=== PATIENT | male | born 1940 | race Caucasian/White ===

== ENCOUNTER 2020-03-08 10:51 | Outpatient (CLI) | payer MEDICARE, SELFPAY ==
--- NOTE | ~2020-03-08 | XR_ITS ---
XR chest 2V DATE: 03/08/2020 11:15 INDICATION: Preoperative evaluation. History of hypertension. TECHNIQUE: Frontal and lateral views COMPARISON: 06/25/2010 two-view chest FINDINGS: Normal heart size. Aortic arch calcification. No hilar or mediastinal enlargement. The lungs are moderately hyperinflated but clear of infiltrate or consolidation. No pleural effusion or pulmonary vascular congestion or pneumothorax. Dextroscoliosis and degenerative spurring of the thoracic spine. Bilateral glenohumeral joint replacement. IMPRESSION: Moderate hyperinflation; no active cardiopulmonary disease Aortic calcification Reviewed, dictated and finalized at location A.
--- NOTE | 2020-03-08 11:22 | ECG_ITS ---
Measurements Intervals [place] Rate: 95 P: CT: 0 QRS: 91 QRSD: 114 T: -3 QT: 388 QTc: 488 Interpretive Statements ATRIAL FIBRILLATION RIGHT AXIS DEVIATION INCOMPLETE RIGHT BUNDLE BRANCH BLOCK BORDERLINE ST-T WAVE ABNORMALITY- INFERIOR LEADS ABNORMAL ECG Electronically Signed On 03-08-2020 11:41:23 CDT by Flako Whiteside D.O.
== END 2020-03-08 10:52 | disposition home or self-care (01) ==
LOC: ANHIMG 10:53
PROVIDERS: PCP Family Medicine; Visit Provider Family Medicine
DX: Z01.818 Encounter for other preprocedural examination (principal); I50.30 Unspecified diastolic (congestive) heart failure; I48.91 Unspecified atrial fibrillation; I70.0 Atherosclerosis of aorta; R91.8 Other nonspecific abnormal finding of lung field
CPT/HCPCS: 71046; 93005

== ENCOUNTER 2020-07-31 15:00 | Inpatient (IN) | payer MEDICARE, SELFPAY ==
[2020-07-31] VITALS (11 sets, daily range): BP systolic 80–104; BP diastolic 47–66; PULSE 68–131; RESP 12–24; TEMP 36.3–39.1; O2SAT 94–96; BMI 34.2
--- NOTE | ~2020-07-31 | XR_ITS ---
EXAMINATION: XR foot LT min 3V DATE: 07/31/2020 16:28 INDICATION: Left foot swelling and erythema. TECHNIQUE: 4 views of left foot were obtained. COMPARISON: Left foot radiographs 12/17/2009 FINDINGS: There is severe hallux valgus. No acute fracture. There is chronic periosteal reaction of t he diaphyses of the second-fourth metatarsals, likely secondary to venous stasis. There is mild osteo arthritis of first metatarsophalangeal joint and many of the interphalangeal joints and midfoot joint s. There is severe osteoarthritis of second tarsometatarsal joint. There are enthesophytes at the pos terior and plantar aspects of calcaneal tuberosity. IMPRESSION: 1. Polyarticular osteoarthritis. 2. Severe hallux valgus. Reviewed, dictated and finalized at location A. ANCE COUNSELOR
--- NOTE | ~2020-07-31 | CT_ITS ---
EXAMINATION: CT abdomen pelvis w con DATE: 08/04/2020 11:58 INDICATION: Low abdominal pain. TECHNIQUE: Computed tomography (CT) of the abdomen and pelvis was performed with 100 mL Omnipaque 350 intravenous contrast. Automated exposure control and iterative reconstruction technique were employe d. The dose-length product was 1302.25 mGy-cm. COMPARISON: CT abdomen and pelvis 02/06/2015 FINDINGS: The visualized portions of the lung bases demonstrate smooth septal thickening, consistent with mild pulmonary edema. There are small pleural effusions. The heart size is normal. There are cor onary artery calcifications. No pericardial effusion. There is a 4 mm cyst in the liver. The gallblad frances, spleen, pancreas, and adrenal glands are normal. There are cysts in the kidneys measuring up to 1.4 cm on the right. The prostate is mildly enlarged. There are no dilated loops of bowel. The append ix is normal. There are no pathologically enlarged lymph nodes. There is no free intraperitoneal flui d. The bladder is markedly distended. Body wall edema is noted. There is a total right hip arthroplas ty. There is levocurvature and severe spondylosis of lumbar spine. There is a hemangioma in T9 verteb ral body. IMPRESSION: 1. Mild pulmonary edema. 2. Small pleural effusions. Reviewed, dictated and finalized at location A. ING PROPERTY MANAGER
--- NOTE | ~2020-07-31 | MR_ITS ---
EXAMINATION: MR foot LT wo/w con DATE: 08/02/2020 08:43 INDICATION: Left hallux osteomyelitis TECHNIQUE: Magnetic resonance imaging (MRI) of the left fore/mid foot was performed without intraveno us contrast. Sequences included sagittal T1-weighted FSE, sagittal fluid sensitive FSE STIR, coronal PD-weighted FS FSE, coronal T1-weighted FSE, axial PD-weighted FS FSE, and axial PD-weighted FSE. COMPARISON: Left foot radiographs dated 07/31/2020 FINDINGS: Hallux valgus. Normal marrow signal throughout with no reactive edema, fracture, ostomy myelitis or o ther pathologic marrow replacing process. Skin thickening with suggestion of overlying blister or ban daging about the plantar/medial aspect of the base of the great toe with intact appearing underlying dermal layer with edema in the subcutaneous fat but no abscess or sinus tract. Polyarticular osteoart hritis, severe at the second tarsal metatarsal joint, moderate at the fourth and fifth tarsal metatar delfino joints and mild at the first and third tarsal metatarsal, first, second and fifth metatarsophalan geal and multiple interphalangeal joints. Mild hypertrophic changes at the margins of a chronic juxta articular erosion with corticated margins and overhanging edges at the medial head of the first meta tarsal which could be related to bunion or gout. Additional enthesophyte at the lateral head of the f irst metatarsal at the insertion of the intact lateral collateral ligament complex which appears lax due to the valgus angulation. Remaining collateral ligament complex at the metatarsophalangeal and in terphalangeal are also intact. Flexor and extensor tendons are normal. No joint effusions. Additional subcutaneous edema over the dorsum of the forefoot. Fatty atrophy of the intrinsic musculature of th e foot. No abnormally enhancing masses identified. IMPRESSION: 1. No evident abscess, septic arthritis or osteomyelitis. 2. Polyarticular osteoarthritis as detailed above. 3. Chronic appearing erosion at the medial head of the first metatarsal which could be related to hailey lux valgus and bunion formation or gout. Reviewed, dictated and finalized at location A. SHANK COVERER IMPRESSION: 1. No evident abscess, septic arthritis or osteomyelitis. 2. Polyarticular osteoarthritis as detailed above. 3. Chronic appearing erosion at the medial head of the first metatarsal which c ould be related to hallux valgus and bunion formation or gout.
--- NOTE | ~2020-07-31 | US_ITS ---
EXAMINATION: US venous doppler LE EXAM DATE: 08/01/2020 14:10 INDICATION: LLE swelling LLE SWELLING TECHNIQUE: Multiple grayscale, color flow and Doppler images of the lower extremity deep venous syste ms bilaterally were obtained and reviewed. Comparison is made to prior examination from 10/24/2007. FINDINGS: Right side: The right common femoral, femoral and profunda veins demonstrate normal color flow, respi ratory variation, augmentation and compressibility. Compressibility, color flow confirmed within the right popliteal, posterior tibial, peroneal, and greater saphenous veins. Left side: The left common femoral, femoral and profunda veins demonstrate normal color flow, respira tory variation, augmentation and compressibility. Compressibility, color flow confirmed within the l eft popliteal, posterior tibial, peroneal, and greater saphenous veins. Mildly enlarged inguinal lymp h node likely reactive. IMPRESSION: 1. No lower extremity deep venous thrombosis bilaterally. Reviewed, dictated and finalized at location B. OR RISK ANALYST
[2020-07-31 16:08] LABS: Basophils Percent Auto 0.2 % (0.2-1.2); Eosinophils Percent Auto 0.2 % (0-4.4); Hematocrit 36.2 % (42.0-52.0); Hemoglobin 12.2 g/dL (14.0-18.0); Immature Granulocyte Absolute 0.06 K/mm3 (0.00-0.031); Immature Granulocyte Percent A 0.5 % (0-0.5); Lymphocytes Absolute Auto 0.45 K/mm3 (0.9-3.2); Lymphocytes Percent Auto 3.5 % (18.3-44.2); Mean Corpuscular HGB Conc 33.7 g/dl (32-36); Mean Corpuscular Hemoglobin 30.3 pg (26-34); Mean Platelet Volume 9.8 fl (7.4-10.4); Monocytes Absolute Auto 0.6 K/mm3 (0.1-0.6); Monocytes Percent Auto 4.7 % (2.6-8.5); Neutrophils Absolute Auto 11.7 K/mm3 (1.3-6.7); Neutrophils Percent Auto 90.9 % (45.5-73.1); Platelet Count Result 214 k/mm3 (150-375); Red Blood Count 4.02 M/mm3 (4.6-6.20); Red Cell Distribution Width 13.9 % (11.5-14.5); White Blood Count 12.8 K/mm3 (4.5-10.0)
[2020-07-31 16:18] LABS: INR 2.2; Prothrombin Time 24.8 Seconds (11.1-14.7)
[2020-07-31 16:19] LABS: Partial Thromboplastin Time 53.4 SECONDS (22.3-36.8)
[2020-07-31 16:21] LABS: Alanine Aminotransferase 16 U/L (4-50); Albumin Level 3.8 g/dL (3.5-5.1); Alkaline Phosphatase 95 U/L (38-126); Anion Gap 9 mmol/L (8-16); Aspartate Amino Transferase 23 U/L (17-59); Bilirubin,Total 1.1 mg/dL (0.2-1.3); Blood Urea Nitrogen 38 mg/dL (9-20); Calcium 8.8 mg/dL (8.4-10.2); Carbon Dioxide 31 mmol/L (22-30); Chloride 96 mmol/L (98-107); Estimated CRCL calculation 51 ml/min; Estimated Glomerular Filt Rate 53; Glucose 185 mg/dL (75-110); Potassium 3.2 mmol/L (3.4-5.0); Sodium 136 mmol/L (137-145)
[2020-07-31 16:22] LABS: Lactic Acid Reflex 3.1 mmol/L (0.7-2.1)
--- NOTE | 2020-07-31 16:49 | ECG_ITS ---
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
[2020-07-31] MEDS: SODIUM CHLORIDE 0.9% IV 3,200 ML/1,000 ML BAG 999 ML IV CONT (17:05)
--- NOTE | 2020-07-31 17:32 | ED.GENADULT ---
HPI - General Adult General Chief complaint: Extremity Injury, Lower <Tonie Galvin PA-C - Last Filed: 07/31/20 19:59> Stated complaint: possible cellulitis <Tonie Galvin PA-C - Last Filed: 07/31/20 19:59> Time Seen by Provider: 07/31/20 15:32 <Tonie Galvin PA-C - Last Filed: 07/31/20 19:59> Source: patient <Tonie Galvin PA-C - Last Filed: 07/31/20 19:59> Mode of arrival: ambulatory <NING Roe Last Filed: 07/31/20 19:59> Limitations: no limitations <NING Roe Last Filed: 07/31/20 19:59> History of Present Illness HPI narrative: Patient presents with chief complaint of redness, swelling and pain to the left lower leg that has been present for approximately 3 to 4 days. Patient states he has noticed discomfort while ambulating on the leg. He denies any drainage from the area. Patient states approximately 6 weeks ago he did have a callus removed from the left great toe but did not note any complications. Patient denies known fever, chills, nausea, vomiting, lethargy, chest pain, shortness of breath or any other symptoms. Patient reports he has A. fib for which he is anticoagulated with warfarin as well as diabetes. Patient denies any allergies to any medications. <Tonie Galvin PA-C - Last Filed: 07/31/20 19:59> Related Data Home medications: Home Medications Medication Instructions Recorded Confirmed finasteride 5 mg tablet 5 mg PO DAILY 08/21/19 07/31/20 furosemide 40 mg tablet 40 mg PO BID 08/21/19 07/31/20 Lactobacills gasseri-Bifidobac 1 cap PO DAILY 03/14/20 07/31/20 bifidum,longum 1.5 billion cell capsule tamsulosin 0.4 mg capsule 0.4 mg PO DAILY 03/14/20 07/31/20 warfarin 4 mg tablet 4 mg PO DAILY tablet 03/14/20 07/31/20 diltiazem HCl 240 mg 240 mg PO DAILY 07/17/20 07/31/20 capsule,extended release 24 hr <Tonie Galvin PA-C - Last Filed: 07/31/20 19:59> Allergies/adverse reactions: Allergies Allergy/AdvReac Type Severity Reaction Status Date / Time No Known Allergies Allergy Verified 08/01/20 09:17 <Tonie Galvin PA-C - Last Filed: 07/31/20 19:59> Review of Systems Review of Systems: Narrative: CONSTITUTIONAL: Denies fever, chills, or sweats. EYES: Denies visual changes, redness, or discharge. ENT: Denies rhinorrhea, congestion, sore throat, or otalgia. CARDIOVASCULAR: Denies chest pain, palpitations, or edema. RESPIRATORY: Denies cough or dyspnea. GASTROINTESTINAL: Denies abdominal pain, nausea, vomiting, or diarrhea. GENITOURINARY: Denies dysuria or hematuria. SKIN: Reports redness, swelling and pain left lower leg denies rash or itching. MUSCULOSKELETAL: Denies back pain, joint pain, or myalgia. NEUROLOGIC: Denies headache, numbness, dizziness, or weakness. PSYCHIATRIC: Denies anxiety or depression. <Tonie Galvin PA-C - Last Filed: 07/31/20 19:59> [facility] Past Medical History Medical History: Medical History A-fib BPH (benign prostatic hyperplasia) CKD (chronic kidney disease) stage 3, GFR 30-59 ml/min Diabetes Hypertension Osteoarthritis Peripheral neuropathy Right hip pain <Tonie Galvin PA-C - Last Filed: 07/31/20 19:59> Surgical History Surgical History: Surgical History History of arthroplasty of left shoulder <Tonie Galvin PA-C - Last Filed: 07/31/20 19:59> Family History Family History: Family History Father Family history of malignant neoplasm of stomach <Tonie Galvin PA-C - Last Filed: 07/31/20 19:59> Social History Social History: Social History Social History: uses cane, still drives Smoking status: Former smoker Alcohol intake: never Substance use: never Occupation/Education: retired Gender identit
[2020-07-31] MEDS: SODIUM CHLORIDE 0.9% IV 3,200 ML/1,000 ML BAG 1000 ML IV CONT ×2 (19:00→20:00)
--- NOTE | 2020-07-31 19:00 | PC.NURSE ---
Pt. received 3200 ML IV fluid bolus prior to this RN arrival. Unable to document appropriately in MAR. Charted in I&O and Julisa, RN notified.
[2020-07-31 19:06] LABS: Reflex Lactic Acid Yes or No Add Lactic
[2020-07-31 19:11] LABS: CRP 13.6 mg/dL (<1.0)
--- NOTE | 2020-07-31 19:59 | PM.IMHP ---
H&P: HPI History of Present Illness Date/Time: 07/31/20 19:59 Chief complaint: cellulitis LLE Narrative: En Wilson is a 80 year old male with past medical history of AFib on warfarin , BPH, diabetes type 2 who presents to the ED with chief complaint of left lower extremity redness/swelling / pain for the past 3 days. a month ago he had a callus removed on left great toe without complication. by Dr. Moses. Since then he has had no trauma to his lower extremity or bug bites that he knows of. His symptoms are limited to his left lower extremity medial aspect of his doll. he has no joint pain. He has no systemic complaints, denies fever, chills, nausea, vomiting, diarrhea. primary care provider was concerned and asked patient to come to hospital. In the ED: X-ray of his left foot she had polyarticular arthritis and severe hallux valgus. EKG showed AFib with RVR rate 111. lactic acid 3.1, potassium 3.2 elevated CRP 13.6, WBC 12.8 Review of Systems Review of Systems: Narrative: Constitutional: No Fever, No Chills, No Night Sweats, No Fatigue, No Malaise ENT/Mouth: No Hearing Changes, No Ear Pain, No Nasal Congestion, No Sinus Pain, No Hoarseness, No sore throat, No Rhinorrhea, No Swallowing Difficulty Eyes: No Eye Pain, No Redness, No Vision Changes Cardiovascular: No Chest Pain, No Palpitations, No Dyspnea on Exertion, No Orthopnea, No Claudication, No Edema Respiratory: No Cough, No Sputum, No Wheezing, No Shortness of Breath Gastrointestinal: No Nausea, No Vomiting, No Diarrhea, No Constipation, No Abdominal Pain, No Heartburn, No Hematochezia, No Melena Genitourinary: No Dysuria, No Urinary Frequency, No Hematuria, No Urinary Incontinence, No Urgency Musculoskeletal: No Arthralgias, No Myalgias, No Joint Swelling, No Joint Stiffness, No Back Pain Skin: left lower extremity erythema / tenderness. no drainage or purulence. Neuro: No Weakness, No Numbness, No Paresthesias, No Loss of Consciousness, No Syncope, No Dizziness, No Headache Psych: No Anxiety/Panic, No Depression, No Insomnia Heme: No Bruising, No Bleeding Lymph: No Adenopathy Endocrine: No Polyuria, No Polydipsia, No Temperature Intolerance [facility] Past Medical History Medical History A-fib BPH (benign prostatic hyperplasia) CKD (chronic kidney disease) stage 3, GFR 30-59 ml/min Diabetes Hypertension Osteoarthritis Peripheral neuropathy Right hip pain Surgical History Surgical History History of arthroplasty of left shoulder Family History Family History Father Family history of malignant neoplasm of stomach Social History Social History (Updated 08/01/20 @ 01:33 by Chioma Hollis DO) Social History: uses cane, still drives Smoking status: Former smoker Alcohol intake: never Substance use: never Occupation/Education: retired Gender identity (if verbalized by the patient): Male Spiritual care concerns: No Meds Home Medications and Allergies Home Medications Medication Instructions Recorded Confirmed Type finasteride 5 mg tablet 5 mg PO DAILY 08/21/19 07/31/20 History furosemide 40 mg tablet 40 mg PO BID 08/21/19 07/31/20 History pramipexole 1 mg tablet 1 mg PO .[facility] #90 tablet 10/05/19 07/31/20 Rx Lactobacills gasseri-Bifidobac 1 cap PO DAILY 03/14/20 07/31/20 History bifidum,longum 1.5 billion cell capsule metolazone 5 mg tablet 5 mg PO DAILY 03/14/20 07/31/20 History tamsulosin 0.4 mg capsule 0.4 mg PO DAILY 03/14/20 07/31/20 History warfarin 4 mg tablet 4 mg PO DAILY tablet 03/14/20 07/31/20 History metformin 500 mg tablet,extended 1,500 mg PO DAILY #270 tablet 03/21/20 07/31/20 Rx release 24 hr linaclotide 290 mcg capsule 290 mcg PO DAILY #90 cap 04/22/20 07/31/20 Rx allopurinol 100 mg tablet 200 mg PO DAILY #180 tablet
[2020-07-31 20:02] LABS: Lactic Acid 1.3 mmol/L (0.7-2.1)
--- NOTE | 2020-07-31 20:54 | ADMGEN ---
This patient, En Wilson, was admitted to Medical Room 251-. Patient/family oriented to hospital policies and general routines including ID bracelet, bed and alarms, visiting hours, pain management, procedures, bathroom and other care routines, personal items, smoking policy, room service/diet, and visiting hours. Information on how to activate the Rapid Response Team has been discussed. Patient/Family are encouraged to report perceived risks to care and to ask questions if they do not understand what they are told or what they should do.
[2020-07-31] MEDS: SODIUM CHLORIDE 0.9% IV 1,000 ML 100 ML IV CONT (21:00)
[2020-08-01] VITALS (8 sets, daily range): BP systolic 96–106; BP diastolic 42–59; PULSE 66–99; RESP 16–20; TEMP 36.1–36.9; O2SAT 90–96
[2020-08-01] MEDS: WARFARIN (*PBKC) 4 MG TABLET PO (02:39)
[2020-08-01] MEDS: HYDROcodone/acetaminophen (*CRX) 7.5-325 MG TABLET 1 TAB PO ×2 (05:15→21:51)
[2020-08-01 05:57] LABS: Hematocrit 32.3 % (42.0-52.0); Hemoglobin 10.6 g/dL (14.0-18.0); Mean Corpuscular HGB Conc 32.8 g/dl (32-36); Mean Corpuscular Hemoglobin 30.2 pg (26-34); Mean Platelet Volume 10.1 fl (7.4-10.4); Platelet Count Result 190 k/mm3 (150-375); Red Blood Count 3.51 M/mm3 (4.6-6.20); Red Cell Distribution Width 13.9 % (11.5-14.5); White Blood Count 9.9 K/mm3 (4.5-10.0)
[2020-08-01 06:10] LABS: Anion Gap 4 mmol/L (8-16); Blood Urea Nitrogen 31 mg/dL (9-20); Calcium 7.8 mg/dL (8.4-10.2); Carbon Dioxide 36 mmol/L (22-30); Chloride 97 mmol/L (98-107); Estimated CRCL calculation 60 ml/min; Estimated Glomerular Filt Rate > 60; Glucose 134 mg/dL (75-110); Potassium 2.8 mmol/L (3.4-5.0); Sodium 137 mmol/L (137-145)
[2020-08-01 07:31] LABS: Magnesium 1.8 mg/dL (1.6-2.3)
[2020-08-01] MEDS: TAMSULOSIN HCL 0.4 MG CAPSULE PO (08:56)
[2020-08-01] MEDS: allopurinoL 100 MG TABLET 200 MG PO (08:56)
[2020-08-01] MEDS: metFORMIN HCL XR 500 MG TAB.SR.24H 1500 MG PO (08:56)
[2020-08-01] MEDS: FINASTERIDE 5 MG TABLET PO (08:56)
[2020-08-01] MEDS: POTASSIUM CHLORIDE 20 MEQ PACKET (FOR LIQUID) 40 MEQ PO (08:59)
--- NOTE | 2020-08-01 11:03 | PM.IMPN ---
Progress Note: A&P Assessment and Plan (1) Sepsis: Qualifiers: Sepsis acute organ dysfunction status: unspecified Sepsis type: sepsis due to unspecified organism Qualified Code(s): A41.9 - Sepsis, unspecified organism Code(s): A41.9 - Sepsis, unspecified organism Status: Acute Assessment and Plan: Supported by fever 102.5F, tachycardia, and leukocytosis. Secondary to cellulitis of the left lower extremity. Lactic acid was elevated at 3.1 initially and normalized to 1.3 after he received judicious IV fluid hydration. IV fluids were discontinued as he is on diuretic therapy at home for underlying peripheral edema. Blood cultures were obtained and are pending. (2) Cellulitis of left leg: Code(s): L03.116 - Cellulitis of left lower limb Status: Acute Assessment and Plan: He presented with LLE cellulitis. He had a callus removed from the medial aspect of the 1st MTP 3 weeks ago. There is no open wound but the LLE is erythematous and the right great toe is swollen with hyperpigmentation and bruising. Will order MRI to evaluate for osteomyelitis. He notes significant improvement with IV cefazolin and vancomycin. He does not appear to have abscess or purulence at this time. (3) A-fib: Qualifiers: Atrial fibrillation type: unspecified Qualified Code(s): I48.91 - Unspecified atrial fibrillation Code(s): I48.91 - Unspecified atrial fibrillation Status: Chronic Assessment and Plan: RVR was present initially and may have been due to acute infection and/or potassium deficiency. Home diltiazem was resumed and rate has normalized. Continue to treat underlying sepsis with IV antibiotics. Continue home warfarin dosing which is therapeutic. Continue to monitor. 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 Continue home dosing. PT is 26.5. INR is 2.4 08/01. Continue to monitor PT/INR daily. 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 Secondary to diuretic use. He is on a large dose of potassium (180 mEq) daily prior to admission. Potassium was 2.8 today. IV KCl 40mEq and PO KCl 40mEq were ordered. IV KCl rate had to be decreased due to patient intolerance with pain and he has only received half of the dose. Repeat potassium was 2.8. Magnesium is normal. Continue potassium replacement. Repeat BMP (6) Type 2 diabetes mellitus with hyperglycemia: Qualifiers: Diabetes mellitus mcc insulin use: without terminal operator use Qualified Code(s): E11.65 - Type 2 diabetes mellitus with hyperglycemia Code(s): E11.65 - Type 2 diabetes mellitus with hyperglycemia Status: Acute Assessment and Plan: Hemoglobin A1c was 6.9%. Plan to hold metformin for now. Continue diabetic diet. Add ACHS glucose monitoring, sliding scale insulin, and hypoglycemia protocol. (7) BPH (benign prostatic hyperplasia): Qualifiers: Lower urinary tract symptom detail: urinary frequency Lower urinary tract symptom presence: symptoms present Qualified Code(s): N40.1 - Benign prostatic hyperplasia with lower urinary tract symptoms; R35.0 - Frequency of micturition Code(s): N40.0 - Benign prostatic hyperplasia without lower urinary tract symptoms Status: Acute Assessment and Plan: Chronic. Continue tamsulosin and finasteride. (8) Gout: Qualifiers: Chronicity: chronic Gout etiology: unspecified cause Gout site: unspecified site Presence of tophus: without tophus Qualified Code(s): M1A.9XX0 - Chronic gout, unspecified, without tophus (tophi) Code(s): M10.9 - Gout, unspecified Status: Acute Assessment and Plan: Chronic. Ur
[2020-08-01 12:31] LABS: INR 2.4; Prothrombin Time 26.5 Seconds (11.1-14.7)
[2020-08-01 14:59] LABS: Potassium 2.8 mmol/L (3.4-5.0)
[2020-08-01] MEDS: POTASSIUM CHLORIDE 20 MEQ TABLET 60 MEQ PO ×2 (15:42→20:05)
[2020-08-01 17:10] LABS: Glucose Point of Care 109 (65-105)
[2020-08-01] MEDS: WARFARIN (*PBKC) 3 MG TABLET PO (17:38)
[2020-08-01] MEDS: SACCHAROMYCES BOULARDII 250 MG CAPSULE PO (17:38)
[2020-08-01] MEDS: PRAMIPEXOLE 1 MG TABLET PO (20:06)
[2020-08-01 20:07] LABS: Glucose Point of Care 163 (65-105)
[2020-08-02] VITALS (9 sets, daily range): BP systolic 98–104; BP diastolic 59–62; PULSE 72–93; RESP 16–18; TEMP 36.6–37.2; O2SAT 96–97
--- NOTE | 2020-08-02 | ECHO_ITS ---
Patient Info Name: En Wilson Age: 80 years : 1940 Gender: Male Ht: 70 in Wt: 238 lbs BSA: 2.35 m2 HR: 78 bpm BP: 98 / 59 mmHg Heart Rhythm: Atrial Fibrillation Technical Quality: Fair Exam Date: 08/02/2020 4:14 PM Exam Location: [facility] Pulmonary Exam Room: [facility] Patient Status: Inpatient Admit Date: 07/31/2020 Staff Ordering Physician: Evangelina Cornejo PA-C Letter Stamping Machine Operator: Fatemeh Chand RDCS Attending Provider: Evangelina Cornejo PA-C Exam Type: CA echo dop color flow w con Study Info Indications - afib Complete two-dimensional, color flow and Doppler transthoracic echocardiogram is performed with contrast to opacify the left ventricle and to improve the deliniation of the left ventricle endocardial borders. Summary 1. Technically difficult study. 2. Left ventricular systolic function is normal, estimated at 55-60%. 3. There is no increased left ventricular wall thickness. 4. Left atrial chamber dimension is moderately enlarged. 5. Right atrial chamber dimension is moderate to severely enlarged. 6. There is no aortic valve stenosis. 7. There is trace mitral valve regurgitation. 8. There is trace tricuspid valve regurgitation. 9. No pulmonary hypertension, estimated pulmonary arterial systolic pressure is 34 mmHg. Left Ventricle Left ventricular chamber dimension is normal. Left ventricular systolic function is normal, estimated at 55-60%. There is no increased left ventricular wall thickness. The left ventricular diastolic function is indeterminate. Technically difficult study. Right Ventricle Right ventricular chamber dimension is normal. Right ventricular systolic function is normal. Left Atria Left atrial chamber dimension is moderately enlarged. Right Atria Right atrial chamber dimension is moderate to severely enlarged. Aortic Valve The aortic valve is probable trileaflet. There is mild aortic valve sclerosis. There is no aortic valve regurgitation. There is no aortic valve stenosis. Pulmonic Valve The pulmonic valve is not well visualized. There is trace pulmonic regurgitation. Mitral Valve The mitral valve has normal leaflets. There is trace mitral valve regurgitation. The mitral valve annulus is mildly calcified. Tricuspid Valve The tricuspid valve leaflets are normal. There is trace tricuspid valve regurgitation. No pulmonary hypertension, estimated pulmonary arterial systolic pressure is 34 mmHg. Pericardium/Pleural The pericardium appears normal. There is trivial pericardial effusion. Inferior Vena Cava Normal inferior vena cava with no collapse upon inspiration consistent with elevated right atrial pressure, 10 mmHg. Aorta The aortic root size at the sinus of Valsalva is normal. Left Ventricular Outflow Tract Name Value Normal LVOT 2D LVOT Diameter 2.08 cm LVOT Doppler LVOT Peak Gradient 4 mmHg LVOT Mean Gradient 2 mmHg LVOT VTI 20.41 cm LVOT VTI/AV VTI Ratio 0.93 LVOT Stroke Volume 69
[2020-08-02] MEDS: HYDROcodone/acetaminophen (*CRX) 7.5-325 MG TABLET 1 TAB PO ×2 (05:52→17:59)
[2020-08-02 05:53] LABS: Anion Gap 3 mmol/L (8-16); Blood Urea Nitrogen 23 mg/dL (9-20); Calcium 8.1 mg/dL (8.4-10.2); Carbon Dioxide 33 mmol/L (22-30); Chloride 102 mmol/L (98-107); Estimated CRCL calculation 65 ml/min; Estimated Glomerular Filt Rate > 60; Glucose 142 mg/dL (75-110); Sodium 138 mmol/L (137-145)
[2020-08-02 05:58] LABS: INR 2.6; Prothrombin Time 28.5 Seconds (11.1-14.7)
[2020-08-02 07:52] LABS: Creatinine Urine 58.4 mg/dL
[2020-08-02 07:59] LABS: Potassium Urine Random 55.5 meq/L
[2020-08-02 09:19] LABS: Hematocrit 31.5 % (42.0-52.0); Hemoglobin 10.2 g/dL (14.0-18.0); Mean Corpuscular HGB Conc 32.4 g/dl (32-36); Mean Corpuscular Hemoglobin 29.8 pg (26-34); Mean Corpuscular Volume 92.1 fl (80-100); Mean Platelet Volume 10.6 fl (7.4-10.4); Platelet Count Result 209 k/mm3 (150-375); Red Blood Count 3.42 M/mm3 (4.6-6.20); Red Cell Distribution Width 13.9 % (11.5-14.5); White Blood Count 8.6 K/mm3 (4.5-10.0)
[2020-08-02] MEDS: TAMSULOSIN HCL 0.4 MG CAPSULE PO (09:27)
[2020-08-02] MEDS: allopurinoL 100 MG TABLET 200 MG PO (09:27)
[2020-08-02] MEDS: SACCHAROMYCES BOULARDII 250 MG CAPSULE PO ×2 (09:27→17:57)
[2020-08-02] MEDS: FINASTERIDE 5 MG TABLET PO (09:27)
[2020-08-02] MEDS: POTASSIUM CHLORIDE 20 MEQ TABLET 60 MEQ PO ×3 (09:27→17:57)
[2020-08-02 09:44] LABS: Glucose Point of Care 195 (65-105)
--- NOTE | 2020-08-02 09:56 | PM.IMPN ---
Progress Note: A&P Assessment and Plan (1) Sepsis: Qualifiers: Sepsis acute organ dysfunction status: unspecified Sepsis type: sepsis due to unspecified organism Qualified Code(s): A41.9 - Sepsis, unspecified organism Code(s): A41.9 - Sepsis, unspecified organism Status: Acute Assessment and Plan: Supported by fever 102.5F, tachycardia, and leukocytosis at admission. Secondary to cellulitis of the left lower extremity. Lactic acid was elevated at 3.1 initially and normalized to 1.3 after he received judicious IV fluid hydration. IV fluids were discontinued as he is on diuretic therapy at home for underlying peripheral edema and we do not want to precipitate volume overload. Blood cultures were obtained and show no growth to date. (2) Cellulitis of left leg: Code(s): L03.116 - Cellulitis of left lower limb Status: Acute Assessment and Plan: He presented with LLE cellulitis. He had a callus removed from the medial aspect of the 1st MTP 3 weeks ago. There is no open wound but the LLE is erythematous and the right great toe is swollen with hyperpigmentation and bruising. MRI was performed and showed no evidence of abscess, septic arthritis, or osteomyelitis. He continues to improve. Continue cefazolin (day 3 - initiated 07/31). Discontinue vancomycin as there is no evidence of abscess or purulence. Continue to monitor. (3) A-fib: Qualifiers: Atrial fibrillation type: unspecified Qualified Code(s): I48.91 - Unspecified atrial fibrillation Code(s): I48.91 - Unspecified atrial fibrillation Status: Chronic Assessment and Plan: RVR was present initially and may have been due to acute infection and/or potassium deficiency. Home diltiazem was resumed and rate has normalized. Continue to treat underlying sepsis with IV antibiotics. Continue home warfarin dosing which is therapeutic. Continue to monitor. 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 Continue home dosing. PT is 28.5. INR is 2.6 08/02. Continue to monitor PT/INR daily. 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 Etiology is not completely clear but felt secondary to diuretic use. He has been off his diuretics for two days but potassium is still low. He is on a large dose of potassium (180 mEq) daily prior to admission. He does not have any ongoing GI losses. Blood pressures are on the low side so hyperaldosteronism seems less likely. Potassium was 2.8 08/01 and remains 3.0 despite large volumes of potassium replacement. He did not tolerate IV potassium given pain. Magnesium is normal. Random cortisol was normal. Urine potassium was 55.5 and urine potassium to creatinine ratio is 0.95. I have asked neurology for their input regarding his hypokalemia and recommendations are greatly appreciated. Continue prior to admission potassium supplementation for now as he is intolerant to IV KCl. Repeat potassium this afternoon. (6) Type 2 diabetes mellitus with hyperglycemia: Qualifiers: Diabetes mellitus mechanical meter tester insulin use: without mechanical meter tester use Qualified Code(s): E11.65 - Type 2 diabetes mellitus with hyperglycemia Code(s): E11.65 - Type 2 diabetes mellitus with hyperglycemia Status: Acute Assessment and Plan: Hemoglobin A1c was 6.9%. Plan to hold metformin for now. Blood sugars are at target. Continue diabetic diet. Add ACHS glucose monitoring, sliding scale insulin, and hypoglycemia protocol. (7) BPH (benign prostatic hyperplasia): Qualifiers: Lower urinary tract symptom detail: urinary frequency Lower urinary tract symptom presence: symptoms present Qualified Code(s): N40.1 Miri Hernandez
[2020-08-02 11:38] LABS: Glucose Point of Care 160 (65-105)
--- NOTE | 2020-08-02 14:59 | PM.CNNEP ---
Assessment and Plan Assessment and plan (1) Hypokalemia: Code(s): E87.6 - Hypokalemia Status: Acute Assessment and Plan: En has low potassium. He is on metolazone and furosemide which together to have a substantial kaliiuretic affect. His urine potassium is 55 which is high but that is consistent with the diuretics even though he was not on them for 2 days. He will probably need another couple of days off the diuretics with a repeat in the potassium to see if his urine potassium is still high in the presence of low serum potassium. Having said that, he is on potassium chloride at home 60 mEq 3 times a day. This seems like an awful lot of potassium for the amount of diuretics he is on. Hormones can cause low potassium was well such as aldosterone, renin, cortisol, and adrenal hormones however usually this comes with hypertension. Interstitial disease can do this as well. Infiltrative diseases such as multiple myeloma can do this. Certain Other medications like chemotherapy agents can do this as well but there is no history of being on any of these kind of medications. he does not have a history of nausea vomiting or diarrhea to suspect GI losses of potassium. at this point, will continue to Hold off on diuretic and repeat the urine potassium on Wednesday morning. I will also check Metanephrines,renin, aldosterone and 20 for urines for cortisol. once diuretics start again we should use a loop diuretic plus spironolactone instead of metolazone. (2) Peripheral edema: Code(s): R60.9 - Edema, unspecified Status: Acute Assessment and Plan: The patient has swelling. Will check an echocardiogram. Venous Dopplers are negative. There is no history of liver disease. Consider a CT abdomen to look for retroperitoneal causes of swelling , if the other tests come up unremarkable. (3) Cellulitis of left leg: Code(s): L03.116 - Cellulitis of left lower limb Status: Acute Assessment and Plan: He is on antibiotics. Blood cultures are negative so far. (4) A-fib: Qualifiers: Atrial fibrillation type: unspecified Qualified Code(s): I48.91 - Unspecified atrial fibrillation Code(s): I48.91 - Unspecified atrial fibrillation Status: Chronic Assessment and Plan: Heart rate is under good control (5) Obstructive sleep apnea on CPAP: Code(s): G47.33 - Obstructive sleep apnea (adult) (pediatric); Z99.89 - Dependence on other enabling machines and devices Status: Acute Assessment and Plan: he uses a CPAP machine (6) Type 2 diabetes mellitus with hyperglycemia: Qualifiers: Diabetes mellitus senior care insulin use: without senior care use Qualified Code(s): E11.65 - Type 2 diabetes mellitus with hyperglycemia Code(s): E11.65 - Type 2 diabetes mellitus with hyperglycemia Status: Acute Assessment and Plan: he is on insulin sliding scale. History of Present Illness Reason for Consult Consult date: 08/02/20 Chief Complaint Chief complaint: cellulitis LLE History of Present Illness Narrative: En is a very pleasant gentleman who has chronic swelling and low potassium. The patient says he has had swelling off and on for years. He is been on diuretics for years as well and has been told that his potassium has been low. So he has been taking supplementary potassium for very long time. This time the patient came in the hospital because of swelling and pain with redness in the left lower extremity. This is felt to be cellulitis and so he was brought in the hospital and given antibiotics. He says this feels better but he still swollen. On admission of the hospitals potassium was very low so diuretics were held. He has been getting copious amounts of potassium by mouth. He does not tolerate potassium in the vein. In spite of this is Potassium is remained low. Earlier he had a urine potassium
[2020-08-02 15:40] LABS: Potassium 3.4 mmol/L (3.4-5.0)
[2020-08-02 16:24] LABS: Basophils Percent Auto 0.1 % (0.2-1.2); Eosinophils Absolute Auto 0.3 K/mm3 (0-0.3); Eosinophils Percent Auto 3.6 % (0-4.4); Hemoglobin 11.2 g/dL (14.0-18.0); Immature Granulocyte Absolute 0.03 K/mm3 (0.00-0.031); Immature Granulocyte Percent A 0.3 % (0-0.5); Lymphocytes Absolute Auto 0.58 K/mm3 (0.9-3.2); Lymphocytes Percent Auto 6.7 % (18.3-44.2); Mean Corpuscular Hemoglobin 29.6 pg (26-34); Mean Corpuscular Volume 92.3 fl (80-100); Monocytes Absolute Auto 0.5 K/mm3 (0.1-0.6); Monocytes Percent Auto 6.1 % (2.6-8.5); Neutrophils Absolute Auto 7.2 K/mm3 (1.3-6.7); Neutrophils Percent Auto 83.2 % (45.5-73.1); Platelet Count Result 237 k/mm3 (150-375); Red Blood Count 3.79 M/mm3 (4.6-6.20); Red Cell Distribution Width 13.8 % (11.5-14.5); White Blood Count 8.7 K/mm3 (4.5-10.0)
[2020-08-02 16:54] LABS: Glucose Point of Care 107 (65-105)
[2020-08-02 17:10] LABS: Creatine Kinase 66 U/L (55-170)
[2020-08-02 17:19] LABS: Complement C3 105 mg/dL (88-165)
[2020-08-02] MEDS: WARFARIN (*PBKC) 4 MG TABLET PO (17:57)
[2020-08-02] MEDS: PRAMIPEXOLE 1 MG TABLET PO (21:18)
[2020-08-03] VITALS (9 sets, daily range): BP systolic 103–123; BP diastolic 57–68; PULSE 65–106; RESP 16–20; TEMP 36.2–37; O2SAT 95–99
[2020-08-03] MEDS: KETOROLAC 30 MG/ML VIAL (*BKC) IV PUSH (01:18)
[2020-08-03 01:27] LABS: Glucose Point of Care 174 (65-105)
[2020-08-03 07:46] LABS: INR 2.6; Prothrombin Time 28.7 Seconds (11.1-14.7)
[2020-08-03 07:59] LABS: Albumin Level 3.3 g/dL (3.5-5.1); Anion Gap 5 mmol/L (8-16); Blood Urea Nitrogen 19 mg/dL (9-20); Calcium 8.5 mg/dL (8.4-10.2); Carbon Dioxide 31 mmol/L (22-30); Chloride 103 mmol/L (98-107); Estimated CRCL calculation 60 ml/min; Estimated Glomerular Filt Rate > 60; Glucose 147 mg/dL (75-110); Magnesium 2.3 mg/dL (1.6-2.3); Phosphorus 2.7 mg/dL (2.5-4.5); Potassium 3.9 mmol/L (3.4-5.0); Sodium 139 mmol/L (137-145)
[2020-08-03 08:10] LABS: Mean Corpuscular HGB Conc 31.4 g/dl (32-36); Mean Corpuscular Hemoglobin 29.8 pg (26-34); Mean Corpuscular Volume 94.9 fl (80-100); Platelet Count Result 228 k/mm3 (150-375); Red Blood Count 3.69 M/mm3 (4.6-6.20); Red Cell Distribution Width 13.8 % (11.5-14.5); White Blood Count 7.7 K/mm3 (4.5-10.0)
[2020-08-03 08:47] LABS: Glucose Point of Care 174 (65-105)
[2020-08-03] MEDS: SACCHAROMYCES BOULARDII 250 MG CAPSULE PO ×2 (09:21→17:17)
[2020-08-03] MEDS: FINASTERIDE 5 MG TABLET PO (09:21)
[2020-08-03] MEDS: TAMSULOSIN HCL 0.4 MG CAPSULE PO (09:21)
--- NOTE | 2020-08-03 09:23 | PM.PNNEP ---
Progress Note: A&P Assessment and Plan (1) Hypokalemia: Code(s): E87.6 - Hypokalemia Status: Acute Assessment and Plan: En has low potassium. He is on metolazone and furosemide which together to have a substantial kaliiuretic affect. his potassium is better today after substantial repletion of potassium stores. He probably had total body potassium depletion. Currently his potassium is better. He is off diuretics. He is eating well. Hopefully his potassium should be okay since he is off diuretics. I will stop his potassium and recheck a potassium at 4:00 p.m. today and in the morning. If the potassium drops below normal , then this would indicate that there something more than just diuretics doing this. If it happens I will I will repeat the urine electrolytes once again. the patient denies any symptoms of GI potassium loss. Multiple hormonal tests are pending. (2) Peripheral edema: Code(s): R60.9 - Edema, unspecified Status: Acute Assessment and Plan: The patient has swelling. Echocardiogram is pending. Venous Dopplers are negative. There is no history of liver disease. Consider a CT abdomen to look for retroperitoneal causes of swelling , if the other tests come up unremarkable. (3) Cellulitis of left leg: Code(s): L03.116 - Cellulitis of left lower limb Status: Acute Assessment and Plan: He is on antibiotics. Blood cultures are negative so far. 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 Subjective Date/time seen: 08/03/20 09:23 Interval history: En is feeling okay today. No chest pain or shortness of breath. Still has some erythema at the site of cellulitis. Some weeping present. Review of Systems Cardiovascular: Cardiovascular: Reports no additional cardiovascular complaints Respiratory: Respiratory: Reports no additional respiratory complaints Gastrointestinal: Gastrointestinal: Reports no additional gastrointestinal complaints Genitourinary: Genitourinary: Reports no additional male genitourinary complaints Exam Narrative: Exam Narrative: WDWN in NAD skin no rash Except for the cellulitis head ncat lungs clear cor reg no rub abd BS+ nontender and soft ext 1+ edema. Objective Data Vital Signs Vital Signs: Vital Signs - 24 hr 08/02/20 12:00 08/02/20 14:00 08/02/20 16:00 Temperature 36.6 C Pulse Rate 93 83 72 Respiratory Rate 16 Blood Pressure 98/59 L Pulse Oximetry 97 08/02/20 20:00 08/02/20 22:00 08/03/20 00:00 Temperature 37.2 C Pulse Rate 92 86 76 Respiratory Rate 16 Blood Pressure 104/62 Pulse Oximetry 96 08/03/20 01:04 08/03/20 04:00 08/03/20 06:00 Temperature 36.6 C 36.8 C Pulse Rate 79 77 82 Respiratory Rate 20 16 Blood Pressure 103/57 L 106/67 Pulse Oximetry 95 97 Intake/Output Intake/Output: Intake & Output 07/31/20 08/01/20 08/02/20 08/03/20 23:59 23:59 23:59 23:59 Intake Total 6900 2660 1620 520 Output Total 700 3750 650 950 Balance 6200 -1090 970 -430 Meds/Results Medications: Active Medications Ge
[2020-08-03] MEDS: allopurinoL 100 MG TABLET 200 MG PO (10:06)
[2020-08-03 11:51] LABS: Glucose Point of Care 128 (65-105)
--- NOTE | 2020-08-03 14:14 | PM.IMPN ---
Progress Note: A&P Assessment and Plan (1) Sepsis: Qualifiers: Sepsis acute organ dysfunction status: unspecified Sepsis type: sepsis due to unspecified organism Qualified Code(s): A41.9 - Sepsis, unspecified organism Code(s): A41.9 - Sepsis, unspecified organism Status: Acute Assessment and Plan: Supported by fever 102.5F, tachycardia, and leukocytosis at admission. Secondary to cellulitis of the left lower extremity. Lactic acid was elevated at 3.1 initially and normalized to 1.3 after he received judicious IV fluid hydration. IV fluids were discontinued as he is on diuretic therapy at home for underlying peripheral edema and we do not want to precipitate volume overload. Blood cultures were obtained and show no growth to date. (2) Cellulitis of left leg: Code(s): L03.116 - Cellulitis of left lower limb Status: Acute Assessment and Plan: He presented with LLE cellulitis. He had a callus removed from the medial aspect of the 1st MTP 3 weeks ago. There is no open wound left great toe is swollen with hyperpigmentation and bruising. MRI was performed and showed no evidence of abscess, septic arthritis, or osteomyelitis; evidence of blister noted on MRI which correlates with exam findings, as well. He otherwise continues to improve. Continue cefazolin (day 4 - initiated 07/31). Discontinue vancomycin as there is no evidence of abscess or purulence. Continue to monitor. (3) A-fib: Qualifiers: Atrial fibrillation type: unspecified Qualified Code(s): I48.91 - Unspecified atrial fibrillation Code(s): I48.91 - Unspecified atrial fibrillation Status: Chronic Assessment and Plan: RVR was present initially and may have been due to acute infection and/or potassium deficiency. Home diltiazem was resumed and rate has normalized. Continue to treat underlying sepsis with IV antibiotics. Continue home warfarin dosing which is therapeutic. Continue to monitor. (4) [facility] current use of anticoagulants with INR goal of 2.0-3.0: Code(s): Z79.01 - [facility] (current) use of anticoagulants Status: Acute Assessment and Plan: He is on warfarin prior to admission which is therapeutic. Continue home dosing. INR is 2.6 08/03. Continue to monitor PT/INR daily. 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 Etiology is not completely clear but felt secondary to diuretic use. He has been off his diuretics for two days but potassium is still low. He is on a large dose of potassium (180 mEq) daily prior to admission. He does not have any ongoing GI losses. Blood pressures are on the low side so hyperaldosteronism seems less likely. Potassium 3.9 today. Nephrology consulted and appreciate recommendation; await further rec. He did not tolerate IV potassium given pain. Magnesium is normal. Random cortisol was normal. Urine potassium was 55.5 and urine potassium to creatinine ratio is 0.95. (6) Type 2 diabetes mellitus with hyperglycemia: Qualifiers: Diabetes mellitus terminal make up operator insulin use: without half-way use Qualified Code(s): E11.65 - Type 2 diabetes mellitus with hyperglycemia Code(s): E11.65 - Type 2 diabetes mellitus with hyperglycemia Status: Acute Assessment and Plan: Hemoglobin A1c was 6.9%. Plan to hold metformin for now. Blood sugars are at target. Continue diabetic diet, ACHS glucose monitoring, sliding scale insulin, and hypoglycemia protocol. (7) BPH (benign prostatic hyperplasia): Qualifiers: Lower urinary tract symptom presence: symptoms present Lower urinary tract symptom detail: urinary frequency Qualified Co
[2020-08-03 16:16] LABS: Potassium 3.8 mmol/L (3.4-5.0)
[2020-08-03 16:51] LABS: Glucose Point of Care 217 (65-105)
[2020-08-03 16:52] LABS: Glucose Point of Care 181 (65-105)
[2020-08-03 16:52] LABS: Glucose Point of Care 157 (65-105)
[2020-08-03] MEDS: WARFARIN (*PBKC) 3 MG TABLET PO (17:20)
[2020-08-03 17:28] LABS: Glucose Point of Care 156 (65-105)
[2020-08-03 18:35] LABS: Total Volume 24 Hour Urine 1500 ml
[2020-08-03 18:41] LABS: Sodium 24 Hour Urine 63 mmol/day (40-220); Sodium Urine Random 42 meq/L
[2020-08-03] MEDS: PRAMIPEXOLE 1 MG TABLET PO (21:03)
[2020-08-03] MEDS: HYDROcodone/acetaminophen (*CRX) 7.5-325 MG TABLET 1 TAB PO (21:05)
[2020-08-03 21:31] LABS: Glucose Point of Care 188 (65-105)
[2020-08-04] VITALS (7 sets, daily range): BP systolic 105–116; BP diastolic 55–71; PULSE 75–94; RESP 16–20; TEMP 36.3–36.4; O2SAT 96–98
[2020-08-04 06:15] LABS: Hematocrit 32.7 % (42.0-52.0); Hemoglobin 10.3 g/dL (14.0-18.0); Mean Corpuscular HGB Conc 31.5 g/dl (32-36); Mean Corpuscular Hemoglobin 29.3 pg (26-34); Mean Corpuscular Volume 92.9 fl (80-100); Mean Platelet Volume 10.1 fl (7.4-10.4); Platelet Count Result 234 k/mm3 (150-375); Red Blood Count 3.52 M/mm3 (4.6-6.20); Red Cell Distribution Width 13.6 % (11.5-14.5); White Blood Count 7.1 K/mm3 (4.5-10.0)
[2020-08-04 06:19] LABS: INR 3.1; Prothrombin Time 32.5 Seconds (11.1-14.7)
[2020-08-04 06:28] LABS: Anion Gap 3 mmol/L (8-16); Blood Urea Nitrogen 16 mg/dL (9-20); Calcium 8.3 mg/dL (8.4-10.2); Carbon Dioxide 33 mmol/L (22-30); Chloride 103 mmol/L (98-107); Estimated CRCL calculation 72 ml/min; Estimated Glomerular Filt Rate > 60; Glucose 141 mg/dL (75-110); Magnesium 2.3 mg/dL (1.6-2.3); Potassium 3.5 mmol/L (3.4-5.0); Sodium 139 mmol/L (137-145)
[2020-08-04] MEDS: HYDROcodone/acetaminophen (*CRX) 7.5-325 MG TABLET 1 TAB PO ×2 (06:50→22:04)
[2020-08-04] MEDS: allopurinoL 100 MG TABLET 200 MG PO (08:12)
[2020-08-04] MEDS: FINASTERIDE 5 MG TABLET PO (08:12)
[2020-08-04] MEDS: TAMSULOSIN HCL 0.4 MG CAPSULE PO (08:12)
[2020-08-04] MEDS: SACCHAROMYCES BOULARDII 250 MG CAPSULE PO ×2 (08:13→16:51)
--- NOTE | 2020-08-04 08:55 | PM.PNNEP ---
Progress Note: A&P Assessment and Plan (1) Hypokalemia: Code(s): E87.6 - Hypokalemia Status: Acute Assessment and Plan: En had low potassium. Diuretics were held and potassium was supplemented. Now he is off potassium and his potassium Level has been stable. he still has aldosterone renin and cortisol levels pending but I think that this is most likely hypokalemia due to his diuretics. (2) Peripheral edema: Code(s): R60.9 - Edema, unspecified Status: Acute Assessment and Plan: The patient has swelling. Echocardiogram is Normal Venous Dopplers are negative. He has sleep apnea but is using the CPAP machine and is echocardiogram did not show pulmonary hypertension so I do not think that this is contributing. will check a CT of the abdomen and pelvis to rule out retroperitoneal issues. If this is negative then I guess it comes down to inadequate lymph or venous drainage. He will probably need diuretics in the future. I would suggest furosemide plus spironolactone instead of metolazone. He can start on this and check a potassium in a couple of days once discharged. He can follow-up with me in the office if he likes. (3) Cellulitis of left leg: Code(s): L03.116 - Cellulitis of left lower limb Status: Acute Assessment and Plan: He is on antibiotics. Blood cultures are negative so far. 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 Subjective Date/time seen: 08/04/20 08:55 Interval history: En is feeling okay today. he still has some swelling. This is about the same. No shortness of breath Review of Systems Cardiovascular: Cardiovascular: Reports no additional cardiovascular complaints Respiratory: Respiratory: Reports no additional respiratory complaints Gastrointestinal: Gastrointestinal: Reports no additional gastrointestinal complaints Genitourinary: Genitourinary: Reports no additional male genitourinary complaints Exam Narrative: Exam Narrative: WDWN in NAD skin no rash Except for the cellulitis head ncat lungs clear cor reg no rub abd BS+ nontender and soft ext 1+ edema, a little worse on the left.. Objective Data Vital Signs Vital Signs: Vital Signs - 24 hr 08/03/20 14:00 08/03/20 16:00 08/03/20 20:00 Temperature 36.2 C L Pulse Rate 91 65 106 H Respiratory Rate 18 Blood Pressure 123/61 Pulse Oximetry 99 08/03/20 22:00 08/04/20 00:00 08/04/20 04:00 Temperature 37.0 C Pulse Rate 106 H 76 86 Respiratory Rate 18 Blood Pressure 120/68 Pulse Oximetry 97 08/04/20 06:00 Temperature 36.4 C Pulse Rate 78 Respiratory Rate 16 Blood Pressure 110/71 Pulse Oximetry 96 Intake/Output Intake/Output: Intake & Output 08/01/20 08/02/20 08/03/20 08/04/20 23:59 23:59 23:59 23:59 Intake Total 2660 1620 3060 830 Output Total 3750 650 1950 Balance -6992 537 8671 830 Meds/Results Medications: Active Medications Generic Name Dose Route Start Last Admin Trade Name Freq PRN Reason Stop Dose Admin Hydrocodone Bitart/Acetaminophen 1 tab
--- NOTE | 2020-08-04 09:05 | ECG_ITS ---
Measurements Intervals [place] Rate: 82 P: CA: 0 QRS: 89 QRSD: 98 T: 29 QT: 355 QTc: 417 Interpretive Statements ATRIAL FIBRILLATION LOW QRS VOLTAGE IN PRECORDIAL LEADS ABNORMAL ECG Electronically Signed On 08-04-2020 17:56:57 PROTECTION ANALYST by Flako Whiteside D.O.
[2020-08-04 09:43] LABS: Potassium 3.6 mmol/L (3.4-5.0)
[2020-08-04 09:50] LABS: Magnesium 2.3 mg/dL (1.6-2.3)
[2020-08-04 12:06] LABS: Glucose Point of Care 145 (65-105)
[2020-08-04 12:06] LABS: Glucose Point of Care 127 (65-105)
[2020-08-04] MEDS: FUROSEMIDE 40 MG TABLET PO (14:34)
--- NOTE | 2020-08-04 15:20 | PM.IMPN ---
Progress Note: A&P Assessment and Plan (1) Urinary retention due to benign prostatic hyperplasia: Code(s): N40.1 - Benign prostatic hyperplasia with lower urinary tract symptoms; R33.8 - Other retention of urine Status: Acute Assessment and Plan: He has a hx of BPH and is on finasteride and tamsulosin. CT showed markedly distended bladder. Bladder scan showed 600-900cc residual after voiding. The patient was agreeable to hayes catheter after I discussed the adverse effects of urinary retention. He follows with Dr. Yo. I will ask urology to see him tomorrow to establish a plan. (2) Sepsis: Qualifiers: Sepsis acute organ dysfunction status: unspecified Sepsis type: sepsis due to unspecified organism Qualified Code(s): A41.9 - Sepsis, unspecified organism Code(s): A41.9 - Sepsis, unspecified organism Status: Acute Assessment and Plan: Supported by fever 102.5F, tachycardia, and leukocytosis at admission. Secondary to cellulitis of the left lower extremity. Lactic acid was elevated at 3.1 initially and normalized to 1.3 after he received judicious IV fluid hydration. IV fluids were discontinued as he is on diuretic therapy at home for underlying peripheral edema and we do not want to precipitate volume overload. Blood cultures were obtained and show no growth to date. (3) Cellulitis of left leg: Code(s): L03.116 - Cellulitis of left lower limb Status: Acute Assessment and Plan: He presented with LLE cellulitis. He had a callus removed from the medial aspect of the 1st MTP 3 weeks ago. MRI was performed and showed no evidence of abscess, septic arthritis, or osteomyelitis. He continues to improve. Continue cefazolin (day 5 - initiated 07/31). He has improved significantly. Continue to monitor. WBC has normalized and he is afebrile. He will need to continue PO antibiotics at discharge. (4) A-fib: Qualifiers: Atrial fibrillation type: unspecified Qualified Code(s): I48.91 - Unspecified atrial fibrillation Code(s): I48.91 - Unspecified atrial fibrillation Status: Chronic Assessment and Plan: RVR was present initially and may have been due to acute infection and/or potassium deficiency. Home diltiazem was resumed and rate has normalized. INR is 3.1 so warfarin will be held for tonight. Continue to monitor. 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 INR is 3.1. Hold warfarin for tonight. Continue to monitor PT/INR daily with repeat labs tomorrow. (6) Hypokalemia: Code(s): E87.6 - Hypokalemia Status: Chronic Assessment and Plan: Chronic and resolved. Etiology is felt secondary to diuretic use. Diuretics were held and potassium supplementation was discontinued and potassium normalized. He was seen by nephrology and input is greatly appreciated. Serum and urine immunology and protein electrophoresis were ordered and are pending. Urine cortisol and aldosterone were also ordered. CT abd/pelvis was ordered and shows pt is mildly fluid positive. Bladder was markedly distended w/plan as above. There were no retroperitoneal causes for swelling. There was no liver pathology. He does not have any pathologically enlarged lymph nodes. Plan to resume furosemide, discontinue metolazone, and start spironolactone. Continue to monitor potassium. He will need close outpatient follow-up and may also follow-up with Dr. Hoang. (7) Type 2 diabetes mellitus with hyperglycemia: Qualifiers: Diabetes mellitus terminal make up operator insulin use: without terminal make up operator use Qualified Code(s): E11.65 - Type 2 diabetes mellitus with hyperglycemia Code(s): E11.65 - Type 2 diabetes mellitus with hyperglycemia Status: Acute Assessment and Plan:
[2020-08-04 20:47] LABS: Glucose Point of Care 158 (65-105)
[2020-08-04] MEDS: PRAMIPEXOLE 1 MG TABLET PO (21:16)
[2020-08-04 21:58] LABS: Glucose Point of Care 205 (65-105)
[2020-08-05 05:37] LABS: Hematocrit 32.9 % (42.0-52.0); Hemoglobin 10.4 g/dL (14.0-18.0); Mean Corpuscular HGB Conc 31.6 g/dl (32-36); Mean Corpuscular Hemoglobin 29.8 pg (26-34); Mean Corpuscular Volume 94.3 fl (80-100); Mean Platelet Volume 9.7 fl (7.4-10.4); Platelet Count Result 250 k/mm3 (150-375); Red Blood Count 3.49 M/mm3 (4.6-6.20); Red Cell Distribution Width 13.7 % (11.5-14.5); White Blood Count 6.8 K/mm3 (4.5-10.0)
[2020-08-05 05:46] LABS: INR 2.6; Prothrombin Time 28.6 Seconds (11.1-14.7)
[2020-08-05 05:55] LABS: Anion Gap 3 mmol/L (8-16); Blood Urea Nitrogen 14 mg/dL (9-20); Calcium 8.3 mg/dL (8.4-10.2); Carbon Dioxide 37 mmol/L (22-30); Chloride 101 mmol/L (98-107); Estimated CRCL calculation 72 ml/min; Estimated Glomerular Filt Rate > 60; Glucose 126 mg/dL (75-110); Magnesium 2.2 mg/dL (1.6-2.3); Potassium 3.4 mmol/L (3.4-5.0); Sodium 141 mmol/L (137-145)
[2020-08-05 06:00] VITALS: BP 136/80; PULSE 86; RESP 18; TEMP 36.1; O2SAT 97
[2020-08-05 07:48] LABS: Glucose Point of Care 155 (65-105)
[2020-08-05] MEDS: FINASTERIDE 5 MG TABLET PO (09:34)
[2020-08-05] MEDS: SACCHAROMYCES BOULARDII 250 MG CAPSULE PO (09:34)
[2020-08-05] MEDS: TAMSULOSIN HCL 0.4 MG CAPSULE PO (09:34)
[2020-08-05] MEDS: SPIRONOLACTONE 25 MG TABLET PO (09:35)
[2020-08-05] MEDS: FUROSEMIDE 40 MG TABLET PO (09:35)
[2020-08-05] MEDS: allopurinoL 100 MG TABLET 200 MG PO (09:35)
[2020-08-05 09:54] VITALS: O2SAT 92
--- NOTE | 2020-08-05 10:38 | WPDURCON ---
Assessment and Plan Assessment and plan (1) Urinary retention due to benign prostatic hyperplasia: Code(s): N40.1 - Benign prostatic hyperplasia with lower urinary tract symptoms; R33.8 - Other retention of urine Status: Acute Assessment and Plan: We discussed possibly doubling his Tamsulosin, however, he currently has hypotension, therefore we cannot have him take it BID d/t potential for worsening hypotension. He will continue Flomax and Finasteride and then keep his hayes in fo 7-10 days then follow up in our office for a voiding trial. No further evaluation necessary. Urology Consult Note HPI Date Seen: 08/05/20 Requesting Physician: Evangelina Cornejo PA-C Primary Care Provider: Alissa Lopez MD Consult Narrative Narrative: En Wilson is a 80 year old male who presented to the ER on 07/31/2020 with LLE edema, pain and redness. He was diagnosed with cellulitis and remains here for treatment. He was having difficulty emptying his bladder, having urgency, frequency and nocturia x 1-2x/night. He denies fever, chills, dysuria or gross hematuria. He is a patient of Dr. Henry and has been on Flomax and Finasteride for quite some time without any complaints. He was found to have 600-900cc on his bladder scan PVR. His CT abdomen/pelvis also showed a distended bladder and mild BPH on 08/04/2020, therefore a catheter was placed. His WBC is normal 6.8, creatinine is 0.90, no UA was done, but patient doesn't appear to have symptoms of a UTI or concern for one. Review of Systems Cardiovascular: Cardiovascular: Denies chest pain Respiratory: Respiratory: Reports no additional respiratory complaints Gastrointestinal: Gastrointestinal: Denies abdominal pain, Denies nausea and Denies vomiting Genitourinary: Genitourinary: Denies hematuria, Denies genital pain, Denies dysuria, Denies flank pain, Reports urinary frequency, Reports urinary hesitancy and Reports urinary urgency [facility] Past Medical History Medical History A-fib BPH (benign prostatic hyperplasia) CKD (chronic kidney disease) stage 3, GFR 30-59 ml/min Diabetes Hypertension Osteoarthritis Peripheral neuropathy Right hip pain Surgical History Surgical History History of arthroplasty of left shoulder Family History Family History Father Family history of malignant neoplasm of stomach Social History Social History Social History: uses cane, still drives Smoking status: Former smoker Alcohol intake: never Substance use: never Occupation/Education: retired Gender identity (if verbalized by the patient): Male Spiritual care concerns: No Meds Home Medications and Allergies Home Medications Medication Instructions Recorded Confirmed Type finasteride 5 mg tablet 5 mg PO DAILY 08/21/19 07/31/20 History furosemide 40 mg tablet 40 mg PO BID 08/21/19 07/31/20 History pramipexole 1 mg tablet 1 mg PO .QHS #90 tablet 10/05/19 07/31/20 Rx Lactobacills gasseri-Bifidobac 1 cap PO DAILY 03/14/20 07/31/20 History bifidum,longum 1.5 billion cell capsule metolazone 5 mg tablet 5 mg PO DAILY 03/14/20 07/31/20 History tamsulosin 0.4 mg capsule 0.4 mg PO DAILY 03/14/20 07/31/20 History warfarin 4 mg tablet 4 mg PO DAILY tablet 03/14/20 07/31/20 History metformin 500 mg tablet,extended 1,500 mg PO DAILY #270 tablet 03/21/20 07/31/20 Rx release 24 hr linaclotide 290 mcg capsule 290 mcg PO DAILY #90 cap 04/22/20 07/31/20 Rx allopurinol 100 mg tablet 200 mg PO DAILY #180 tablet 05/07/20 07/31/20 Rx diltiazem HCl 240 mg 240 mg PO DAILY 07/17/20 07/31/20 History capsule,extended release 24 hr potassium chloride 20 mEq 60 meq PO TID tablet 07/17/20 08/01/20 History tablet,extended release warfarin 3 mg t
[2020-08-05 11:50] LABS: Glucose Point of Care 164 (65-105)
--- NOTE | 2020-08-05 14:24 | PM.DS ---
DS: Admitting Diagnosis Admitting Diagnosis Admitting Diagnosis: cellulitis LLE DS: Discharge Diagnosis Discharge Diagnosis (1) Cellulitis of left leg: Code(s): L03.116 - Cellulitis of left lower limb Status: Acute Assessment and Plan: Discharge Summary (Date of service 08/15/20): Mr. Wilson is a 80 y.o. male with PMH significant for atrial fibrillation on warfarin, CKD stage III, hypertension, diabetes, and BPH who presented to the emergency department 07/31/20 for the evaluation of left lower extremity erythema, swelling, and pain for 3 days. He had a callus removed from the medial aspect of the 1st MTP 3 weeks ago by his trauma registrar. SIRS was met at admission with fever, tachycardia, and leukocytosis. Lactic acid was elevated at 3.1 and normalized after IV fluids. Additional workup in the emergency department included CBC with normal WBC, normocytic anemia (Hb 10.4, Hct 32.9), INR 2.2, BMP with potassium 3.2, chloride 96, CO2 31, and sodium 136, Cr 1.3, CRP 13.6. Plain films showed polyarticular arthritis and severe hallux valgus. He was admitted to the hospitalist service for IV antibiotics. He was treated with IV cefazolin. MRI was performed and showed no evidence of abscess, septic arthritis, or osteomyelitis. Venous doppler US was performed and showed no evidence of DVT. Diuretics were held initially given concerns regarding sepsis/low blood pressure and resumed once this stabilized. He had excellent urine output. He was noted to have 600-900cc residual urine on bladder scan after voiding so hayes catheter was placed and he was seen by urology. He follows with Dr. Yo and outpatient follow-up for hayes removal was recommended in 7-10 days with further workup as necessary outpatient. He required high doses of potassium (180mEq PO daily) and potassium was still not sufficient so nephrology was consulted. Additional workup was performed by nephrology and he was advised to follow-up with Dr. Hoang for the results which were not yet available at discharge. CT abd/pelvis was performed to r/o retroperitoneal causes for edema and showed mild pulmonary edema, small pleural effusions, 4mm liver cyst, 1.4cm renal cyst, and hemangioma of T9 vertebral body. His potassium normalized after his diuretics were held which indicated that his hypokalemia was most likely diuretic induced. He was fluid positive so his lasix was resumed and spironolactone was initiated in place of metolazone. He was advised to stop taking PO potassium and repeat labs 08/08/20 to ensure potassium was stable. He was discharged on cedfinir to complete his treatment for cellulitis. He was advised to follow-up with his PCP, urology, and Dr. Hoang outpatient. All questions were answered and he was discharged in hemodynamically stable condition on 08/05/20. (2) Sepsis: Qualifiers: Sepsis acute organ dysfunction status: unspecified Sepsis type: sepsis due to unspecified organism Qualified Code(s): A41.9 - Sepsis, unspecified organism Code(s): A41.9 - Sepsis, unspecified organism Status: Acute Assessment and Plan: Supported by fever 102.5F, tachycardia, and leukocytosis at admission. Secondary to cellulitis of the left lower extremity. Lactic acid was elevated at 3.1 initially and normalized to 1.3 after he received judicious IV fluid hydration. IV fluids were discontinued as he is on diuretic therapy at home for underlying peripheral edema and we do not want to precipitate volume overload. Blood cultures were obtained final cultures showed no growth. (3) Urinary retention due to benign prostatic hyperplasia: Code(s): N40.1 - Benign prostatic hyperplasia with lower urinary tract symptoms; R33.8 - Other retention of urine Status: Acute Assessment and Plan: He has a hx of BPH and is on finasteride and tamsulosin. CT showed markedly distended bladder. Bladder scan showed 600-900cc residual after voiding. The patient was agreea
--- NOTE | 2020-08-05 15:00 | PC.NURSE ---
Patient educated and returned demonstration in regards to hayes catheter care. Verbalized understanding and sent with supplies.
[2020-08-07 07:44] LABS: Metanephrine, Free 27 pg/mL (<=57); Normetanephrine, Free 119 pg/mL (<=148); Total, Free (MN + NMN) 146 pg/mL (<=205)
[2020-08-07 07:44] LABS: Kappa\\Lambda Light Chains 0.83 (0.26-1.65); Lambda Light Chain 31.1 mg/L (5.7-26.3)
[2020-08-09 13:21] LABS: Renin 2.06 ng/mL/h (0.25-5.82)
== END 2020-08-05 15:55 | disposition home or self-care (01) | DRG 872 ==
LOC: ANHED 15:40 → ANH2MED 19:52
PROVIDERS: Internal Medicine Nephrology; Physician Assistant; Student in an Organized Health Care Education/Training Program; Admitting Provider Hospitalist; Emergency Provider Emergency Medicine; PCP Family Medicine; Visit Provider Physician Assistant
DX: A41.9 Sepsis, unspecified organism (principal); L03.116 Cellulitis of left lower limb; I13.0 Hypertensive heart and chronic kidney disease with heart failure and stage 1 through stage 4 chronic kidney disease, or unspecified chronic kidney disease; I50.32 Chronic diastolic (congestive) heart failure; I48.91 Unspecified atrial fibrillation; E11.22 Type 2 diabetes mellitus with diabetic chronic kidney disease; N18.30 Chronic kidney disease, stage 3 unspecified; Z79.01 Long term (current) use of anticoagulants; E87.6 Hypokalemia; N40.1 Benign prostatic hyperplasia with lower urinary tract symptoms; R33.8 Other retention of urine
CPT/HCPCS: 36415; 73630; 73720; 74177; 80048; 80053; 80069; 81050; 82088; 82530; 82533; 82550; 82570; 83605; 83735; 83835; 83883; 84132; 84133; 84244; 84300; 85025; 85027; 85610; 85730; 86038; 86140; 86160; 86334; 86335; 87040; 93005; 93970; 96361; 96365; 96367; 96375; 99285; A9270; A9577; C8929; J0131; J0690; J1885; J3370; J3480; J7030; J7050; Q9957; Q9967

== ENCOUNTER 2020-08-08 12:33 | Outpatient (CLI) | payer MEDICARE, SELFPAY ==
[2020-08-08 13:13] LABS: INR 2.5; Prothrombin Time 27.5 Seconds (11.1-14.7)
[2020-08-08 20:43] LABS: Anion Gap 4 mmol/L (8-16); Blood Urea Nitrogen 22 mg/dL (9-20); Calcium 9.2 mg/dL (8.4-10.2); Carbon Dioxide 34 mmol/L (22-30); Chloride 103 mmol/L (98-107); Estimated Glomerular Filt Rate > 60; Glucose 171 mg/dL (75-110); Potassium 3.4 mmol/L (3.4-5.0); Sodium 141 mmol/L (137-145)
== END 2020-08-08 12:34 | disposition home or self-care (01) ==
PROVIDERS: PCP Family Medicine; Visit Provider Physician Assistant
DX: I48.91 Unspecified atrial fibrillation (principal); E87.6 Hypokalemia
CPT/HCPCS: 36415; 80048; 85610

== ENCOUNTER 2020-08-19 11:19 | Outpatient (CLI) | payer MEDICARE, SELFPAY ==
[2020-08-19 12:10] LABS: Anion Gap 4 mmol/L (8-16); Blood Urea Nitrogen 23 mg/dL (9-20); Calcium 9.1 mg/dL (8.4-10.2); Carbon Dioxide 34 mmol/L (22-30); Chloride 102 mmol/L (98-107); Estimated Glomerular Filt Rate > 60; Glucose 143 mg/dL (75-110); Potassium 3.7 mmol/L (3.4-5.0); Sodium 140 mmol/L (137-145)
== END 2020-08-19 11:20 | disposition home or self-care (01) ==
LOC: ANHLAB 11:21
PROVIDERS: PCP Family Medicine; Visit Provider Physician Assistant
DX: E87.6 Hypokalemia (principal); E11.65 Type 2 diabetes mellitus with hyperglycemia
CPT/HCPCS: 36415; 80048

== ENCOUNTER 2020-09-13 10:46 | Observation (INO) | payer MEDICARE, SELFPAY ==
[2020-09-13] VITALS (25 sets, daily range): BP systolic 98–117; BP diastolic 48–75; PULSE 62–125; RESP 15–22; TEMP 36–36.8; O2SAT 91–100; BMI 30.9
--- NOTE | 2020-09-13 10:56 | ED.RECABL ---
HPI - Recheck/Abnormal Lab/Rx General Chief Complaint: Recheck/Abnormal Lab/Rx Stated Complaint: high blood sugar Time Seen by Provider: 09/13/20 10:56 Source: patient Mode of arrival: ambulatory Limitations: no limitations History of Present Illness HPI narrative: Patient is a 80-year-old male who presents for evaluation of hyperglycemia. Patient reportedly with elevated blood glucose levels despite taking his Metformin as prescribed. Patient reportedly with glucose levels greater than 600, referred to this ER by his primary care physician. Patient does report polyuria, polydipsia. He reports some general malaise without specific pain. He denies headache, chest pain, cough, shortness of breath. No abdominal pain. No dysuria or hematuria. No nausea or vomiting. Related Data Home Medications Medication Instructions Recorded Confirmed finasteride 5 mg tablet 5 mg PO DAILY 08/21/19 09/13/20 furosemide 40 mg tablet 40 mg PO BID 08/21/19 09/13/20 Lactobacills gasseri-Bifidobac 1 cap PO DAILY 03/14/20 09/13/20 bifidum,longum 1.5 billion cell capsule tamsulosin 0.4 mg capsule 0.4 mg PO DAILY 03/14/20 09/13/20 warfarin 4 mg tablet 4 mg PO .EVERY OTHER DAY tablet 03/14/20 09/13/20 diltiazem HCl 240 mg 240 mg PO DAILY 07/17/20 09/13/20 capsule,extended release 24 hr allopurinol 200 mg PO DAILY 09/13/20 09/13/20 metformin 1,500 mg PO HS 09/13/20 09/13/20 spironolactone 25 mg PO QAM 09/13/20 09/13/20 Allergies Allergy/AdvReac Type Severity Reaction Status Date / Time No Known Allergies Allergy Verified 09/13/20 15:09 Review of Systems Review of Systems: Narrative: CONSTITUTIONAL: Denies fever, chills, or sweats. EYES: Denies visual changes, redness, or discharge. ENT: Denies rhinorrhea, congestion, sore throat, or otalgia. CARDIOVASCULAR: Denies chest pain, palpitations, or edema. RESPIRATORY: Denies cough or dyspnea. GASTROINTESTINAL: Denies abdominal pain, nausea, vomiting, or diarrhea. GENITOURINARY: Denies dysuria or hematuria. Reports polyuria and polyuria. SKIN: Denies rash or itching. MUSCULOSKELETAL: Denies back pain, joint pain, reports generalized malaise NEUROLOGIC: Denies headache, numbness, or weakness. COUNTS INCLUDE 234 BEDS AT THE [facility] Past Medical History Medical History A-fib BPH (benign prostatic hyperplasia) CKD (chronic kidney disease) stage 3, GFR 30-59 ml/min Diabetes Hypertension Osteoarthritis Peripheral neuropathy Right hip pain Surgical History Surgical History History of arthroplasty of left shoulder Family History Family History Father Family history of malignant neoplasm of stomach Social History Social History Social History: uses cane, still drives Smoking packs per day: 1 Smoking cigarettes per day: 20.0 Smoking status: Former smoker Tobacco type: cigarettes Alcohol intake: never Substance use: never Gender identity (if verbalized by the patient): Male Spiritual care concerns: No Exam Narrative: Exam Narrative: GENERAL: Awake, alert, conversant HEAD: Normocephalic, atraumatic. EYES: PERRLA and EOMI. ENT: Nares clear, no rhinorrhea or epistaxis. Mucous membranes moist. NECK: Supple. CHEST: No respiratory distress, breathing even and non labored HEART: Regular rate, sinus rhythm ABDOMEN:Non distended, non tender EXTREMITIES: Normal range of motion. No edema. SKIN: Warm, dry, no rash. NEURO:No focal deficits. Alert and oriented x3 Course Vital Signs Vital signs: Vital Signs Respiratory Rate 19 09/13/20 10:56 Temperature 36.8 C 09/13/20 15:08 Pulse Rate 62 09/13/20 15:08 Respiratory Rate 16 09/13/20 15:08 Blood Pressure 98/59 L 09/13/20 15:08 Pulse Oximetry 98 09/13/20 15:08 MDM - Recheck/Abnormal Lab/Rx MDM Narrat
[2020-09-13] MEDS: SODIUM CHLORIDE 0.9% IV 1,000 ML 999 ML IV CONT ×2 (11:17→16:07)
[2020-09-13 11:19] LABS: Alveolar/Arterial O2 Gradient 30.8 mmHg; Base Excess ABG -2.3 mEq/l (+/-2.0); Device ROOM AIR; Fractional Inspired Oxygen 21 %; HCO3 ABG 22.2 mEq/l (22.0-26.0); Methemoglobin ABG 0.3 %THb (0-1.5); Modified Allen's Test Pass; Oxygen Content ABG 15.9 %vol (16.0-22.0); Oxygen Saturation ABG 94.8 % (95.0-100.0); PCO2 ABG 37.6 mmHg (35.0-45.0); PO2 ABG 73.9 mmHg (80.0-100.0); PO2 FiO2 Ratio Arterial Blood 3.52 %; Reduced Hemoglobin 5.7 %THb (0-5.0); Site Drawn RIGHT RADIAL; Total Hemoglobin 12.1 g/dL (12.0-18.0)
--- NOTE | 2020-09-13 11:20 | PC.NURSE ---
received report from Megan MORAN. patient just arrived to ED with c/o elevated blood sugar. see notes. states his PCP office called him to come to ED with elevated glucose on his lab work. FSBS at home 474. assessments documented. patient aware of current treatment plan. SL inserted and labs drawn. FSBS here on arrival >600. patient had EKG. now on resident associate. urinal at bedside.
[2020-09-13 11:26] LABS: Basophils Percent Auto 0.6 % (0.2-1.2); Eosinophils Absolute Auto 0.1 K/mm3 (0-0.3); Eosinophils Percent Auto 1.8 % (0-4.4); Hematocrit 35.9 % (42.0-52.0); Hemoglobin 11.3 g/dL (14.0-18.0); Immature Granulocyte Absolute 0.02 K/mm3 (0.00-0.031); Immature Granulocyte Percent A 0.4 % (0-0.5); Lymphocytes Percent Auto 15.7 % (18.3-44.2); Mean Corpuscular HGB Conc 31.5 g/dl (32-36); Mean Corpuscular Hemoglobin 27.9 pg (26-34); Mean Corpuscular Volume 88.6 fl (80-100); Mean Platelet Volume 9.8 fl (7.4-10.4); Monocytes Absolute Auto 0.5 K/mm3 (0.1-0.6); Monocytes Percent Auto 9.6 % (2.6-8.5); Neutrophils Absolute Auto 3.7 K/mm3 (1.3-6.7); Neutrophils Percent Auto 71.9 % (45.5-73.1); Platelet Count Result 318 k/mm3 (150-375); Red Blood Count 4.05 M/mm3 (4.6-6.20); Red Cell Distribution Width 13.7 % (11.5-14.5); White Blood Count 5.1 K/mm3 (4.5-10.0)
[2020-09-13 11:50] LABS: Beta-Hydroxybutyrate/Acetoacetate 0.82 mmol/L (0.02-0.27)
[2020-09-13 11:55] LABS: Alanine Aminotransferase 18 U/L (4-50); Albumin Level 3.9 g/dL (3.5-5.1); Alkaline Phosphatase 217 U/L (38-126); Anion Gap 10 mmol/L (8-16); Aspartate Amino Transferase 20 U/L (17-59); Bilirubin,Total 0.7 mg/dL (0.2-1.3); Blood Urea Nitrogen 38 mg/dL (9-20); Calcium 9.3 mg/dL (8.4-10.2); Carbon Dioxide 27 mmol/L (22-30); Chloride 89 mmol/L (98-107); Estimated CRCL calculation 54 ml/min; Estimated Glomerular Filt Rate 58; Glucose 779 mg/dL (75-110); Phosphorus 4.1 mg/dL (2.5-4.5); Potassium 4.4 mmol/L (3.4-5.0); Sodium 126 mmol/L (137-145)
[2020-09-13 12:23] LABS: Add Urine Microscopic? YES; Appearance Urine Cloudy (Clear); Bacteria Urine Trace /hpf; Bilirubin Urine Negative (Negative); Blood Urine 1+ (Negative); Color Urine Straw (Yellow); Glucose Urine UA 3+ mg/dL (Negative); Ketones Urine Negative (Negative); Leukocyte Esterase Ur 3+ LEU/UL (Negative); Nitrate Urine Negative (Negative); Protein Urine Negative (Negative); Specific Grav Ur 1.014 (1.001-1.035); Urobilinogen Urine Negative mg/dL (<2.0); WBC Urine >75 /hpf
[2020-09-13] MEDS: INSULIN HUMAN REGULAR (*BKC) 100 UNITS/ML 10 UNITS SUB-Q (12:47)
[2020-09-13 12:48] LABS: Glucose Point of Care > 500 (65-105)
--- NOTE | 2020-09-13 12:49 | PC.NURSE ---
insulin given as ordered. resting on stretcher. denies needs. ice chips given until patient has order. alert. oriented.
--- NOTE | 2020-09-13 13:07 | PC.NURSE ---
resting on stretcher. alert. oriented. ice water given per provider. waiting for further orders.
--- NOTE | 2020-09-13 13:10 | PC.NURSE ---
repeat glucose drawn. results pending. patient aware.
[2020-09-13 13:35] LABS: Glucose 719 mg/dL (75-110)
--- NOTE | 2020-09-13 13:56 | PC.NURSE ---
planning for admission. patient aware. waiting for bed assignment upstairs.
--- NOTE | 2020-09-13 14:01 | PC.NURSE ---
FSBS now 567. patient aware of admission. ta
[2020-09-13 14:03] LABS: Glucose Point of Care > 500 (65-105)
--- NOTE | 2020-09-13 14:10 | PC.NURSE ---
SBAR faxed to IMU.
--- NOTE | 2020-09-13 14:30 | PC.NURSE ---
report given to Alpa MORAN on IMU. [facility]
[2020-09-13 15:24] LABS: Glucose Point of Care 500 (65-105)
[2020-09-13] MEDS: INSULIN ASPART (*BKC) 100 UNITS/ML 10 UNITS SUB-Q (16:03)
--- NOTE | 2020-09-13 17:14 | PM.IMHP ---
H&P: HPI History of Present Illness Date/Time: 09/13/20 17:14 Chief Complaint: polyurea Narrative: En Wilson is a 80 year old male who is a diabetic type 2 on oral hypoglycemic. Typically his blood sugars are under control with metformin. However today the patient had polydipsia and polyuria. He does have a history of BPH and is on finasteride and tamsulosin. Patient was admitted here last month due to urinary retention. He no longer has a Andres catheter, and is urinating frequently. Patient's blood sugar was noted to be over 600 at home. His sodium is 126 and his blood sugar was noted to be 779 upon arrival to the emergency room. His bhob is 0.82. The patient was found to have urinary tract infection. The patient stated that he has degenerative disc disease and has chronic back pain and was not really having any urinary burning or back pain other than his usual back pain. Patient was started on Rocephin for his urinary tract infection. Anion gap was normal. EKG atrial fibrillation. Patient is being admitted to observation status date of service 09/13/2020 Review of Systems Review of Systems: All systems reviewed & are unremarkable except as noted in HPI and below Constitutional: Constitutional: Reports as per HPI and Reports no additional constitutional complaints Eyes: Eyes: Reports as per HPI and Reports no additional eye complaints ENT: Reports system reviewed and no additional complaints, except as documented and Reports Normal hearing present Cardiovascular: Cardiovascular: Reports no additional cardiovascular complaints Respiratory: Respiratory: Reports no additional respiratory complaints and Reports no additional respiratory complaints Gastrointestinal: Gastrointestinal: Reports as per HPI and Reports no additional gastrointestinal complaints Musculoskeletal: Musculoskeletal: Reports no additional musculoskeletal complaints Integumentary/Breasts: Skin/Breast: Reports system reviewed and no additional complaints, except as docu and Reports as per HPI Neurologic: Reports system reviewed and no additional complaints, except as documented, Reports as per HPI and Reports Normal hearing present Psychiatric: Psychiatric: Reports no additional psychiatric complaints and Reports as per HPI Endocrine: Endocrine: Reports no additional endocrine complaints Hematologic/Lymphatic: Hematologic/Lymphatic: Reports no additional hematologic/lymphatic complaints Allergic/Immunologic: Allergic/Immunologic: Reports no additional allergic/immunologic complaints [facility] Past Medical History Medical History (Updated 09/13/20 @ 17:21 by Eugenia Deleon NP) A-fib BPH (benign prostatic hyperplasia) CKD (chronic kidney disease) stage 3, GFR 30-59 ml/min Degenerative disc disease Diabetes Hypertension Osteoarthritis Peripheral neuropathy Right hip pain Surgical History Surgical History (Updated 09/13/20 @ 17:31 by Eugenia Deleon NP) H/O cataract extraction History of arthroplasty of left shoulder History of total hip replacement Right side S/p bilateral shoulder joint replacement Family History Family History (Updated 09/13/20 @ 17:22 by Eugenia Deleon NP) Father Family history of malignant neoplasm of stomach at the age of 59 Mother Cancer Social History Social History (Updated 09/13/20 @ 17:23 by Eugenia Deleon NP) Social History: uses cane, still drives. He lives with his in a duplex. His is the durable power cellophane bath mixer for healthcare. The patient is a full code. He has 2 children. He is retired from [employer]. The patient smoked a pack a cigarettes a day and quit 52 years ago. No alcohol or illicit drugs. Smoking packs per day: 1 Smoking cigarettes per day: 20.0 Smoking status: Former smoker Tobacco type: cigarettes Alcohol intake: never Substance use: never Gender identity (if verbalized by the patient): Male Spiritual care concerns: No
[2020-09-13 19:08] LABS: Anion Gap 10 mmol/L (8-16); Blood Urea Nitrogen 31 mg/dL (9-20); Calcium 9.1 mg/dL (8.4-10.2); Carbon Dioxide 28 mmol/L (22-30); Chloride 97 mmol/L (98-107); Estimated CRCL calculation 60 ml/min; Estimated Glomerular Filt Rate > 60; Glucose 366 mg/dL (75-110); Potassium 3.8 mmol/L (3.4-5.0); Sodium 135 mmol/L (137-145)
[2020-09-13 19:11] LABS: Hemoglobin A1C 7.9 % (<5.7)
[2020-09-13 19:13] LABS: INR 3.5; Prothrombin Time 35.3 Seconds (11.1-14.7)
[2020-09-13] MEDS: allopurinoL 100 MG TABLET 200 MG PO (20:29)
[2020-09-13] MEDS: metFORMIN HCL XR 500 MG TAB.SR.24H 1500 MG PO (20:29)
[2020-09-13] MEDS: FUROSEMIDE 40 MG TABLET PO (20:29)
[2020-09-13] MEDS: TAMSULOSIN HCL 0.4 MG CAPSULE PO ×2 (20:29→20:30)
[2020-09-13] MEDS: FINASTERIDE 5 MG TABLET PO (20:30)
[2020-09-13] MEDS: PRAMIPEXOLE 1 MG TABLET PO (20:30)
[2020-09-13 21:21] LABS: Glucose Point of Care 284 (65-105)
[2020-09-14] VITALS (15 sets, daily range): BP systolic 99–114; BP diastolic 56–65; PULSE 77–127; RESP 18–22; TEMP 36.1–36.8; O2SAT 97–100
[2020-09-14] MEDS: HYDROcodone/acetaminophen (*CRX) 7.5-325 MG TABLET 1 TAB PO ×2 (04:25→21:53)
[2020-09-14 05:33] LABS: INR 3.3
[2020-09-14 05:57] LABS: Alanine Aminotransferase 15 U/L (4-50); Albumin Level 3.8 g/dL (3.5-5.1); Alkaline Phosphatase 196 U/L (38-126); Anion Gap 9 mmol/L (8-16); Aspartate Amino Transferase 18 U/L (17-59); Bilirubin,Total 0.7 mg/dL (0.2-1.3); Blood Urea Nitrogen 25 mg/dL (9-20); Calcium 9.5 mg/dL (8.4-10.2); Carbon Dioxide 28 mmol/L (22-30); Chloride 99 mmol/L (98-107); Estimated CRCL calculation 60 ml/min; Estimated Glomerular Filt Rate > 60; Glucose 306 mg/dL (75-110); Lactate Dehydrogenase 319 U/L (313-618); Magnesium 1.8 mg/dL (1.6-2.3); Potassium 3.7 mmol/L (3.4-5.0); Sodium 136 mmol/L (137-145)
[2020-09-14 09:17] LABS: Glucose Point of Care > 500 (65-105)
[2020-09-14] MEDS: INSULIN ASPART (*BKC) 100 UNITS/ML 12 UNITS SUB-Q ×2 (09:29→12:07)
[2020-09-14] MEDS: INSULIN GLARGINE (*BKC) 100 UNITS/ML 30 UNITS SUB-Q (09:33)
[2020-09-14] MEDS: glyBURIDE 2.5 MG TABLET PO (09:34)
[2020-09-14] MEDS: ACIDOPHILUS/BULGARICUS CHEWABLE TABLET 1 TABLET PO (09:35)
[2020-09-14] MEDS: FUROSEMIDE 40 MG TABLET PO ×2 (09:35→17:04)
[2020-09-14] MEDS: SPIRONOLACTONE 25 MG TABLET 50 MG PO (11:05)
[2020-09-14 13:35] LABS: Glucose Point of Care 452 (65-105)
--- NOTE | 2020-09-14 13:45 | PM.IMPN ---
Progress Note: A&P Assessment and Plan (1) Acute hyperglycemia: Code(s): R73.9 - Hyperglycemia, unspecified Status: Acute Assessment and Plan: Started on Lantus insulin 30 units. Novolog ISS 1800 Calorie ADA carb consistent diet. (2) Acute UTI: Code(s): N39.0 - Urinary tract infection, site not specified Status: Acute Assessment and Plan: On Rocephin Awaiting ua cx Deescalate antibiotics as needed (3) Peripheral edema: Code(s): R60.9 - Edema, unspecified Status: Acute Assessment and Plan: Chronic Zachary wraps as needed (4) Obstructive sleep apnea on CPAP: Code(s): G47.33 - Obstructive sleep apnea (adult) (pediatric); Z99.89 - Dependence on other enabling machines and devices Status: Acute Assessment and Plan: Continue CPAP at night time. (5) Diastolic heart failure: Qualifiers: Heart failure chronicity: chronic Qualified Code(s): I50.32 - Chronic diastolic (congestive) heart failure Code(s): I50.30 - Unspecified diastolic (congestive) heart failure Status: Acute Assessment and Plan: Does not appear to be exacerbated. Strict I/O's (6) Primary hypertension: Code(s): I10 - Essential (primary) hypertension Status: Acute Assessment and Plan: Continue home meds Continue to monitor (7) Paroxysmal atrial fibrillation: Code(s): I48.0 - Paroxysmal atrial fibrillation Status: Acute Assessment and Plan: Continue to monitor Rate controlled. Subjective Date/time seen: 09/14/20 13:45 I feel fine. Review of Systems Review of Systems: Narrative: states that he doesn't know what is wrong with him, that he has a urinary tract infection Constitutional: Comments: no fevers, no Eyes: Comments: No vision changes. ENT: Comments: no ear ache, no throat pain, no nasal discharge. Cardiovascular: Comments: no chest pain. Respiratory: Comments: no sob, no cough, no sputum production. Gastrointestinal: Comments: no n/v/abdominal pain. Genitourinary: Comments: no pain or burning with urination. Musculoskeletal: Comments: no muscle aches or pain no swollen joints. Integumentary/Breasts: Comments: no skin changes. Neurologic: Comments: no sensory motor deficit. Exam Narrative: Exam Narrative: Sitting in bed. Const: General: cooperative, healthy appearing, comfortable, no acute distress, alert, awake and Physically active Nutritional Appearance: average body habitus Orientation/consciousness: patient oriented x3 Limitations: no limitations HENMT: Head: normal to inspection and normocephalic General nose exam: Normal external nose present Eyes: General: appearance normal, both eyes and all related structures Pupils: Equal, round and reactive pupils present EOM: EOMs intact bilaterally Neck: Neck: normal visual inspection, no lymphadenopathy and no JVD Resp: Effort & Inspection: normal respiratory effort Auscultation: clear to auscultation bilaterally Cardio: Rate: regular rate Rhythm: regular rhythm GI: Inspection: normal to inspection GI Palp: Yes Soft to palpation and Yes No hepatosplenomegaly present Skin: General skin exam: dry skin (b/l le) and erythema (b/l le) Neuro: General: patient oriented x3 and CN's II-XI intact bilaterally Cranial nerves: Yes CN's II-XII intact bilaterally and Yes Equal, round and reactive pupils present Cognition (Neuro): normal cognition Speech: normal speech Gait exam (Neuro): Normal gait present Motor exam (neuro): 5/5 motor strength present throughout Extrem: General: other (B/L LE chronic skin changes, lymphedema.) Objective Data Vital Signs Vital Signs: Vital Signs - 24 hr 09/13/20 15:08 09/13/20 16:00 09/13/20 18:00 Temperature 98.2 F Pulse Rate 62 84 84 Respiratory Rate 16 Blood Pressure 98/59 L Pulse Oximetry 98 09/13/20 19:36 09/13/20 20:00 09/13/20 22:00 Temperature 96.8 F L Pulse Rate
--- NOTE | 2020-09-14 14:19 | PHAR ---
PT'S HOME MED LINZESS 145 MCG CAPSULE VERIFIED BY PHARMACY
[2020-09-14] MEDS: PRAMIPEXOLE 1 MG TABLET PO (17:04)
[2020-09-14] MEDS: allopurinoL 100 MG TABLET 200 MG PO (17:04)
[2020-09-14] MEDS: metFORMIN HCL XR 500 MG TAB.SR.24H 1500 MG PO (17:05)
[2020-09-14 17:10] LABS: Glucose Point of Care 170 (65-105)
[2020-09-14] MEDS: WARFARIN (*PBKC) 3 MG TABLET PO (17:10)
[2020-09-14] MEDS: TAMSULOSIN HCL 0.4 MG CAPSULE PO (20:27)
[2020-09-14] MEDS: FINASTERIDE 5 MG TABLET PO (20:28)
[2020-09-14 21:00] LABS: Glucose Point of Care 246 (65-105)
[2020-09-15] VITALS (12 sets, daily range): BP systolic 102–119; BP diastolic 65–71; PULSE 77–110; RESP 16–22; TEMP 36–36.6; O2SAT 96–99
[2020-09-15 04:10] LABS: Prothrombin Time 31.8 Seconds (11.1-14.7)
[2020-09-15 04:11] LABS: Anion Gap 6 mmol/L (8-16); Blood Urea Nitrogen 24 mg/dL (9-20); Calcium 9.2 mg/dL (8.4-10.2); Carbon Dioxide 32 mmol/L (22-30); Chloride 99 mmol/L (98-107); Estimated CRCL calculation 60 ml/min; Estimated Glomerular Filt Rate > 60; Glucose 230 mg/dL (75-110); Magnesium 1.9 mg/dL (1.6-2.3); Potassium 3.7 mmol/L (3.4-5.0); Sodium 137 mmol/L (137-145)
[2020-09-15 07:23] LABS: Glucose Point of Care 243 (65-105)
[2020-09-15] MEDS: FUROSEMIDE 40 MG TABLET PO ×2 (08:45→16:37)
[2020-09-15] MEDS: glyBURIDE 2.5 MG TABLET PO (08:45)
[2020-09-15] MEDS: SPIRONOLACTONE 25 MG TABLET 50 MG PO (08:45)
[2020-09-15] MEDS: ACIDOPHILUS/BULGARICUS CHEWABLE TABLET 1 TABLET PO (08:45)
[2020-09-15] MEDS: INSULIN ASPART (*BKC) 100 UNITS/ML SUB-Q ×3 (08:46→16:34)
[2020-09-15 12:26] LABS: Glucose Point of Care 335 (65-105)
--- NOTE | 2020-09-15 13:25 | PM.IMPN ---
Progress Note: A&P Assessment and Plan (1) Degenerative disc disease: Status: Chronic Assessment and Plan: Unchanged. (2) Acute hyperglycemia: Code(s): R73.9 - Hyperglycemia, unspecified Status: Acute Assessment and Plan: Improved Continue Lantus Continue ISS ADA diet carb consistent. (3) Acute UTI: Code(s): N39.0 - Urinary tract infection, site not specified Status: Acute Assessment and Plan: On Rocephin Await ua cx Deescalate antibiotics as needed. (4) Acute hyponatremia: Code(s): E87.1 - Hypo-osmolality and hyponatremia Status: Acute Assessment and Plan: Pseudohyponatremia secondary to hyperosmolality secondary to hyperglycemia. (5) Diastolic heart failure: Qualifiers: Heart failure chronicity: chronic Qualified Code(s): I50.32 - Chronic diastolic (congestive) heart failure Code(s): I50.30 - Unspecified diastolic (congestive) heart failure Status: Acute Assessment and Plan: Stable Continue to monitor (6) Primary hypertension: Code(s): I10 - Essential (primary) hypertension Status: Acute Assessment and Plan: Stable Continue to monitor Continue home meds (7) Paroxysmal atrial fibrillation: Code(s): I48.0 - Paroxysmal atrial fibrillation Status: Acute Assessment and Plan: Stable Rate controlled On Diltiazem (8) Bradycardia with 31-40 beats per minute: Code(s): R00.1 - Bradycardia, unspecified Status: Acute Assessment and Plan: One episode Stable Telemetry on Cardiology consult. Subjective Date/time seen: 09/15/20 13:25 Feels well, wants to go home. Review of Systems Review of Systems: Narrative: Had episode of bradycardia while sleeping last night however denies any discomfort at this time. Constitutional: Comments: no fevers, no chills, no rigors. Eyes: Comments: no vision changes. ENT: Comments: no ear ache, no nasal congestion, no throat pain. Cardiovascular: Comments: no chest pain, no palpitations. Respiratory: Comments: no sob, no cough, no sputum production. Gastrointestinal: Comments: no n/v/abdominal pain Genitourinary: Comments: no urinary retention. Musculoskeletal: Comments: no muscle aches or pains. Integumentary/Breasts: Comments: no rashes. Neurologic: Comments: no sensorymotr deficit. Hematologic/Lymphatic: Comments: no LAP Exam Narrative: Exam Narrative: Lying in bed. Const: General: cooperative, comfortable, no acute distress, alert, awake and Physically active Nutritional Appearance: average body habitus Orientation/consciousness: patient oriented x3 Limitations: no limitations HENMT: Head: normal to inspection and normocephalic Ears: hearing grossly normal bilaterally General nose exam: Normal external nose present Face and sinus: normal facial exam Eyes: General: appearance normal, both eyes and all related structures Pupils: Equal, round and reactive pupils present EOM: EOMs intact bilaterally Neck: Neck: no lymphadenopathy, supple and no JVD Resp: Effort & Inspection: normal respiratory effort Auscultation: clear to auscultation bilaterally Cardio: Jugular venous distension: no JVD Rate: regular rate Rhythm: regular rhythm GI: Inspection: normal to inspection GI Palp: Yes Soft to palpation and Yes No hepatosplenomegaly present Skin: General skin exam: no rashes or lesions noted Other: Chronic B/L LE skin changes. Neuro: General: patient oriented x3 and CN's II-XI intact bilaterally Cranial nerves: Yes CN's II-XII intact bilaterally and Yes Equal, round and reactive pupils present Cognition (Neuro): normal cognition Speech: normal speech Motor exam (neuro): 5/5 motor strength present throughout Extrem: General: other (B/L LE edema non pitting.) Objective Data Vital Signs Vital Signs: Vital Signs - 24 hr 09/14/20 14:00 09/14/20 16:00 09/14/20 18:00 Temperature 98.2
--- NOTE | 2020-09-15 13:36 | PC.NURSE ---
This patient, En Wilson, was transferred to [facility] on 09/15/20 at 1336. Personal belongings sent with patient. Report given to Liseth MORAN. Appropriate documentation sent with patient.
--- NOTE | 2020-09-15 15:06 | PM.CNCAR ---
Assessment and Plan Assessment and plan (1) Bradycardia with 31-40 beats per minute: Code(s): R00.1 - Bradycardia, unspecified Status: Acute Assessment and Plan: Had a brief episode of bradycardia last night while sleeping and he has sleep apnea. Nothing needs to be done. Continue diltiazem. Encouraged CPAP use (2) A-fib: Qualifiers: Atrial fibrillation type: unspecified Qualified Code(s): I48.91 - Unspecified atrial fibrillation Code(s): I48.91 - Unspecified atrial fibrillation Status: Chronic Assessment and Plan: Continue rate control and anticoagulation (3) nursing home current use of anticoagulants with INR goal of 2.0-3.0: Code(s): Z79.01 - nursing home (current) use of anticoagulants Status: Acute Assessment and Plan: Continue warfarin and caution with antibiotics to not result in a supratherapeutic INR. Should have an INR drawn sometime early next week (4) Hypertension associated with diabetes: Code(s): E11.59 - Type 2 diabetes mellitus with other circulatory complications; I10 - Essential (primary) hypertension Status: Acute History of Present Illness History of Present Illness Consult date/time: 09/15/20 15:06 Requesting physician: Ally Bullock MD Consult reason: atrial fibrillation and Other (Bradycardia) Reason For Visit: Hyperglycemia Narrative: Date of service 09/15/2020 Reason for consultation bradycardia and pause and atrial fibrillation History patient is a 80-year-old male who has chronic atrial fibrillation. He is on a stable dose of diltiazem for rate control. He is on warfarin for anticoagulation purposes. He came to the hospital because markedly elevated blood sugars which are thought to be secondary to a urinary tract infection. His blood sugar was as high as 779. He was having episodes of polyuria and polydipsia recently. While on property assessment monitor last night in the IMU, the patient had a brief episode of bradycardia into the 20s and 30s as well as a 5 sec pause. This is while the patient is in atrial fibrillation. He is supposed to use CPAP but does not. He has sleep apnea. Patient otherwise feels completely fine at this point from a cardiac perspective and denies any chest pain, shortness breath, syncope, presyncope, paroxysmal nocturnal dyspnea, orthopnea, edema palpitations Review of Systems Review of Systems: All systems reviewed & are unremarkable except as noted in HPI and below Constitutional: Constitutional: Denies weakness Eyes: Eyes: Denies blurry vision ENT: Reports Normal hearing present Cardiovascular: Cardiovascular: Denies chest pain and Denies lightheadedness Respiratory: Respiratory: Denies cough and Denies dyspnea Gastrointestinal: Gastrointestinal: Denies no additional gastrointestinal complaints and Denies abdominal pain Genitourinary: Genitourinary: Denies dysuria and Denies urinary frequency Comments: Polyuria Musculoskeletal: Musculoskeletal: Denies neck pain Integumentary/Breasts: Skin/Breast: Denies dry skin and Denies skin pain Neurologic: Denies numbness Psychiatric: Psychiatric: Denies anxiety and Denies behavioral changes Endocrine: Endocrine: Denies excessive sweating Hematologic/Lymphatic: Hematologic/Lymphatic: Denies easy bleeding Allergic/Immunologic: Allergic/Immunologic: Denies GI upset with certain foods PMFSH Past Medical History Medical History A-fib BPH (benign prostatic hyperplasia) CKD (chronic kidney disease) stage 3, GFR 30-59 ml/min Degenerative disc disease Diabetes Hypertension Osteoarthritis Peripheral neuropathy Right hip pain Surgical History Surgical History H/O cataract extraction History of arthroplasty of left shoulder History of total hip replacement Right side S/p bilateral shoulder joint replacement Family Hist
[2020-09-15] MEDS: allopurinoL 100 MG TABLET 200 MG PO (16:37)
[2020-09-15] MEDS: metFORMIN HCL XR 500 MG TAB.SR.24H 1500 MG PO (16:37)
[2020-09-15] MEDS: WARFARIN (*PBKC) 4 MG TABLET PO (16:37)
[2020-09-15] MEDS: PRAMIPEXOLE 1 MG TABLET PO (16:38)
[2020-09-15 17:51] LABS: Glucose Point of Care 362 (65-105)
[2020-09-15] MEDS: INSULIN GLARGINE (*BKC) 100 UNITS/ML 20 UNITS SUB-Q (20:09)
[2020-09-15] MEDS: TAMSULOSIN HCL 0.4 MG CAPSULE PO (20:12)
[2020-09-15] MEDS: FINASTERIDE 5 MG TABLET PO (20:13)
[2020-09-15 21:48] LABS: Glucose Point of Care 369 (65-105)
[2020-09-15] MEDS: HYDROcodone/acetaminophen (*CRX) 7.5-325 MG TABLET 1 TAB PO (23:02)
[2020-09-16] VITALS (10 sets, daily range): BP systolic 102–121; BP diastolic 52–67; PULSE 75–142; RESP 14–20; TEMP 36.3–36.6; O2SAT 96–98
[2020-09-16 05:41] LABS: Basophils Percent Auto 0.4 % (0.2-1.2); Eosinophils Absolute Auto 0.3 K/mm3 (0-0.3); Eosinophils Percent Auto 4.2 % (0-4.4); Hematocrit 36.5 % (42.0-52.0); Hemoglobin 11.3 g/dL (14.0-18.0); Immature Granulocyte Absolute 0.05 K/mm3 (0.00-0.031); Immature Granulocyte Percent A 0.7 % (0-0.5); Lymphocytes Absolute Auto 1.59 K/mm3 (0.9-3.2); Lymphocytes Percent Auto 21.4 % (18.3-44.2); Mean Corpuscular Hemoglobin 28.3 pg (26-34); Mean Corpuscular Volume 91.3 fl (80-100); Monocytes Absolute Auto 0.6 K/mm3 (0.1-0.6); Monocytes Percent Auto 7.8 % (2.6-8.5); Neutrophils Absolute Auto 4.9 K/mm3 (1.3-6.7); Neutrophils Percent Auto 65.5 % (45.5-73.1); Platelet Count Result 297 k/mm3 (150-375); Red Cell Distribution Width 13.6 % (11.5-14.5); White Blood Count 7.4 K/mm3 (4.5-10.0)
[2020-09-16 05:51] LABS: INR 2.7; Prothrombin Time 28.8 Seconds (11.1-14.7)
[2020-09-16 07:38] LABS: Glucose Point of Care 280 (65-105)
[2020-09-16] MEDS: INSULIN ASPART (*BKC) 100 UNITS/ML SUB-Q ×3 (07:59→17:47)
[2020-09-16] MEDS: FUROSEMIDE 40 MG TABLET PO ×2 (07:59→17:49)
[2020-09-16] MEDS: glyBURIDE 2.5 MG TABLET PO (07:59)
[2020-09-16] MEDS: ACIDOPHILUS/BULGARICUS CHEWABLE TABLET 1 TABLET PO (07:59)
[2020-09-16] MEDS: SPIRONOLACTONE 25 MG TABLET 50 MG PO (08:00)
--- NOTE | 2020-09-16 09:51 | PM.PNCARD ---
Progress Note: A&P Assessment and Plan (1) Bradycardia with 31-40 beats per minute: Code(s): R00.1 - Bradycardia, unspecified Status: Acute Assessment and Plan: Three brief episodes of bradycardia during the night. Longest pause was 2.92 seconds. Continue diltiazem. Encouraged CPAP use Tachycardia noted this morning. Heart rate better controlled once he has his diltiazem. Follow-up with at [place]. 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 Should have an INR drawn sometime early next week (4) Hypertension associated with diabetes: Code(s): E11.59 - Type 2 diabetes mellitus with other circulatory complications; I10 - Essential (primary) hypertension Status: Acute Assessment and Plan: At goal Additional Plan No further cardiac recommendations. Cardiology will sign off. Please do not hesitate to call if we can be of further assistance. Plan discussed Dr. Grullon [id number] 09/16/2020 Subjective Date/time seen: 09/16/20 09:51 Interval history: Follow-up for: Bradycardia, atrial fibrillation, long-term use of anticoagulation-warfarin, hypertension Date of service: 09/16/2020 Subjective: Denied chest discomfort, shortness of breath, lightheadedness or palpitations. Unaware that his heart rate went to 140. Review of Systems Constitutional: Constitutional: Denies excessive sweating and Denies weakness Eyes: Eyes: Denies blurry vision ENT: Reports Normal hearing present and Denies neck pain Cardiovascular: Cardiovascular: Denies chest pain, Reports pedal edema (Left since cellulitis), Denies lightheadedness and Denies dyspnea Respiratory: Respiratory: Denies cough and Denies dyspnea Gastrointestinal: Gastrointestinal: Denies no additional gastrointestinal complaints and Denies abdominal pain Genitourinary: Genitourinary: Denies hematuria, Denies dysuria and Denies urinary frequency Musculoskeletal: Musculoskeletal: Denies back pain, Denies neck pain and Denies numbness Integumentary/Breasts: Skin/Breast: Denies dry skin and Denies skin pain Neurologic: Reports Normal hearing present, Denies behavioral changes, Denies numbness and Denies weakness Psychiatric: Psychiatric: Denies anxiety and Denies behavioral changes Endocrine: Endocrine: Denies excessive sweating Hematologic/Lymphatic: Hematologic/Lymphatic: Denies easy bleeding Allergic/Immunologic: Allergic/Immunologic: Denies GI upset with certain foods Exam Narrative: Exam Narrative: Pleasant, talkative gentleman in no distress. Denied discomfort. Const: General: comfortable and no acute distress HENMT: General nose exam: Normal nares present Eyes: Sclera: sclerae normal Neck: Neck: supple and no JVD Resp: Auscultation: clear to auscultation bilaterally Cardio: Rate: regular rate Rhythm: abnormal rhythm irregularly irregular Heart sounds: no murmurs Peripheral pulses: Peripheral pulses 2+ throughout GI: GI Palp: Yes Soft to palpation Auscultation: normal bowel sounds Skin: Other: Chronic stasis changes noted to his lower extremities Neuro: Cranial nerves: Yes Normal hearing present Cognition (Neuro): normal cognition Speech: normal speech Extrem: General: normal to inspection and edema (Trivial bilateral lower extremity edema left greater than right) Psych: Appearance:
[2020-09-16 11:37] LABS: Glucose Point of Care 303 (65-105)
--- NOTE | 2020-09-16 16:12 | PM.IMPN ---
Progress Note: A&P Assessment and Plan (1) Bradycardia with 31-40 beats per minute: Code(s): R00.1 - Bradycardia, unspecified Status: Acute Assessment and Plan: No need for immediate intervention currently Appreciate Cardiology note. Will follow up at [place] where his usual Hospice Spiritual Care Coordinator is. (2) Acute hyponatremia: Code(s): E87.1 - Hypo-osmolality and hyponatremia Status: Acute Assessment and Plan: Likely secondary to hyperosmolality. (3) Acute hyperglycemia: Code(s): R73.9 - Hyperglycemia, unspecified Status: Acute Assessment and Plan: Better controlled ADA diet ISS as needed Lantus Insulin Metformin Glyburide (4) Acute UTI: Code(s): N39.0 - Urinary tract infection, site not specified Status: Acute Assessment and Plan: Continue Rocephin Can likely switch to PO in am. (5) Obstructive sleep apnea on CPAP: Code(s): G47.33 - Obstructive sleep apnea (adult) (pediatric); Z99.89 - Dependence on other enabling machines and devices Status: Acute Assessment and Plan: Encourage the use of CPAP Subjective Date/time seen: 09/16/20 16:12 My sugars are not ok and my heart rate is not ok. Review of Systems Review of Systems: Narrative: My sugars are not good and my heart rate is not good either. Constitutional: Comments: no fevers, no chills. Eyes: Comments: no vision changes. ENT: Comments: no ear ache, no throat pain, no nasal congestion. Cardiovascular: Comments: no chest pain, no palpitations, no dizziness. Respiratory: Comments: no chest pain. Gastrointestinal: Comments: no n/v/abdominal pain. Musculoskeletal: Comments: no pain. Integumentary/Breasts: Comments: no rashes. Hematologic/Lymphatic: Comments: No LAP Exam Narrative: Exam Narrative: Sitting in couch. Const: General: comfortable, no acute distress, alert, awake and Physically active Nutritional Appearance: overweight Orientation/consciousness: patient oriented x3 Limitations: no limitations HENMT: Head: normal to inspection and normocephalic Ears: hearing grossly normal bilaterally General nose exam: Normal external nose present Face and sinus: normal facial exam Eyes: General: appearance normal, both eyes and all related structures Pupils: Equal, round and reactive pupils present EOM: EOMs intact bilaterally Neck: Neck: no lymphadenopathy, supple and no JVD Resp: Effort & Inspection: normal respiratory effort Auscultation: clear to auscultation bilaterally Cardio: Rate: regular rate Rhythm: regular rhythm GI: GI Palp: Yes Soft to palpation and Yes No hepatosplenomegaly present Skin: General skin exam: normal color Rashes: no rashes Trauma: no lacerations or abrasions Wounds: no wounds Neuro: General: patient oriented x3 and CN's II-XI intact bilaterally Cranial nerves: Yes CN's II-XII intact bilaterally and Yes Equal, round and reactive pupils present Cognition (Neuro): normal cognition Speech: normal speech Gait exam (Neuro): Normal gait present Motor exam (neuro): 5/5 motor strength present throughout Extrem: General: normal to inspection and no pedal edema Objective Data Vital Signs Vital Signs: Vital Signs - 24 hr 09/15/20 19:45 09/15/20 20:00 09/15/20 23:55 Temperature 97.1 F L Pulse Rate 91 77 82 Respiratory Rate 17 22 H 18 Blood Pressure 116/65 Pulse Oximetry 96 99 99 09/16/20 00:00 09/16/20 04:00 09/16/20 06:14 Temperature Pulse Rate 82 85 142 H Respiratory Rate Blood Pressure Pulse Oximetry 09/16/20 06:19 09/16/20 08:00 09/16/20 12:00 Temperature 97.6 F Pulse Rate 87 121 H 96 Respiratory Rate 18 Blood Pressure 121/52 L Pulse Oximetry 96 09/16/20 14:26 Temperature 97.9 F Pulse Rate 75 Respiratory Rate 14 Blood Pressure 102/67 Pulse Oximetry 98 Intake/Output Intake/Output: Intake & Output 09/13/20 09/14/20 09/15/20 09/16/20 23:59 23:59 23:59 23:59 Int
[2020-09-16 17:22] LABS: Glucose Point of Care 272 (65-105)
[2020-09-16] MEDS: allopurinoL 100 MG TABLET 200 MG PO (17:49)
[2020-09-16] MEDS: metFORMIN HCL XR 500 MG TAB.SR.24H 1500 MG PO (17:49)
[2020-09-16] MEDS: WARFARIN (*PBKC) 3 MG TABLET PO (17:49)
[2020-09-16] MEDS: PRAMIPEXOLE 1 MG TABLET PO (17:49)
[2020-09-16] MEDS: FINASTERIDE 5 MG TABLET PO (20:40)
[2020-09-16] MEDS: TAMSULOSIN HCL 0.4 MG CAPSULE PO (20:40)
[2020-09-16] MEDS: INSULIN GLARGINE (*BKC) 100 UNITS/ML 20 UNITS SUB-Q (20:43)
[2020-09-16 21:05] LABS: Glucose Point of Care 226 (65-105)
[2020-09-16] MEDS: HYDROcodone/acetaminophen (*CRX) 7.5-325 MG TABLET 1 TAB PO (22:09)
[2020-09-17] VITALS: PULSE 80
[2020-09-17 04:00] VITALS: PULSE 66
[2020-09-17 05:29] LABS: INR 2.8; Prothrombin Time 29.7 Seconds (11.1-14.7)
[2020-09-17 06:00] VITALS: BP 109/76; PULSE 88; RESP 21; TEMP 36.6; O2SAT 100
[2020-09-17 07:45] LABS: Glucose Point of Care 176 (65-105)
[2020-09-17 08:00] VITALS: PULSE 106
[2020-09-17] MEDS: FUROSEMIDE 40 MG TABLET PO (08:59)
[2020-09-17] MEDS: glyBURIDE 2.5 MG TABLET PO (08:59)
[2020-09-17] MEDS: ACIDOPHILUS/BULGARICUS CHEWABLE TABLET 1 TABLET PO (08:59)
[2020-09-17] MEDS: SPIRONOLACTONE 25 MG TABLET 50 MG PO (09:00)
--- NOTE | 2020-09-17 09:26 | PM.DS ---
DS: Admitting Diagnosis Admitting Diagnosis Admitting Diagnosis: Admitting diagnosis 1. Bradycardia 2. Paroxysmal atrial fibrillation 3. Acute UTI 4. Hypertension 5. Hyperglycemia DS: Discharge Diagnosis Discharge Diagnosis (1) Bradycardia with 31-40 beats per minute: Code(s): R00.1 - Bradycardia, unspecified Status: Acute Assessment and Plan: No need for immediate intervention currently Appreciate Cardiology note. Will follow up at [place] where his usual Family Engagement Specialist is. (2) Acute UTI: Code(s): N39.0 - Urinary tract infection, site not specified Status: Acute Assessment and Plan: Continue Rocephin Can likely switch to PO in am. (3) Hypertension associated with diabetes: Code(s): E11.59 - Type 2 diabetes mellitus with other circulatory complications; I10 - Essential (primary) hypertension Status: Acute (4) Paroxysmal atrial fibrillation: Code(s): I48.0 - Paroxysmal atrial fibrillation Status: Acute (5) Acute hyperglycemia: Code(s): R73.9 - Hyperglycemia, unspecified Status: Acute Assessment and Plan: Better controlled ADA diet ISS as needed Lantus Insulin Metformin Glyburide DS: Summary Hospital Course Reason for hospitalization: Reason for hospitalization was cardiac arrhythmia bradycardia and acute UTI also patient has high sugar [facility] complaint: cellulitis LLE Narrative: En Wilson is a 80 year old male with past medical history of AFib on warfarin , BPH, diabetes type 2 who presents to the ED with chief complaint of left lower extremity redness/swelling / pain for the past 3 days. a month ago he had a callus removed on left great toe without complication. by Dr. Moses. Since then he has had no trauma to his lower extremity or bug bites that he knows of. His symptoms are limited to his left lower extremity medial aspect of his doll. he has no joint pain. He has no systemic complaints, denies fever, chills, nausea, vomiting, diarrhea. primary care provider was concerned and asked patient to come to hospital. In the ED: X-ray of his left foot she had polyarticular arthritis and severe hallux valgus. EKG showed AFib with RVR rate 111. lactic acid 3.1, potassium 3.2 elevated CRP 13.6, WBC 12.8 Hospital Course: Patient is 80 years old male who was admitted on 09/13/2020 for bradycardia and acute intake infection patient was found to have a high sugar also patient was given IV antibiotics ceftriaxone and urine culture was done a urine culture shows patient has bacterial infection that was sensitive to Levaquin cardiology consultation was done that also recommended that patient continue Cardizem and there is no need for acute intervention is present time will also continue or oral anticoagulation and send the patient out patient for further evaluation in [facility] with 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 for that he needs any further evaluation treatment of his bradycardia at present time patient is asymptomatic and patient discharged home stable condition low-sodium diet activity as tolerated for the pain because patient cardiology outpatient next week condition termed as hip Time spent discussing smoking cessation with patient: 3 to 10 minutes Status at Discharge Cognitive/behavioral status at discharge: Status stable Functional status at discharge: independent ambulation Time Spent with Patient Time attestation: Total time spent providing and/or coordinating discharge services: Time spent: Less than 30 minutes Specific discharge activities: Activities as tolerated Exam Const: General: cooperative and healthy appearing Nutritional Appearance: average body habitus and well nourished Orientation/consciousness: oriented to person, oriented to place and oriented to time Limitations: no limitations HENMT: Head: normal to inspection Ears: hearing grossly normal bilaterally General nose exam: Normal nares present Face and sinus: normal facial exam Bárbara
[2020-09-17] MEDS: INSULIN ASPART (*BKC) 100 UNITS/ML SUB-Q (11:16)
[2020-09-17 11:19] LABS: Glucose Point of Care 296 (65-105)
== END 2020-09-17 12:30 | disposition home or self-care (01) ==
LOC: ANHED 10:59 → ANHIMU 15:30 → ANH2MED 09-17 09:25 → ANHIMU 09-18 15:39
PROVIDERS: Family Medicine; Internal Medicine; Nurse Practitioner; Admitting Provider Family Medicine; Emergency Provider Emergency Medicine; PCP Physician Assistant; Visit Provider Internal Medicine
DX: E11.65 Type 2 diabetes mellitus with hyperglycemia (principal); I13.0 Hypertensive heart and chronic kidney disease with heart failure and stage 1 through stage 4 chronic kidney disease, or unspecified chronic kidney disease; N39.0 Urinary tract infection, site not specified; E11.22 Type 2 diabetes mellitus with diabetic chronic kidney disease; E11.59 Type 2 diabetes mellitus with other circulatory complications; R00.1 Bradycardia, unspecified; N18.30 Chronic kidney disease, stage 3 unspecified; I50.32 Chronic diastolic (congestive) heart failure; N40.1 Benign prostatic hyperplasia with lower urinary tract symptoms; R33.8 Other retention of urine; R35.8 Other polyuria; I48.91 Unspecified atrial fibrillation; E11.42 Type 2 diabetes mellitus with diabetic polyneuropathy; E87.1 Hypo-osmolality and hyponatremia; G47.33 Obstructive sleep apnea (adult) (pediatric); R63.1 Polydipsia; R60.9 Edema, unspecified; Z87.891 Personal history of nicotine dependence; Z79.01 Long term (current) use of anticoagulants; Z79.84 Long term (current) use of oral hypoglycemic drugs; Z96.612 Presence of left artificial shoulder joint; Z96.611 Presence of right artificial shoulder joint; Z96.641 Presence of right artificial hip joint
CPT/HCPCS: 36415; 36600; 80048; 80053; 81001; 82010; 82375; 82805; 82947; 82948; 83036; 83050; 83615; 83735; 84100; 84443; 85025; 85610; 87040; 87077; 87086; 87088; 87186; 94660; 96360; 96361; 96365; 96376; 99285; A9270; G0378; J0696; J1815; J7030

== ENCOUNTER 2020-12-20 09:31 | Outpatient (CLI) | payer MEDICARE, SELFPAY ==
--- NOTE | 2020-12-20 | ECHO_ITS ---
Patient Info Name: En Wilson Age: 80 years : 1940 Gender: Male Ht: 68 in Wt: 235 lbs BSA: 2.30 m2 HR: 51 bpm BP: 93 / 63 mmHg Heart Rhythm: Atrial Fibrillation Technical Quality: Good Exam Date: 12/20/2020 10:17 AM Exam Location: [facility] Pulmonary Patient Status: Outpatient Admit Date: 12/20/2020 Staff Ordering Physician: TIAN HAMILTON MD Resist Coater Developer: Fatemeh Chand RDCS Attending Provider: TIAN HAMILTON MD Referring Physician: JOY CORTEZ; Exam Type: CA echo doppler color flow Study Info Indications I50.30 - Unspecified diastolic (congestive) heart failure Complete two-dimensional, color flow and Doppler transthoracic echocardiogram is performed. Summary 1. Complete two-dimensional, color flow and Doppler transthoracic echocardiogram is performed. 2. Four-chamber cardiac dilatation. 3. Mild LV enlargement with mildly depressed systolic function. 4. Sclerotic aortic valve which is not significantly stenotic. 5. Small amount of mitral regurgitation. Left Ventricle Left ventricular chamber dimension is moderately enlarged. Left ventricular systolic function is mildly reduced, estimated at 40-45%. The left ventricular diastolic function is indeterminate. Right Ventricle Right ventricular chamber dimension is moderately enlarged. Left Atria Left atrial chamber dimension is severely enlarged. Right Atria Right atrial chamber dimension is severely enlarged. Aortic Valve The aortic valve is trileaflet. There is mild aortic valve sclerosis. Pulmonic Valve The pulmonic valve is not well visualized. Mitral Valve The mitral valve has normal leaflets. There is trace mitral valve regurgitation. Tricuspid Valve The tricuspid valve leaflets are normal. There is mild tricuspid valve regurgitation. Pericardium/Pleural The pericardium appears normal. Aorta The aortic root size at the sinus of Valsalva is normal. Left Ventricular Outflow Tract Name Value Normal LVOT 2D LVOT Diameter 2.1 cm LVOT Doppler LVOT Peak Gradient 4 mmHg LVOT Mean Gradient 3 mmHg LVOT VTI 24 cm LVOT VTI/AV VTI Ratio 0.8 LVOT Stroke Volume 81 ml LVOT CO 16.5 l/min LVOT CI 7.1 l/min/m2 Pulmonic Valve Name Value Normal PV Doppler PV Peak Gradient 2 mmHg Mitral Valve Name Value Normal MV Doppler MV Decel Lipscomb 469 cm/s2 MV P
== END 2020-12-20 09:32 | disposition home or self-care (01) ==
PROVIDERS: PCP Physician Assistant
DX: I50.30 Unspecified diastolic (congestive) heart failure (principal); I50.9 Heart failure, unspecified; M79.89 Other specified soft tissue disorders; I48.91 Unspecified atrial fibrillation
CPT/HCPCS: 93306

== ENCOUNTER 2021-05-14 13:38 | Outpatient (CLI) | payer MEDICARE, SELFPAY ==
--- NOTE | ~2021-05-14 | US_ITS ---
US renal BI 05/14/2021 14:05 Procedure: Realtime transabdominal ultrasound of the kidneys and bladder. Indication: Chronic renal disease. Comparison: CT dated 08/04/2020 Findings: Renal echotexture is normal bilaterally without hydronephrosis, contour deforming mass or r enal calculus. There is a right renal cyst measuring 1.4 cm. The right kidney measures 10.7 cm and le ft kidney measures 11.6 cm. Bladder wall is mildly thickened measuring 4.5 mm Impression: 1: Mild bladder wall thickening. Consider cystitis in the appropriate clinical setting. Reviewed, dictated and finalized at location A. Impression: 1: Mild bladder wall thickening. Consider cystitis in the appropriate clinical setting.
== END 2021-05-14 13:39 | disposition home or self-care (01) ==
LOC: ANHIMG 13:41
PROVIDERS: PCP Family Medicine; Visit Provider Physician Assistant
DX: N18.9 Chronic kidney disease, unspecified (principal)
CPT/HCPCS: 76775

== ENCOUNTER 2021-08-05 16:34 | Emergency (ER) | payer MEDICARE, SELFPAY ==
[2021-08-05 16:48] VITALS: BP 114/72; PULSE 95; RESP 20; TEMP 36.4; O2SAT 96
--- NOTE | 2021-08-05 17:02 | ED.SKABFB ---
HPI - Skin/Abscess/Foreign Bdy General Chief complaint: Extremity Injury, Upper Stated complaint: rt arm injury Time Seen by Provider: 08/05/21 16:48 Source: patient, RN notes reviewed and old records reviewed Mode of arrival: ambulatory Limitations: no limitations History of Present Illness HPI narrative: 81-year-old male presents to the [facility] with 3 skin tears from bumping his arm this morning. Patient reports that he bumped his arm probably about 7 AM this morning. States he had a take his to [place] to get evaluated and possibly a blood transfusion presents now for an evaluation and to stop the bleeding. Patient denies hitting head, no loss of consciousness. Denies any chest pain or abdominal pain. States that his put dressings on it this morning and it has not stopped bleeding. Patient currently on Plavix and Coumadin. Patient reports that he did have his INR checked yesterday which he reports is within normal limits. Patient denies any chest pain or shortness of breath. Related Data Home Medications Medication Instructions Recorded Confirmed finasteride 5 mg tablet 5 mg PO HS 08/21/19 08/05/21 furosemide 40 mg tablet 40 mg PO BID 08/21/19 08/05/21 tamsulosin 0.4 mg capsule 0.4 mg PO HS 03/14/20 08/05/21 metolazone 5 mg tablet 5 mg PO DAILY 07/31/21 08/05/21 spironolactone 25 mg tablet 100 mg PO QAM tablet 07/31/21 08/05/21 allopurinol 100 mg PO BID 08/05/21 08/05/21 atorvastatin 40 mg PO DAILY 08/05/21 08/05/21 clopidogrel 75 mg PO DAILY 08/05/21 08/05/21 glyburide 2.5 mg PO DAILY 08/05/21 08/05/21 linaclotide [Linzess] 290 mcg PO DAILY 08/05/21 08/05/21 warfarin 4 mg PO DAILY 08/05/21 08/05/21 Allergies Allergy/AdvReac Type Severity Reaction Status Date / Time No Known Allergies Allergy Verified 08/05/21 19:48 Review of Systems Review of Systems: All systems reviewed & are unremarkable except as noted in HPI and below Constitutional: Constitutional: Reports no additional constitutional complaints Eyes: Eyes: Reports no additional eye complaints ENT: Reports system reviewed and no additional complaints, except as documented Cardiovascular: Cardiovascular: Reports no additional cardiovascular complaints Respiratory: Respiratory: Reports no additional respiratory complaints Gastrointestinal: Gastrointestinal: Reports no additional gastrointestinal complaints Integumentary/Breasts: Skin/Breast: Reports as per HPI Comments: 3 skin tears Neurologic: Reports system reviewed and no additional complaints, except as documented Psychiatric: Psychiatric: Reports no additional psychiatric complaints Allergic/Immunologic: Allergic/Immunologic: Reports no additional allergic/immunologic complaints [facility] Past Medical History Medical History A-fib BPH (benign prostatic hyperplasia) Cardiomyopathy Chronic congestive heart failure CKD (chronic kidney disease) stage 3, GFR 30-59 ml/min Degenerative disc disease Diabetes Hypertension Osteoarthritis Peripheral neuropathy Right hip pain Surgical History Surgical History H/O cataract extraction History of arthroplasty of left shoulder History of total hip replacement Right side S/p bilateral shoulder joint replacement Family History Family History Father Family history of malignant neoplasm of stomach at the age of 59 Mother Cancer Social History Social History Social History: uses cane, still drives. He lives with his in a duplex. His is the durable power attorney at law for healthcare. The patient is a full code. He has 2 children. He is retired from [employer]. The patient smoked a pack a cigarettes a day and quit 52 years ago. No alcohol or illicit drugs. Smoking packs per day: 1 Smoking cigarettes per d
== END 2021-08-05 17:38 | disposition home or self-care (01) ==
PROVIDERS: Emergency Provider Nurse Practitioner; PCP Family Medicine
DX: S51.811A Laceration without foreign body of right forearm, initial encounter (principal); S41.111A Laceration without foreign body of right upper arm, initial encounter; X58.XXXA Exposure to other specified factors, initial encounter; F17.210 Nicotine dependence, cigarettes, uncomplicated; I48.91 Unspecified atrial fibrillation; N40.0 Benign prostatic hyperplasia without lower urinary tract symptoms; I11.0 Hypertensive heart disease with heart failure; I50.9 Heart failure, unspecified; I13.0 Hypertensive heart and chronic kidney disease with heart failure and stage 1 through stage 4 chronic kidney disease, or unspecified chronic kidney disease; E11.22 Type 2 diabetes mellitus with diabetic chronic kidney disease; N18.30 Chronic kidney disease, stage 3 unspecified; M19.90 Unspecified osteoarthritis, unspecified site; E11.42 Type 2 diabetes mellitus with diabetic polyneuropathy; Z98.49 Cataract extraction status, unspecified eye; Z96.641 Presence of right artificial hip joint; Z96.612 Presence of left artificial shoulder joint; Z96.611 Presence of right artificial shoulder joint
CPT/HCPCS: 99212; G0463

== ENCOUNTER 2021-08-05 22:06 | Emergency (ER) | payer MEDICARE, SELFPAY ==
[2021-08-05 22:19] VITALS: BP 106/67; PULSE 62; RESP 18; TEMP 36.2; O2SAT 97
[2021-08-05 23:48] VITALS: BP 129/82; PULSE 80; RESP 18; TEMP 36.7; O2SAT 100
--- NOTE | 2021-08-06 01:52 | ED.GENADULT ---
HPI - General Adult General Chief complaint: Wound/Laceration Stated complaint: Fall. Right arm skin tears Time Seen by Provider: 08/06/21 01:25 History of Present Illness HPI narrative: Patient 81-year-old gentleman who presents the emergency department with chief complaint of bleeding from skin tear. The patient was seen in urgent care earlier today after he had a ground-level fall and had a significant skin tear to his right upper extremity. Patient reports he is on antiplatelet therapy and a blood thinner and reports that he was dressed at that time but continued to saturate the dressing and was instructed if he had continual bleeding he should come to the emergency department. Patient denies head injury denies loss of consciousness denies neck pain reports that his tetanus status is up-to-date. Patient denies any focal neurological deficits. Related Data Home Medications Medication Instructions Recorded Confirmed finasteride 5 mg tablet 5 mg PO HS 08/21/19 08/05/21 furosemide 40 mg tablet 40 mg PO BID 08/21/19 08/05/21 tamsulosin 0.4 mg capsule 0.4 mg PO HS 03/14/20 08/05/21 metolazone 5 mg tablet 5 mg PO DAILY 07/31/21 08/05/21 spironolactone 25 mg tablet 100 mg PO QAM tablet 07/31/21 08/05/21 allopurinol 100 mg PO BID 08/05/21 08/05/21 atorvastatin 40 mg PO DAILY 08/05/21 08/05/21 clopidogrel 75 mg PO DAILY 08/05/21 08/05/21 glyburide 2.5 mg PO DAILY 08/05/21 08/05/21 linaclotide [Linzess] 290 mcg PO DAILY 08/05/21 08/05/21 warfarin 4 mg PO DAILY 08/05/21 08/05/21 Allergies Allergy/AdvReac Type Severity Reaction Status Date / Time No Known Allergies Allergy Verified 08/05/21 19:48 Review of Systems Review of Systems: A 10 system review of systems was completed on the patient and is negative except for what is stated in the HPI. Nursing and ancillary documentation was reviewed. [facility] Past Medical History Medical History A-fib BPH (benign prostatic hyperplasia) Cardiomyopathy Chronic congestive heart failure CKD (chronic kidney disease) stage 3, GFR 30-59 ml/min Degenerative disc disease Diabetes Hypertension Osteoarthritis Peripheral neuropathy Right hip pain Surgical History Surgical History H/O cataract extraction History of arthroplasty of left shoulder History of total hip replacement Right side S/p bilateral shoulder joint replacement Family History Family History Father Family history of malignant neoplasm of stomach at the age of 59 Mother Cancer Social History Social History Social History: uses cane, still drives. He lives with his in a duplex. His is the durable power commercial real estate attorney for healthcare. The patient is a full code. He has 2 children. He is retired from [employer]. The patient smoked a pack a cigarettes a day and quit 52 years ago. No alcohol or illicit drugs. Smoking packs per day: 1 Smoking cigarettes per day: 20.0 Tobacco type: cigarettes Alcohol intake: never Substance use: never Gender identity (if verbalized by the patient): Male Spiritual care concerns: No Exam Narrative: GENERAL: Well-appearing, well-nourished, and in no acute distress. HEAD: Normocephalic, atraumatic. EYES: PERRLA and EOMI. ENT: Nares clear, no rhinorrhea or epistaxis. Mucous membranes moist. NECK: Supple. CHEST: Clear to auscultation. No respiratory distress. HEART: Regular rate and rhythm. No murmur heard. Normal peripheral pulses. ABDOMEN: Soft, nontender, nondistended, normal active bowel sounds. EXTREMITIES: Normal range of motion. No edema. There are 3 areas of skin tear to the right upper extremity in the forearm area. The most distal one there is a small arterial bleed present. There is no irrit
[2021-08-06 02:05] VITALS: BP 131/73; PULSE 80; RESP 16; O2SAT 99
== END 2021-08-06 02:06 | disposition home or self-care (01) ==
PROVIDERS: Emergency Provider Emergency Medicine; PCP Family Medicine
DX: S51.811A Laceration without foreign body of right forearm, initial encounter (principal); F17.210 Nicotine dependence, cigarettes, uncomplicated; I48.91 Unspecified atrial fibrillation; N40.0 Benign prostatic hyperplasia without lower urinary tract symptoms; I13.0 Hypertensive heart and chronic kidney disease with heart failure and stage 1 through stage 4 chronic kidney disease, or unspecified chronic kidney disease; E11.22 Type 2 diabetes mellitus with diabetic chronic kidney disease; N18.9 Chronic kidney disease, unspecified; I50.9 Heart failure, unspecified; Z79.84 Long term (current) use of oral hypoglycemic drugs; Z79.01 Long term (current) use of anticoagulants; M19.90 Unspecified osteoarthritis, unspecified site; W19.XXXA Unspecified fall, initial encounter
CPT/HCPCS: 12001; 99283

== ENCOUNTER 2021-09-08 11:29 | Emergency (ER) | payer MEDICARE, SELFPAY ==
--- NOTE | ~2021-09-08 | XR_ITS ---
XR thoracic spine 3V 09/08/2021 19:14 Indication: Back pain. Procedure: 3 views of the thoracic spine Comparison: 04/07/2017 Findings: There is moderate multilevel spondylosis. T1 and T2 are not well visualized on the lateral view secondary to overlying shoulder arthroplasties. No acute fracture or traumatic malalignment is i dentified. No paraspinal soft tissue abnormality. Surrounding osseous structures are grossly unremark able. Impression: 1: Moderate thoracic spondylosis. Limited visualization of T1 and T2 on the lateral view due to shoul frances arthroplasties. Reviewed, dictated and finalized at location A. TRICIAN THIRD Impression: 1: Moderate thoracic spondylosis. Limited visualization of T1 and T2 on the lat eral view due to shoulder arthroplasties.
[2021-09-08 12:09] VITALS: BP 108/64; PULSE 108; RESP 18; TEMP 36.2; O2SAT 97
[2021-09-08 15:18] VITALS: BP 94/51; PULSE 94; RESP 16; TEMP 37; O2SAT 95
[2021-09-08 17:56] VITALS: BP 117/81; PULSE 99; RESP 20; O2SAT 99
[2021-09-08] MEDS: HYDROcodone/acetaminophen (*CRX) 5-325 MG TABLET 1 TAB PO (20:41)
[2021-09-08 20:42] VITALS: BP 96/67; PULSE 84; RESP 18; O2SAT 99
--- NOTE | 2021-09-08 20:46 | ED.GENADULT ---
HPI - General Adult General Chief complaint: Back Pain/Injury Stated complaint: Back Pain Time Seen by Provider: 09/08/21 18:12 Source: patient Mode of arrival: ambulatory Limitations: no limitations History of Present Illness HPI narrative: Patient is a 81-year-old male presented with chief complaint of pain to his left thoracic area that began yesterday after reaching upward and feeling a popping in his shoulder upper back area. Patient reports that he took one of his hydrocodone this morning but has not taking any additional pain medication. Patient denies any falls or other traumas. Patient denies any other symptoms or concerns. Related Data Home Medications Medication Instructions Recorded Confirmed finasteride 5 mg tablet 5 mg PO HS 08/21/19 08/05/21 furosemide 40 mg tablet 40 mg PO BID 08/21/19 08/05/21 tamsulosin 0.4 mg capsule 0.4 mg PO HS 03/14/20 08/05/21 metolazone 5 mg tablet 5 mg PO DAILY 07/31/21 08/05/21 spironolactone 25 mg tablet 100 mg PO QAM tablet 07/31/21 08/05/21 allopurinol 100 mg PO BID 08/05/21 08/05/21 atorvastatin 40 mg PO DAILY 08/05/21 08/05/21 clopidogrel 75 mg PO DAILY 08/05/21 08/05/21 glyburide 2.5 mg PO DAILY 08/05/21 08/05/21 linaclotide [Linzess] 290 mcg PO DAILY 08/05/21 08/05/21 warfarin 4 mg PO DAILY 08/05/21 08/05/21 Allergies Allergy/AdvReac Type Severity Reaction Status Date / Time No Known Allergies Allergy Verified 09/08/21 18:00 Review of Systems Review of Systems: CONSTITUTIONAL: Denies fever, chills, or sweats. EYES: Denies visual changes, redness, or discharge. ENT: Denies rhinorrhea, congestion, sore throat, or otalgia. CARDIOVASCULAR: Denies chest pain, palpitations, or edema. RESPIRATORY: Denies cough or dyspnea. GASTROINTESTINAL: Denies abdominal pain, nausea, vomiting, or diarrhea. GENITOURINARY: Denies dysuria or hematuria. SKIN: Denies rash or itching. MUSCULOSKELETAL: Reports left thoracic pain denies low back pain, joint pain, or myalgia. NEUROLOGIC: Denies headache, numbness, dizziness, or weakness. PSYCHIATRIC: Denies anxiety or depression. [facility] Past Medical History Medical History A-fib BPH (benign prostatic hyperplasia) Cardiomyopathy Chronic congestive heart failure CKD (chronic kidney disease) stage 3, GFR 30-59 ml/min Degenerative disc disease Diabetes Hypertension Osteoarthritis Peripheral neuropathy Right hip pain Surgical History Surgical History H/O cataract extraction History of arthroplasty of left shoulder History of total hip replacement Right side S/p bilateral shoulder joint replacement Family History Family History Father Family history of malignant neoplasm of stomach at the age of 59 Mother Cancer Social History Social History Social History: uses cane, still drives. He lives with his in a duplex. His is the durable power garnett machine operator helper for healthcare. The patient is a full code. He has 2 children. He is retired from [employer]. The patient smoked a pack a cigarettes a day and quit 52 years ago. No alcohol or illicit drugs. Smoking packs per day: 1 Smoking cigarettes per day: 20.0 Tobacco type: cigarettes Alcohol intake: never Substance use: never Gender identity (if verbalized by the patient): Male Spiritual care concerns: No Exam Narrative: GENERAL: Well-appearing, well-nourished, and in no acute distress. HEAD: Normocephalic, atraumatic. EYES: PERRLA and EOMI. CHEST: Clear to auscultation. No respiratory distress. No tachypnea or distress. BACK:Tenderness to left parathoracic muscles with movement. Not at rest. EXTREMITIES: Normal range of motion. No edema. SKIN: Various bruises. Warm, dry, no rash. NEURO: No focal deficits.
== END 2021-09-08 21:18 | disposition home or self-care (01) ==
PROVIDERS: Emergency Provider Emergency Medicine; PCP Family Medicine
DX: M62.830 Muscle spasm of back (principal); I48.91 Unspecified atrial fibrillation; N40.0 Benign prostatic hyperplasia without lower urinary tract symptoms; I13.0 Hypertensive heart and chronic kidney disease with heart failure and stage 1 through stage 4 chronic kidney disease, or unspecified chronic kidney disease; E11.22 Type 2 diabetes mellitus with diabetic chronic kidney disease; N18.30 Chronic kidney disease, stage 3 unspecified; I50.9 Heart failure, unspecified; E11.42 Type 2 diabetes mellitus with diabetic polyneuropathy; M19.90 Unspecified osteoarthritis, unspecified site; Z98.49 Cataract extraction status, unspecified eye; Z96.641 Presence of right artificial hip joint; Z96.612 Presence of left artificial shoulder joint; Z96.611 Presence of right artificial shoulder joint; Z79.01 Long term (current) use of anticoagulants; Z87.891 Personal history of nicotine dependence
CPT/HCPCS: 72072; 99283; A9270

== ENCOUNTER 2021-09-11 15:05 | Outpatient (CLI) | payer MEDICARE, SELFPAY ==
--- NOTE | ~2021-09-11 | XR_ITS ---
XR chest 2V 09/11/2021 15:33 Indication: Chest pain Procedure: PA and lateral views of the chest Comparison: 11/18/2006 Findings: Heart size normal. No focal air space disease, pulmonary edema, pleural effusion or suspect ed pneumothorax. There are bilateral shoulder arthroplasties. Impression: 1: No acute cardiopulmonary disease. Reviewed, dictated and finalized at location A. DYER Impression: 1: No acute cardiopulmonary disease.
== END 2021-09-11 15:06 | disposition home or self-care (01) ==
LOC: ANHIMG 15:15
PROVIDERS: PCP Family Medicine; Visit Provider Family Medicine
DX: R07.9 Chest pain, unspecified (principal)
CPT/HCPCS: 71046

== ENCOUNTER 2021-09-28 07:01 | Inpatient (IN) | payer MEDICARE, SELFPAY ==
[2021-09-28] VITALS (13 sets, daily range): BP systolic 97–132; BP diastolic 60–111; PULSE 34–103; RESP 16–20; TEMP 36.1–36.8; O2SAT 93–100; BMI 36.6
--- NOTE | ~2021-09-28 | XR_ITS ---
EXAMINATION: XR shoulder RT min 2V EXAM DATE: 09/28/2021 08:32 INDICATION: Fall, right shoulder bruising. Initial encounter after injury. TECHNIQUE: The following right shoulder projections obtained: frontal projection with internal rotati on, frontal projection with external rotation, Grashey, and scapular Y view (4+ views). There is no prior study for comparison. FINDINGS: Right shoulder arthroplasty hardware in expected position. No dislocation or fracture. IMPRESSION: Intact right shoulder arthroplasty. Reviewed, dictated and finalized at location A. ERCIAL TRAILER TRUCK DRIVER
--- NOTE | ~2021-09-28 | XR_ITS ---
EXAMINATION: XR shoulder LT min 2V EXAM DATE: 09/28/2021 08:32 INDICATION: Fall, bilateral shoulder bruising. Initial encounter following injury, with pain of the l eft shoulder. TECHNIQUE: The following left shoulder projections obtained: frontal projection with internal rotatio n, frontal projection with external rotation, Grashey, and scapular Y view (4+ views). There is no p rior study for comparison. FINDINGS: There is left shoulder replacement, hardware in expected position. No acute fracture or dis location. IMPRESSION: Intact left shoulder arthroplasty. Reviewed, dictated and finalized at location A. R MARKETER
--- NOTE | ~2021-09-28 | US_ITS ---
EXAMINATION: US carotid duplex BI DATE: 09/28/2021 15:45 INDICATION: Syncope. TECHNIQUE: Grayscale, color Doppler, and pulsed Doppler images of the cervical carotid arteries were obtained. The degree of vessel stenosis is placed in one of the following categories: normal, <50%, 5 0-69%, >=70% but less than near-occlusion, near-occlusion, or total occlusion. Note that percent sten osis relative to normal distal artery lumen diameter is indirectly measured from velocity measurement s as described by Ganesh, et al. Radiology 2003; 229:340-346. COMPARISON: None. FINDINGS: RIGHT: The right common carotid artery (CCA) peak systolic velocity (PSV) is 100 cm/s. The right internal ca rotid artery (ICA) PSV is 87 cm/s. The right ICA end-diastolic velocity (EDV) is 14 cm/s. The right I CA/CCA PSV ratio is 0.9. Grayscale and color Doppler images yield an estimate of <50% diameter reduct ion from plaque in the ICA. There is antegrade flow in the right vertebral artery. LEFT: The left CCA PSV is 106 cm/s. The left ICA PSV is 73 cm/s. The left ICA EDV is 29 cm/s. The left ICA/ CCA PSV ratio is 0.7. Grayscale and color Doppler images yield an estimate of <50% diameter reduction from plaque in the ICA. There is antegrade flow in the left vertebral artery. IMPRESSION: 1. <50% stenosis in the right internal carotid artery. 2. <50% stenosis in the left internal carotid artery. Reviewed, dictated and finalized at location A. IGERATION PLANT CORK INSULATOR
--- NOTE | ~2021-09-28 | XR_ITS ---
EXAMINATION: XR chest 1V portable EXAM DATE: 09/28/2021 07:43 INDICATION: Syncope, weakness. History atrial fibrillation. TECHNIQUE: Portable AP frontal chest x-ray was obtained. Comparison is made to prior examination from 09/11/2021. FINDINGS: The lungs are clear. There are no pleural effusions. Cardiac silhouette is prominent but magnified on this AP technique. There is no pneumothorax suspected. Bilateral shoulder replacement s. IMPRESSION: No acute cardiopulmonary findings. Reviewed, dictated and finalized at location A. R
--- NOTE | ~2021-09-28 | XR_ITS ---
EXAMINATION: XR chest 1V portable DATE: 10/01/2021 11:16 INDICATION: Pacemaker insertion TECHNIQUE: frontal view of the chest was obtained. COMPARISON: Chest radiograph dated 09/28/2021 FINDINGS: New left pectoral single lead cardiac pacemaker with lead tip projecting over the apex of the right v entricle. Lungs remain clear with no focal airspace opacities, pulmonary edema, pleural effusion or p neumothorax. The cardiomediastinal silhouette is normal. Bilateral total shoulder arthroplasties. IMPRESSION: 1. No acute cardiopulmonary disease post single lead cardiac pacemaker placement which is in expected position. Reviewed, dictated and finalized at location B. BEAUTICIAN IMPRESSION: 1. No acute cardiopulmonary disease post single lead cardiac pacemaker placemen t which is in expected position.
--- NOTE | ~2021-09-28 | CT_ITS ---
EXAMINATION: CT brain wo con EXAM DATE: 09/28/2021 08:20 INDICATION: Multiple syncopal episodes. Hit head 4 days ago. On blood thinners. TECHNIQUE: Spiral CT of the head was performed without contrast. Axial, coronal and sagittal images were reviewed. The dose-length product (DLP) for this examination was 605.33 mGy-cm. The exposure w as tailored according to patient size, and iterative reconstruction (ASIR) was used as additional dos e reduction technique. There is no prior study for comparison. FINDINGS: There is no acute intraparenchymal hemorrhage. No evidence of intraparenchymal brain mass lesion. No evidence of acute infarction. Please note that initial head CT has limited sensitivity f or small or acute infarctions. There is mild periventricular and subcortical hypodensity, nonspecific but probably related to small vessel ischemic disease. There is mild to moderate prominence of the sulci and ventricles related to cerebral atrophy. There is intracranial carotid arteriosclerosis. There are no extra-axial collections. There is no mass effect or midline shift. Patient has had bi lateral ocular lens surgery. Soft tissue is unremarkable. The visualized sinuses and mastoid air ce lls are well aerated. IMPRESSION: 1. No acute intracranial findings. 2. Chronic age related findings. Reviewed, dictated and finalized at location A. ANIC HELPER
--- NOTE | ~2021-09-28 | XR_ITS ---
EXAMINATION: XR chest 2V DATE: 10/02/2021 10:37 INDICATION: Pacer placement. TECHNIQUE: Frontal and lateral views of the chest were obtained. COMPARISON: Chest single view 10/01/2021, CT abdomen and pelvis 08/04/2020 FINDINGS: There is mild atelectasis in lingula. No pleural effusion or pneumothorax. The heart size i s normal. There is a left chest pacer with lead in right ventricle. There are bilateral shoulder arth roplasties. IMPRESSION: 1. Mild atelectasis in lingula. Reviewed, dictated and finalized at location A. ENTICE ELECTRICIAN
--- NOTE | 2021-09-28 07:29 | ECG_ITS ---
Measurements Intervals [place] Rate: 99 P: PA: 0 QRS: 85 QRSD: 112 T: 0 QT: 370 QTc: 475 Interpretive Statements ATRIAL FIBRILLATION INCOMPLETE RIGHT BUNDLE BRANCH BLOCK BASELINE ARTIFACT- II, III, AVR, AVL, AVF ABNORMAL ECG Electronically Signed On 09-28-2021 10:42:19 [employer]RO[employer] WORKER by Flako Whiteside D.O.
--- NOTE | 2021-09-28 07:37 | ED.GENADULT ---
HPI - General Adult General Chief complaint: Syncope Stated complaint: mult syncopal episode Time Seen by Provider: 09/28/21 07:31 Source: RN notes reviewed History of Present Illness HPI narrative: Patient presents emergency department from home for syncope. Patient states he has had approximately 8 syncopal episodes over the past 1 week. States that these episodes can occur while he has both standing or sitting or laying he states he will be like he becomes lightheaded and weak any falls he states he never believes he fully loses consciousness he denies any chest pain or feeling of his heart racing with the symptoms he denies any headache shortness of breath abdominal pain nausea vomiting or any other symptoms. Patient states he does have a history of atrial fibrillation is on Coumadin he is followed by Dr. Sorto at [facility]. Patient denies any symptoms at this time Related Data Home Medications Medication Instructions Recorded Confirmed finasteride 5 mg tablet 5 mg PO HS 08/21/19 09/12/21 furosemide 40 mg tablet 40 mg PO BID 08/21/19 09/12/21 tamsulosin 0.4 mg capsule 0.4 mg PO HS 03/14/20 09/12/21 metolazone 5 mg tablet 5 mg PO DAILY 07/31/21 09/12/21 spironolactone 25 mg tablet 100 mg PO QAM tablet 07/31/21 09/12/21 allopurinol 100 mg PO BID 08/05/21 09/12/21 atorvastatin 40 mg PO DAILY 08/05/21 09/12/21 clopidogrel 75 mg PO DAILY 08/05/21 09/12/21 glyburide 2.5 mg PO DAILY 08/05/21 09/12/21 linaclotide [Linzess] 290 mcg PO DAILY 08/05/21 09/12/21 warfarin 4 mg PO DAILY 08/05/21 09/12/21 Allergies Allergy/AdvReac Type Severity Reaction Status Date / Time No Known Allergies Allergy Verified 09/12/21 08:27 Review of Systems Review of Systems: Gen.: Denies fevers or chills Eyes: Denies eye pain or visual change ENT: Denies congestion Respiratory: Denies shortness of breath or cough CV see HPI GI: Denies abdominal pain nausea, emesis or diarrhea Musculoskeletal: Denies back pain or muscle pain Neuro: Denies numbness, tingling, weakness or focal weakness Skin: Denies rash Except as documented, all other systems reviewed and negative [facility] Past Medical History Medical History A-fib BPH (benign prostatic hyperplasia) Cardiomyopathy Chronic congestive heart failure CKD (chronic kidney disease) stage 3, GFR 30-59 ml/min Degenerative disc disease Diabetes Hypertension Osteoarthritis Peripheral neuropathy Right hip pain Surgical History Surgical History H/O cataract extraction History of arthroplasty of left shoulder History of total hip replacement Right side S/p bilateral shoulder joint replacement Family History Family History Father Family history of malignant neoplasm of stomach at the age of 59 Mother Cancer Social History Social History Social History: uses cane, still drives. He lives with his in a duplex. His is the durable power employment attorney for healthcare. The patient is a full code. He has 2 children. He is retired from [employer]. The patient smoked a pack a cigarettes a day and quit 52 years ago. No alcohol or illicit drugs. Tobacco type: cigarettes Alcohol intake: never Substance use: never Substance use type: does not use Gender identity (if verbalized by the patient): Male Spiritual care concerns: No Exam Narrative: APPEARANCE: No acute distress, nontoxic, resting in bed EYES: EOMI, PERRL HEENT: Normocephalic, atraumatic, OMM RESPIRATORY: No respiratory distress Clear to auscultation bilaterally with no rhonchi wheezing or rales. CARDIOVASCULAR: Irregular irregular without murmurs rubs or gallops. ABDOMINAL: Soft, nontender, nondistended, no rebound or guarding MUSCULOSKELETAl: Moves all extremities. No cl
[2021-09-28 07:55] LABS: Basophils Percent Auto 0.2 % (0.2-1.2); Eosinophils Absolute Auto 0.2 K/mm3 (0-0.3); Eosinophils Percent Auto 1.9 % (0-4.4); Hematocrit 36.8 % (42.0-52.0); Immature Granulocyte Absolute 0.08 K/mm3 (0.00-0.031); Immature Granulocyte Percent A 0.8 % (0-0.5); Lymphocytes Absolute Auto 0.87 K/mm3 (0.9-3.2); Lymphocytes Percent Auto 8.5 % (18.3-44.2); Mean Corpuscular HGB Conc 32.6 g/dl (32-36); Mean Corpuscular Hemoglobin 30.4 pg (26-34); Mean Corpuscular Volume 93.2 fl (80-100); Mean Platelet Volume 10.4 fl (7.4-10.4); Monocytes Absolute Auto 0.8 K/mm3 (0.1-0.6); Monocytes Percent Auto 7.4 % (2.6-8.5); Neutrophils Absolute Auto 8.3 K/mm3 (1.3-6.7); Neutrophils Percent Auto 81.2 % (45.5-73.1); Platelet Count Result 236 k/mm3 (150-375); Red Blood Count 3.95 M/mm3 (4.6-6.20); Red Cell Distribution Width 13.5 % (11.5-14.5); White Blood Count 10.3 K/mm3 (4.5-10.0)
[2021-09-28 08:00] LABS: Alanine Aminotransferase 32 U/L (4-50); Albumin Level 3.6 g/dL (3.5-5.1); Alkaline Phosphatase 122 U/L (38-126); Anion Gap 10 mmol/L (8-16); Aspartate Amino Transferase 49 U/L (17-59); Bilirubin,Total 0.7 mg/dL (0.2-1.3); Blood Urea Nitrogen 74 mg/dL (9-20); Calcium 8.6 mg/dL (8.4-10.2); Carbon Dioxide 25 mmol/L (22-30); Chloride 96 mmol/L (98-107); Estimated CRCL calculation 41 ml/min; Estimated Glomerular Filt Rate 42; Glucose 264 mg/dL (65-110); Potassium 3.2 mmol/L (3.4-5.0); Sodium 131 mmol/L (137-145)
[2021-09-28 08:22] LABS: Troponin I < 0.012 ng/mL (0.000-0.034)
[2021-09-28 09:32] LABS: INR 3.1; Prothrombin Time 31.2 Seconds (11.1-14.7)
[2021-09-28 09:33] LABS: Partial Thromboplastin Time 55.5 SECONDS (22.3-36.8)
[2021-09-28 09:40] LABS: Add Urine Microscopic? YES; Appearance Urine Cloudy (Clear); Bacteria Urine Trace /hpf; Bilirubin Urine Negative (Negative); Blood Urine Negative (Negative); Color Urine Yellow (Yellow); Glucose Urine UA Negative (Negative); Hyaline Casts Urine 15-19 /lpf; Ketones Urine Negative (Negative); Leukocyte Esterase Ur 2+ LEU/UL (Negative); Mucus Urine Rare /lpf; Nitrate Urine Negative (Negative); Protein Urine Negative (Negative); RBC Urine 0-2 /hpf (0-2); Squamous Epithelial Cell Urine Rare /hpf (Few); Urobilinogen Urine Negative mg/dL (<2.0); WBC Urine >75 /hpf
[2021-09-28] MEDS: POTASSIUM CHLORIDE 20 MEQ TABLET PO (10:06)
--- NOTE | 2021-09-28 12:36 | PC.NURSE ---
ordered food tray @[id number]
[2021-09-28 12:58] LABS: Troponin I < 0.012 ng/mL (0.000-0.034)
--- NOTE | 2021-09-28 14:40 | PM.CNCAR ---
Assessment and Plan Additional Plan This is an 81-year-old man with: Recent onset of syncopal episodes. Etiology of this has not yet to be established but he is in chronic atrial fibrillation and certainly could have developed AV node dysfunction in be having problematic pauses. That remains to be seen. Obviously he does have evidence of the AV node dysfunction as he is on no medication at all to provide heart rate control. He has never had a syncopal episode however until about a week ago. The last episode was last evening. After calling his cannery tender engineer at [place] to receive advice he was advised to come to the emergency room this morning for evaluation and so he is here at this time. We will place his Coumadin on hold for now for the possible eventuality that he will need to have a pacemaker device implanted. We will observe his telemetry with you. Anti-platelet therapy with clopidogrel needs to be continued as his PCI was done in May of 2021. History of Present Illness History of Present Illness Consult date/time: 09/28/21 14:40 Consult reason: atrial fibrillation Reason For Visit: Syncope, Renal Insufficency Narrative: This is an 81-year-old man I am seeing in the emergency room at the [facility] he is being admitted to the hospital with the recent development of frequent syncopal episodes. The patient is unknown to me prior to this consultation. According to the patient in the records he has a history of atrial fibrillation for at least about 15 years. He has been followed by his PCP here in [place] as well as by cannery tender engineer at [place], Dr. Sorto. He recently underwent additional evaluation at [place] because of some increasing shortness of breath and a decline in his left ventricular ejection fraction to about 40-45% when previously was apparently higher than that. His evaluation included right and left heart catheterization at [place] back in May of 2021. His hemodynamics were not significantly out of line his cardiac output was in the lower range at 4.5 liters/minute. He was found to have moderate disease in the LAD prior to and distal to a diagonal branch. He is not and was not having any chest pain per se that he can recall. He underwent treatment of his coronary lesions with stenting receiving 2 [place] drug-eluting stents with good anatomical result. The patient states he could not really tell any symptomatic change or difference following the procedure. He continues to be bothered by problematic low back pain which is his principal health complaint in the last year or so. 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 He takes Coumadin for anticoagulation INR today is 3.1. He does have some chronic lower extremity edema. He is not known to have any significant peripheral vascular disease from what I understand. Review of Systems Constitutional: Constitutional: Reports weakness Eyes: Eyes: Reports no additional eye complaints ENT: Reports system reviewed and no additional complaints, except as documented Cardiovascular: Cardiovascular: Reports no additional cardiovascular complaints Respiratory: Respiratory: Reports dyspnea on exertion Gastrointestinal: Gastrointestinal: Reports no additional gastrointestinal complaints Musculoskeletal: Musculoskeletal: Reports as per HPI and Reports back pain Integumentary/Breasts: Skin/Breast: Reports system reviewed and no additional complaints, except as docu Neurologic: Reports system reviewed and no additional complaints, except as documented Endocrine: Endocrine: Reports no additional endocrine complaints Hematologic/Lymphatic: Hematologic/Lymphatic: Reports no additional hematologic/lymphatic complaints Allergic/Immunolog
--- NOTE | 2021-09-28 14:44 | PM.IMHP ---
H&P: HPI History of Present Illness Date/Time: 09/28/21 14:44 Chief Complaint: Syncope Narrative: Patient is 81 years old male with past medical history of chronic atrial fibrillation, coronary artery disease, dyslipidemia, diabetes, arthritis and chronic low back pain was admitted through the emergency with a complaint that patient have more than 8 episodes of syncope at home. Patient denies getting any warning for passing out. Patient denies shortness of breath or chest pain. Each episode of syncopal last for few seconds. Patient never lost complete consciousness. Patient denies any other complaints at present time. Review of Systems Review of Systems: All systems reviewed & are unremarkable except as noted in HPI and below (the history and physical examination) [facility] Past Medical History Medical History A-fib BPH (benign prostatic hyperplasia) Cardiomyopathy Chronic congestive heart failure CKD (chronic kidney disease) stage 3, GFR 30-59 ml/min Degenerative disc disease Diabetes Hypertension Osteoarthritis Peripheral neuropathy Right hip pain Surgical History Surgical History H/O cataract extraction History of arthroplasty of left shoulder History of total hip replacement Right side S/p bilateral shoulder joint replacement Family History Family History Father Family history of malignant neoplasm of stomach at the age of 59 Mother Cancer Social History Social History Social History: uses cane, still drives. He lives with his in a duplex. His is the durable power pairer inspector for healthcare. The patient is a full code. He has 2 children. He is retired from [employer]. The patient smoked a pack a cigarettes a day and quit 52 years ago. No alcohol or illicit drugs. Tobacco type: cigarettes Alcohol intake: never Substance use: never Substance use type: does not use Gender identity (if verbalized by the patient): Male Spiritual care concerns: No Meds Home Medications and Allergies Home Medications Medication Instructions Recorded Confirmed Type finasteride 5 mg tablet 5 mg PO HS 08/21/19 09/12/21 History furosemide 40 mg tablet 40 mg PO BID 08/21/19 09/12/21 History tamsulosin 0.4 mg capsule 0.4 mg PO HS 03/14/20 09/12/21 History compression socks, large #2 ea 08/05/20 09/12/21 Rx pramipexole 1 mg tablet 2 mg PO QPM #180 tablet 10/14/20 09/12/21 Rx metolazone 5 mg tablet 5 mg PO DAILY 07/31/21 09/12/21 History spironolactone 25 mg tablet 100 mg PO QAM tablet 07/31/21 09/12/21 History allopurinol 100 mg PO BID 08/05/21 09/12/21 History atorvastatin 40 mg PO DAILY 08/05/21 09/12/21 History clopidogrel 75 mg PO DAILY 08/05/21 09/12/21 History glyburide 2.5 mg PO DAILY 08/05/21 09/12/21 History linaclotide [Linzess] 290 mcg PO DAILY 08/05/21 09/12/21 History warfarin 4 mg PO DAILY 08/05/21 09/12/21 History docusate sodium 100 mg capsule 100 mg PO BID #60 cap 09/12/21 09/12/21 Rx lidocaine 4 % topical cream 1 applic TOPICAL QID PRN #30 g 09/12/21 09/12/21 Rx hydrocodone 7.5 mg-acetaminophen 1 tablet PO Q8H PRN #120 tablet 09/16/21 Rx 325 mg tablet Allergies Allergy/AdvReac Type Severity Reaction Status Date / Time No Known Allergies Allergy Verified 09/12/21 08:27 Vital Signs Vital Signs - 24 hr 09/28/21 07:25 09/28/21 09:17 09/28/21 09:19 Temperature 36.4 C Pulse Rate 100 90 93 Respiratory Rate 16 Blood Pressure 122/70 97/64 L 99/67 L Pulse Oximetry 93 09/28/21 09:21 09/28/21 12:11 Temperature Pulse Rate 99 103 H Respiratory Rate Blood Pressure 97/60 L 108/74 Pulse Oximetry 97 Exam Narrative: Gen.: Denies fevers or chills Eyes: Denies eye pain or visual change ENT: Denies congestion Respiratory: Denies shortness of b
[2021-09-28 16:50] LABS: Troponin I < 0.012 ng/mL (0.000-0.034)
--- NOTE | 2021-09-28 19:38 | PC.NURSE ---
This patient, En Wilson, was admitted to IMU Room 207-01. Patient/family oriented to hospital policies and general routines including ID bracelet, bed and alarms, visiting hours, pain management, procedures, bathroom and other care routines, personal items, smoking policy, room service/diet, and visiting hours. Information on how to activate the Rapid Response Team has been discussed. Patient/Family are encouraged to report perceived risks to care and to ask questions if they do not understand what they are told or what they should do.
[2021-09-28] MEDS: SODIUM CHLORIDE 0.9% IV 1,000 ML 80 ML IV CONT (21:44)
[2021-09-29] VITALS (15 sets, daily range): BP systolic 97–145; BP diastolic 62–96; PULSE 32–141; RESP 18–20; TEMP 36.3–37; O2SAT 97–99
[2021-09-29] MEDS: HYDROcodone/acetaminophen (*CRX) 7.5-325 MG TABLET 1 TAB PO ×2 (02:29→20:16)
[2021-09-29] MEDS: FINASTERIDE 5 MG TABLET PO ×2 (03:30→20:17)
[2021-09-29] MEDS: PRAMIPEXOLE 1 MG TABLET 2 MG PO ×2 (03:30→17:07)
[2021-09-29] MEDS: CLOPIDOGREL BISULFATE 75 MG TABLET PO ×2 (03:30→20:17)
[2021-09-29] MEDS: TAMSULOSIN HCL 0.4 MG CAPSULE PO ×2 (03:31→20:16)
[2021-09-29] MEDS: allopurinoL 100 MG TABLET 200 MG PO ×2 (03:31→17:07)
[2021-09-29 05:32] LABS: Basophils Percent Auto 0.3 % (0.2-1.2); Eosinophils Absolute Auto 0.2 K/mm3 (0-0.3); Eosinophils Percent Auto 2.4 % (0-4.4); Immature Granulocyte Absolute 0.06 K/mm3 (0.00-0.031); Immature Granulocyte Percent A 0.7 % (0-0.5); Lymphocytes Absolute Auto 1.07 K/mm3 (0.9-3.2); Mean Corpuscular HGB Conc 31.6 g/dl (32-36); Mean Corpuscular Hemoglobin 30.7 pg (26-34); Mean Corpuscular Volume 97.2 fl (80-100); Mean Platelet Volume 10.7 fl (7.4-10.4); Monocytes Absolute Auto 0.7 K/mm3 (0.1-0.6); Monocytes Percent Auto 7.5 % (2.6-8.5); Neutrophils Absolute Auto 6.9 K/mm3 (1.3-6.7); Neutrophils Percent Auto 77.1 % (45.5-73.1); Platelet Count Result 249 k/mm3 (150-375); Red Blood Count 3.91 M/mm3 (4.6-6.20); Red Cell Distribution Width 13.5 % (11.5-14.5); White Blood Count 8.9 K/mm3 (4.5-10.0)
[2021-09-29 05:43] LABS: INR 3.6; Prothrombin Time 34.5 Seconds (11.1-14.7)
[2021-09-29 05:53] LABS: Anion Gap 6 mmol/L (8-16); Blood Urea Nitrogen 57 mg/dL (9-20); Calcium 8.4 mg/dL (8.4-10.2); Carbon Dioxide 27 mmol/L (22-30); Chloride 99 mmol/L (98-107); Estimated CRCL calculation 57 ml/min; Estimated Glomerular Filt Rate > 60; Glucose 148 mg/dL (65-110); Potassium 3.5 mmol/L (3.4-5.0); Sodium 132 mmol/L (137-145)
[2021-09-29 08:44] LABS: Glucose Point of Care 188 mg/dl (65-105)
--- NOTE | 2021-09-29 09:24 | PM.IMPN ---
Progress Note: A&P Assessment and Plan (1) Syncope: Code(s): R55 - Syncope and collapse Status: Acute Assessment and Plan: Workup of syncope, monitor heart rhythm, carotid Doppler, 2D echo and cardiology consult. (2) Acute UTI: Code(s): N39.0 - Urinary tract infection, site not specified Status: Acute Assessment and Plan: Urine culture and IV antibiotics. (3) Acute hypokalemia: Code(s): E87.6 - Hypokalemia Status: Acute Assessment and Plan: Replace and monitor. (4) Chronic congestive heart failure: Qualifiers: Heart failure type: unspecified Qualified Code(s): I50.9 - Heart failure, unspecified Code(s): I50.9 - Heart failure, unspecified Status: Acute Assessment and Plan: Continue current treatment with diuresis and medication. (5) Chronic renal insufficiency: Qualifiers: Chronic kidney disease stage: stage 2 (mild) Qualified Code(s): N18.2 - Chronic kidney disease, stage 2 (mild) Code(s): N18.9 - Chronic kidney disease, unspecified Status: Acute Assessment and Plan: Monitor closely (6) Arthritis: Code(s): M19.90 - Unspecified osteoarthritis, unspecified site Status: Acute Assessment and Plan: Continue pain medicine. (7) Essential hypertension: Code(s): I10 - Essential (primary) hypertension Status: Acute Assessment and Plan: Stable on medications (8) Chronic anticoagulation: Code(s): Z79.01 - terminal supervisor (current) use of anticoagulants Status: Acute Assessment and Plan: Will hold Coumadin for now in case pacemaker is needed. Additional Plan Patient is full code at present time. Patient is of stable with fluid in the hospital. September 29, 2021 Plan is to continue current treatment. Hold Coumadin. Cardiology was patient for possible pacemaker placement. Subjective Date/time seen: 09/29/21 09:24 Patient was seen during the morning rounds today. No syncopal episode overnight. No shortness of breath or chest pain. No abdominal pain, nausea, no vomiting. Mood stable. Review of Systems Review of Systems: All systems reviewed & are unremarkable except as noted in HPI and below (the history and physical examination) Exam Narrative: Gen.: Denies fevers or chills Eyes: Denies eye pain or visual change ENT: Denies congestion Respiratory: Denies shortness of breath or cough CV see HPI GI: Denies abdominal pain nausea, emesis or diarrhea Musculoskeletal: Denies back pain or muscle pain Neuro: Denies numbness, tingling, weakness or focal weakness Skin: Denies rash Except as documented, all other systems reviewed and negative Objective Data Vital Signs Vital Signs: Vital Signs - 24 hr 09/28/21 12:11 09/28/21 15:11 09/28/21 17:08 Temperature Pulse Rate 103 H 95 79 Respiratory Rate 16 17 Blood Pressure 108/74 124/83 132/111 H Pulse Oximetry 97 100 99 09/28/21 18:25 09/28/21 18:50 09/28/21 19:29 Temperature 36.1 C L Pulse Rate 102 H 88 34 L Respiratory Rate 16 20 Blood Pressure 97/62 L 114/68 Pulse Oximetry 99 98 09/28/21 20:00 09/28/21 22:00 09/28/21 23:51 Temperature 36.8 C 36.4 C Pulse Rate 75 89 77 Respiratory Rate 20 20 Blood Pressure 106/66 115/62 Pulse Oximetry 99 97 09/29/21 00:00 09/29/21 02:00 09/29/21 03:44 Temperature 36.3 C L Pulse Rate 77 96 84 Respiratory Rate 20 20 Blood Pressure 145/96 H Pulse Oximetry 97 98 09/29/21 04:00 09/29/21 04:02 09/29/21 04:30 Temperature Pulse Rate 68 32 L 32 L Respiratory Rate 20 Blood Pressure Pulse Oximetry 98 09/29/21 05:42 09/29/21 08:00 Temperature 36.8 C Pulse Rate 80 104 H Respiratory Rate 18 Blood Pressure 97/62 L Pulse Oximetry 99 Intake/Output Intake/Output: Intake & Output 09/26/21 09/27/21 09/28/21 09/29/21 23:59 23:59 23:59 23:59 Intake Total 50 350 Output Total 680 700 Balance
[2021-09-29] MEDS: ATORVASTATIN 40 MG TABLET PO (10:19)
[2021-09-29] MEDS: glyBURIDE 2.5 MG TABLET PO (10:19)
[2021-09-29] MEDS: FUROSEMIDE 40 MG TABLET PO ×2 (10:21→17:07)
[2021-09-29] MEDS: metOLazone 5 MG TABLET PO (10:21)
--- NOTE | 2021-09-29 11:56 | PM.PNCARD ---
Progress Note: A&P Additional Plan 81-year-old man with: Syncopal episode he has the picture of chronic atrial fib with a tachy-demetrio picture at times is tachycardic for the most part is well rate controlled but now at times is having significant asystolic pauses which undoubtedly are the reason for his syncope. Pacemaker implantation is indicated in this situation. He should have his Coumadin held which has already been done as of yesterday and pacemaker implanted when his INR BP is under 1.5. That will probably take several days as his INR today is 3.6. In the meantime I will contact his established diffuser operator, Dr. Sorto at [facility] to discuss the concept of transferring him there for pacemaker implantation. That is the patient's preference. Patient understands that beds are in short supply in the current pandemic situation. Clopidogrel needs to be continued because of his relatively recent PCI to the LAD Isaac Grullon MD [facility] Subjective Date/time seen: Date of service: 09/29/21 11:56 Interval history: Follow-up visit in this 81-year-old man with: Recent onset of syncopal episodes admitted after being seen in the emergency room yesterday. Patient has chronic atrial fibrillation which does not require any medication for rate control. 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 We are seeing this on telemetry since admission. He does have some episodes of tachycardia generally well-controlled heart rate but also has significant bradycardia as well as some pauses. Longest pause seen on telemetry this morning was 4.4 seconds. Patient has a history of chronic atrial fibrillation is taking Coumadin also history of coronary disease with stenting of the LAD and May of 2021 at [facility] and is taking clopidogrel as anti-platelet therapy since that intervention. Has a history of mild LV systolic dysfunction with an ejection fraction of 40-45%. Today the patient is offering no new cardiac complaints. He did not have a syncopal episode this morning when he had the 4.2nd pause. He is complaining of chronic relatively severe low back pain. Told the patient of the indication for pacemaker implantation in that he certainly is not a candidate for that today as his INR is 3.6. Exam Const: General: no acute distress and uncomfortable Other: Pleasant elderly gentleman in distress because of back pain HENMT: Mouth: Yes moist mucous membranes Eyes: Sclera: sclerae normal Pupils: Equal, round and reactive pupils present Neck: Neck: supple and no JVD Resp: Effort & Inspection: normal respiratory effort Auscultation: clear to auscultation bilaterally Cardio: Rhythm: abnormal rhythm irregularly irregular GI: GI Palp: Yes Soft to palpation Auscultation: normal bowel sounds Skin: General skin exam: normal color Neuro: Cognition (Neuro): normal cognition Extrem: General: normal to inspection Objective Data Vital Signs Vital Signs: Vital Signs - 24 hr 09/28/21 12:11 09/28/21 15:11 09/28/21 17:08 Temperature Pulse Rate 103 H 95 79 Respiratory Rate 16 17 Blood Pressure 108/74 124/83 132/111 H Pulse Oximetry 97 100 99 09/28/21 18:25 09/28/21 18:50 09/28/21 19:29 Temperature 36.1 C L Pulse Rate 102 H 88 34 L Respiratory Rate 16 20 Blood Pressure 97/62 L 114/68 Pulse Oximetry 99 98 09/28/21 20:00 09/28/21 22:00 09/28/21 23:51 Temperature 36.8 C 36.4 C Pulse Rate 75 89 77 Respiratory Rate 20 20 Blood Pressure 106/66 115/62 Pulse Oximetry 99 97 09/29/21 00:00 09/29/21 02:00 09/29/21 03:44 Temperature 36.3 C L Pulse Rate 77 96 84 Respiratory Rate 20 20 Blood Pressure 145/96 H Pulse Oximetry 97 98 09/29/21 04:00 09/29/21 04:02 09/29/21 04:30 Temperature Pulse Rate 68 32 L 32 L Respiratory Rate 20 Blood Pressure Pulse Oximetry 98 09/29/21 05:42 09/29/21 08:00 09/29/21 10:00 Temperature 36.8 C Pulse Rate 80 141 H 101 H
[2021-09-29 12:02] LABS: Glucose Point of Care 346 mg/dl (65-105)
[2021-09-29] MEDS: INSULIN ASPART (*BKC) 100 UNITS/ML SUB-Q (12:51)
[2021-09-29] MEDS: SPIRONOLACTONE 50 MG TABLET 100 MG PO (12:51)
[2021-09-29 13:02] LABS: INR 2.8; Prothrombin Time 28.6 Seconds (11.1-14.7)
[2021-09-29] MEDS: PHYTONADIONE INJ 10 MG/ML AMP 5 MG SUB-Q (14:21)
[2021-09-29 16:06] LABS: Glucose Point of Care 157 mg/dl (65-105)
[2021-09-29 21:11] LABS: Glucose Point of Care 253 mg/dl (65-105)
[2021-09-30] VITALS (14 sets, daily range): BP systolic 95–108; BP diastolic 40–73; PULSE 69–132; RESP 18–24; TEMP 36.2–36.8; O2SAT 95–99
[2021-09-30] MEDS: HYDROcodone/acetaminophen (*CRX) 7.5-325 MG TABLET 1 TAB PO ×2 (04:05→20:23)
[2021-09-30 05:02] LABS: INR 2.4; Prothrombin Time 25.2 Seconds (11.1-14.7)
[2021-09-30] MEDS: glyBURIDE 2.5 MG TABLET PO (08:49)
[2021-09-30] MEDS: SPIRONOLACTONE 50 MG TABLET 100 MG PO (08:49)
[2021-09-30] MEDS: metOLazone 5 MG TABLET PO (08:50)
[2021-09-30] MEDS: ATORVASTATIN 40 MG TABLET PO (09:32)
[2021-09-30 10:21] LABS: Glucose Point of Care 193 mg/dl (65-105)
--- NOTE | 2021-09-30 10:40 | PM.PNCARD ---
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 Found to have significant pauses. Patient has been deemed to be an appropriate candidate for permanent pacemaker implant. -warfarin currently on hold. INR is somewhat fluctuating, and trending down gradually. In order to shorten the length of stay in the hospital, will give vitamin K 5 mg p.o. x1. Check INR in morning. Keep NPO from midnight in case INR has reached to the acceptable range for the package line relief operator to implant the pacemaker. -continue to monitor on telemetry. -discussed with the patient, and he is in agreement with the plan. Staff was updated. (2) A-fib: Qualifiers: Atrial fibrillation type: unspecified Qualified Code(s): I48.91 - Unspecified atrial fibrillation Code(s): I48.91 - Unspecified atrial fibrillation Status: Chronic Subjective Date/time seen: 09/30/21 10:40 Date of Service: 09/30/2021 Interval history: Patient reports back pain, chronic in nature. Denies chest pain or shortness of breath. No recurrent syncope. On telemetry, he is in AFib with RVR, heart rates in 100s. Exam Narrative: PHYSICAL EXAMINATION: GENERAL: Alert, oriented, no acute distress MENTAL STATUS: affect appropriate to mood EYES: Extraocular movements intact, no pallor EARS: External ears appear normal, hearing grossly normal NOSE: Normal and patent, no discharge MOUTH: Mucous membranes moist, tongue normal NECK: Supple, no JVD CHEST: Good respiratory effort, clear to auscultation HEART: Tachycardia, irregular rhythm ABDOMEN: Soft, nontender NEUROLOGICAL: Alert, oriented, normal speech, no gross motor deficits MUSCULOSKELETAL: No major deformity, no amputation EXTREMITIES: Mild edema with slight discoloration SKIN: no cyanosis PSYCHIATRIC: Normal mood, appropriate affect Objective Data Vital Signs Vital Signs: Vital Signs - 24 hr 09/29/21 12:00 09/29/21 14:00 09/29/21 16:00 Temperature 36.8 C 37.0 C Pulse Rate 124 H 109 H 110 H Respiratory Rate 20 18 Blood Pressure 113/73 112/67 Pulse Oximetry 98 98 09/29/21 18:00 09/29/21 20:00 09/29/21 21:21 Temperature 36.3 C L Pulse Rate 94 100 95 Respiratory Rate 20 Blood Pressure 107/62 Pulse Oximetry 97 09/30/21 00:00 09/30/21 02:00 09/30/21 04:00 Temperature 36.7 C 36.3 C L Pulse Rate 74 69 97 Respiratory Rate 20 20 Blood Pressure 104/58 L 108/65 Pulse Oximetry 99 97 09/30/21 06:00 09/30/21 08:00 Temperature 36.3 C L Pulse Rate 88 132 H Respiratory Rate 18 Blood Pressure 95/40 L Pulse Oximetry 98 Intake/Output Intake/Output: Intake & Output 09/27/21 09/28/21 09/29/21 09/30/21 23:59 23:59 23:59 23:59 Intake Total 50 2720 240 Output Total 680 2200 1650 Balance -630 520 -1410 Meds/Results Medications: Active Medications Generic Name Dose Route Start Last Admin Trade Name Freq PRN Reason Stop Dose Admin Hydrocodone Bitart/Acetaminophen 1 tab 09/29/21 01:24 09/30/21 04:05 Hydrocodone/Acetaminophen (*Crx) 7.5-325 Mg Tablet PO 1 tab Q8H PRN Administration pain 7-10 Allopurinol 200 mg 09/29/21 03:20 09/29/21 17:07 Allopurinol 100 Mg Tablet PO 200 mg DAILY@1700 WOJCIECH Administration Atorvastatin Calcium 40 mg 09/29/21 09:00 09/30/21 09:32 Atorvastatin 40 Mg Tablet PO 40 mg DAILY WOJCIECH Administration Clopidogrel Bisulfate 75 mg 09/29/21 02:50 09/29/21 20:17 Clopidogrel Bisulfate 75 Mg Tablet PO 75 mg HS WOJCIECH Administration Dextrose 12.5 gm 09/29/21 01:25 Dextrose 50% 25 Gm/50 Ml Syringe IV PUSH PRN PRN Hypoglycemia Protocol Docusate Sodium 100 mg 09/29/21 01:24 Docusate Sodium 100 Mg Capsule PO BID PRN Constipation Finasteride 5 mg 0
[2021-09-30 12:41] LABS: Glucose Point of Care 265 mg/dl (65-105)
[2021-09-30] MEDS: INSULIN ASPART (*BKC) 100 UNITS/ML SUB-Q (12:48)
[2021-09-30] MEDS: PHYTONADIONE 5 MG TABLET PO ×2 (12:49→20:22)
[2021-09-30 15:54] LABS: Glucose Point of Care 180 mg/dl (65-105)
[2021-09-30] MEDS: allopurinoL 100 MG TABLET 200 MG PO (17:01)
[2021-09-30] MEDS: PRAMIPEXOLE 1 MG TABLET 2 MG PO (17:01)
[2021-09-30] MEDS: FUROSEMIDE 40 MG TABLET PO (17:02)
[2021-09-30 17:38] LABS: INR 1.8; Prothrombin Time 20.1 Seconds (11.1-14.7)
--- NOTE | 2021-09-30 18:37 | PM.IMPN ---
Progress Note: A&P Assessment and Plan (1) Syncope: Code(s): R55 - Syncope and collapse Status: Acute Assessment and Plan: Workup of syncope, monitor heart rhythm, carotid Doppler, 2D echo and cardiology consult. 09/30/2021 Interval history:patient 81-year-old male with history of atrial fibrillation on warfarin had developed Bradytechy syndrome, patient states prior to coming to emergency depart he has had several syncopal episode and on Wednesday he had 3 episodes that brought him to hospital further evaluate patient is seen by division controller recommended pacemaker, patient is on warfarin INR is therapeutic patient is given vitamin K to reverse INR will continue to monitor and further recommendation to follow. (2) Acute UTI: Code(s): N39.0 - Urinary tract infection, site not specified Status: Acute Assessment and Plan: Urine culture and IV antibiotics. (3) Acute hypokalemia: Code(s): E87.6 - Hypokalemia Status: Acute Assessment and Plan: Replace and monitor. (4) Chronic congestive heart failure: Qualifiers: Heart failure type: unspecified Qualified Code(s): I50.9 - Heart failure, unspecified Code(s): I50.9 - Heart failure, unspecified Status: Acute Assessment and Plan: Continue current treatment with diuresis and medication. (5) Chronic renal insufficiency: Qualifiers: Chronic kidney disease stage: stage 2 (mild) Qualified Code(s): N18.2 - Chronic kidney disease, stage 2 (mild) Code(s): N18.9 - Chronic kidney disease, unspecified Status: Acute Assessment and Plan: Monitor closely (6) Arthritis: Code(s): M19.90 - Unspecified osteoarthritis, unspecified site Status: Acute Assessment and Plan: Continue pain medicine. (7) Essential hypertension: Code(s): I10 - Essential (primary) hypertension Status: Acute Assessment and Plan: Stable on medications (8) Chronic anticoagulation: Code(s): Z79.01 - intermodal customer service (current) use of anticoagulants Status: Acute Assessment and Plan: Will hold Coumadin for now in case pacemaker is needed. Subjective Date/time seen: 09/30/21 18:37 09/30/2021 Interval history:patient 81-year-old male with history of atrial fibrillation on warfarin had developed Bradytechy syndrome, patient states prior to coming to emergency depart he has had several syncopal episode and on Wednesday he had 3 episodes that brought him to hospital further evaluate patient is seen by division controller recommended pacemaker, patient is on warfarin INR is therapeutic patient is given vitamin K to reverse INR will continue to monitor and further recommendation to follow. Review of Systems Review of Systems: All systems reviewed & are unremarkable except as noted in HPI and below Exam Narrative: moderately obese Patient is comfortable, NAD HEENT: eyes are clear and none icteric LUNGS: normal respiratory effort HEART: RR S1S2 ABD: distended Lower extremities: no edema SKIN: nonjaundiced Neuro: grossly intact. Objective Data Vital Signs Vital Signs: Vital Signs - 24 hr 09/29/21 20:00 09/29/21 21:21 09/30/21 00:00 Temperature 97.4 F L 98.1 F Pulse Rate 100 95 74 Respiratory Rate 20 20 Blood Pressure 107/62 104/58 L Pulse Oximetry 97 99 09/30/21 02:00 09/30/21 04:00 09/30/21 06:00 Temperature 97.4 F L Pulse Rate 69 97 88 Respiratory Rate 20 Blood Pressure 108/65 Pulse Oximetry 97 09/30/21 08:00 09/30/21 10:00 09/30/21 12:00 Temperature 97.3 F L 98.3 F Pulse Rate 99 100 115 H Respiratory Rate 18 24 H Blood Pressure 95/40 L 104/73 Pulse Oximetry 98 96 09/30/21 14:00 09/30/21 16:00 09/30/21 18:00 Temperature 97.2 F L Pulse Rate 105 H 126 H 105 H Respiratory Rate 24 H Blood Pressure 97/65 L Pulse Oximetry 96 Intake/Output Intake/Output: Intake & Output 09/27/21 09/28/21 09/29/21
[2021-09-30] MEDS: TAMSULOSIN HCL 0.4 MG CAPSULE PO (20:23)
[2021-09-30] MEDS: FINASTERIDE 5 MG TABLET PO (20:23)
[2021-09-30] MEDS: CLOPIDOGREL BISULFATE 75 MG TABLET PO (20:24)
[2021-09-30 20:29] LABS: Glucose Point of Care 245 mg/dl (65-105)
[2021-10-01] VITALS (20 sets, daily range): BP systolic 97–128; BP diastolic 50–77; PULSE 78–115; RESP 16–20; TEMP 36.3–36.8; O2SAT 95–99
[2021-10-01] MEDS: HYDROcodone/acetaminophen (*CRX) 7.5-325 MG TABLET 1 TAB PO ×3 (04:56→20:38)
[2021-10-01 05:16] LABS: Hematocrit 40.7 % (42.0-52.0); Mean Corpuscular HGB Conc 31.9 g/dl (32-36); Mean Corpuscular Hemoglobin 30.8 pg (26-34); Mean Corpuscular Volume 96.4 fl (80-100); Platelet Count Result 233 k/mm3 (150-375); Red Blood Count 4.22 M/mm3 (4.6-6.20); Red Cell Distribution Width 13.7 % (11.5-14.5); White Blood Count 7.7 K/mm3 (4.5-10.0)
[2021-10-01 05:24] LABS: Anion Gap 7 mmol/L (8-16); Blood Urea Nitrogen 50 mg/dL (9-20); Calcium 8.9 mg/dL (8.4-10.2); Carbon Dioxide 29 mmol/L (22-30); Chloride 97 mmol/L (98-107); Estimated CRCL calculation 49 ml/min; Estimated Glomerular Filt Rate 53; Glucose 153 mg/dL (65-110); Potassium 3.5 mmol/L (3.4-5.0); Sodium 133 mmol/L (137-145)
[2021-10-01 05:25] LABS: INR 1.3
--- NOTE | 2021-10-01 09:38 | WPDMODSED ---
Moderate Sedation Note-Pt Data Patient Data Diagnosis: Syncope with significant bradycardic pauses with chronic atrial fib Present Complaint: Syncope Procedure to be performed/Plan: Implantation of permanent pacemaker Allergies Allergy/AdvReac Type Severity Reaction Status Date / Time No Known Allergies Allergy Verified 09/12/21 08:27 Home Medications Medication Instructions Recorded Confirmed Type finasteride 5 mg tablet 5 mg PO HS 08/21/19 09/28/21 History furosemide 40 mg tablet 40 mg PO BID 08/21/19 09/28/21 History tamsulosin 0.4 mg capsule 0.4 mg PO HS 03/14/20 09/28/21 History pramipexole 1 mg tablet 2 mg PO QPM #180 tablet 10/14/20 09/28/21 Rx metolazone 5 mg tablet 5 mg PO DAILY 07/31/21 09/28/21 History spironolactone 25 mg tablet 100 mg PO QAM tablet 07/31/21 09/28/21 History allopurinol 100 mg PO BID 08/05/21 09/28/21 History atorvastatin 40 mg PO DAILY 08/05/21 09/28/21 History clopidogrel 75 mg PO HS 08/05/21 09/28/21 History glyburide 2.5 mg PO DAILY 08/05/21 09/28/21 History warfarin 4 mg PO DAILY 08/05/21 09/28/21 History lidocaine 4 % topical cream 1 applic TOPICAL QID PRN #30 g 09/12/21 09/28/21 Rx hydrocodone 7.5 mg-acetaminophen 1 tablet PO Q8H PRN #120 tablet 09/16/21 09/28/21 Rx 325 mg tablet docusate sodium [Colace] 100 mg PO BID PRN 09/28/21 09/28/21 History linaclotide 290 mcg capsule 290 mcg PO DAILY #30 cap 09/29/21 09/29/21 Rx Current Medications: Active Medications Hydrocodone Bitart/Acetaminophen (Hydrocodone/Acetaminophen (*Crx) 7.5-325 Mg Tablet) 1 tab PO Q8H PRN PRN Reason: pain 7-10 Last Admin: 10/01/21 04:56 Dose: 1 tab Documented by: Allopurinol (Allopurinol 100 Mg Tablet) 200 mg PO DAILY@1700 WOJCIECH Last Admin: 09/30/21 17:01 Dose: 200 mg Documented by: Atorvastatin Calcium (Atorvastatin 40 Mg Tablet) 40 mg PO DAILY [facility] Last Admin: 09/30/21 09:32 Dose: 40 mg Documented by: Clopidogrel Bisulfate (Clopidogrel Bisulfate 75 Mg Tablet) 75 mg PO [facility] Last Admin: 09/30/21 20:24 Dose: 75 mg Documented by: Dextrose (Dextrose 50% 25 Gm/50 Ml Syringe) 12.5 gm IV PUSH PRN PRN; Protocol PRN Reason: Hypoglycemia Docusate Sodium (Docusate Sodium 100 Mg Capsule) 100 mg PO BID PRN PRN Reason: Constipation Finasteride (Finasteride 5 Mg Tablet) 5 mg PO [facility] Last Admin: 09/30/21 20:23 Dose: 5 mg Documented by: Furosemide (Furosemide 40 Mg Tablet) 40 mg PO BID [facility] Last Admin: 09/30/21 17:02 Dose: 40 mg Documented by: Glucagon (Glucagon For Inj 1 Mg Vial) 1 mg IM PRN PRN; Protocol PRN Reason: Hypoglycemia Glucose (Glucose Oral Gel 15 Gm Of Glucse In 37.5 Gm Tube) 15 gm PO PRN PRN; Protocol PRN Reason: Hypoglycemia Glyburide (Glyburide 2.5 Mg Tablet) 2.5 mg PO DAILY@0800 [facility] Last Admin: 09/30/21 08:49 Dose: 2.5 mg Documented by: Ceftriaxone Sodium/Dextrose (Rocephin 1 Gm/D5w 50 Ml) 1 gm in 50 mls @ 100 mls/hr IVPB Q24H [facility] Last Infusion: 09/30/21 09:19 Dose: Infused Documented by: Dextrose (Dextrose 5% 1,000 Ml) 1,000 mls @ 100 mls/hr IVPB PRN PRN; Protocol PRN Reason: Hypoglycemia Insulin Aspart (Insulin Aspart (*Bkc) 100 Units/Ml) 3 - 6 units SUB-Q TIDWM [facility]; Protocol Last Admin: 09/30/21 16:09 Dose: Not Given Documented by: Metolazone (Metolazone 5 Mg Tablet) 5 mg PO DAILY [facility] Last Admin: 09/30/21 08:50 Dose: 5 mg Documented by: Miscellaneous Information (Lidocain 4% Cream- Nonformulary. Please Obtain Home Supply Or Consider Switching To A 5% L) 0 each XX CLARIFY [facility] Stop: 10/29/21 02:34 Last Admin: 09/29/21 02:56 Dose: Not Given Documented by: Non-Formulary Medication (Lidocaine) 1 applic TOPICAL QID PRN PRN Reason: pain Linaclotide [Linzess (] 145 Mcg Capsule) 2 mcg BY MOUTH DAILY [facility] Stop: 10/31/21 08:59 Pramipexole Dihydrochloride (Pramipexole 1 Mg Tablet) 2 mg PO QPM [facility] Last Admin: 09/30/21 17:01 Dose: 2 mg Documented by: Spironolactone (Spironolactone 50 Mg Tablet) 100 mg PO QAM [facility] Last Admin: 09/30/21 08:49 Dose: 100
--- NOTE | 2021-10-01 09:40 | WPDCARDPROC ---
Cardiac Cath Procedure Note Date of procedure:: 10/01/21 Performing physician:: Isaac Grullon MD Indication:: Syncope with AFib and significant asystolic pauses Brief clinical history:: This is an 81-year-old man with chronic atrial fibrillation who has been managed elsewhere with anticoagulation. He has not required any rate controlling medications. He presented to the hospital with recurrent syncopal episodes for about 1 week prior to admission. Telemetry demonstrates atrial fibrillation but also significant asystolic pauses the longest of which has been 4.6 seconds. In this setting implantation of biventricular pacemaker device was recommended. Procedure Procedure performed:: Implantation of permanent ventricular pacemaker Sedation/Medication given:: Fentanyl 25 mg Versed 2 mg Access site:: Left subclavian vein Estimated blood loss:: 15 cc Procedure note:: Patient was brought to the cardiac catheterization lab in the postabsorptive state the left anterior chest wall was prepped and draped in the usual sterile fashion. Anesthesia was given with 1% lidocaine about 1 in below the clavicle. An incision was then made in this area from the midclavicular line to the deltopectoral groove. Following this sharp and blunt dissection was used to separate the subcutaneous tissue down to the level of the prepectoral fascia. Electrocautery was used to provide cutaneous hemostasis. Following this blunt dissection was used to create a pacemaker pocket inferior to the incision. Attention was then turned to venous access. The patient was placed under fluoroscopy and using the insertion kit the 5th left subclavian vein was easily punctured in the J guidewire was advanced under fluoroscopic visualization to the level of the right atrium. Following this the 7 Wolof pacemaker SafeSheath introducer was advanced into the venous circulation the wire and dilator were then withdrawn. Through this device the pacemaker lead detailed below was placed into the venous circulation into the level of the right atrium. The sheath was then peeled away. The straight stylet was removed from the lead and I used a 3 cc syringe to form a J-tip on the stylet. This was then used to steer they lead through the right ventricle out to the pulmonary artery position. This was then replaced with a straight stylet. The lead was withdrawn and placed into the right ventricular apical position. Appropriate pacing and sensing numbers were documented using the analyzer. The fixation screw was then deployed and the lead was with stylet was withdrawn. After this the lead was then tested again using the analyzer. The lead was then fixed to the base of the pocket using the suture sleeve and 2-0 silk ties. The retained sponge was removed from the pocket and the pocket was irrigated with Ancef infused saline. Following this the pacemaker generator connected to the lead. The atrial port was occluded using a pin plug. The lead was then placed into the newly created pocket and the pocket was then closed in layers using 3-0 Vicryl for the subcutaneous tissue and 4-0 Vicryl in a running subcuticular fashion for the skin. The wound was dressed with an Aquacel dressing and the patient's left arm was placed in an immobilizer he was taken to the holding area for post implant recovery. The procedure was well tolerated and uncomplicated. Post implant chest x-ray and ECGs were ordered. Postop antibiotics and analgesics were ordered as well. Findings:: The patient received a Medtronic permanent pacemaker model WID R01 serial [id number]. Device is programmed in the VVIR mode lower rate lower rate limit 60 upper rate limit 130. The ventricular lead is a Medtronic screw-in bipolar lead model WIDR01, serial number [id number]. The R-waves are sensed at 5.8 mV threshold 0.6 volts at 0.4 milliseconds pacing impedance 608 Ohms. Conclusion:: 1. Successful uncomplicated implantation of permanent single-chamber pacemak
--- NOTE | 2021-10-01 10:17 | ECG_ITS ---
Measurements Intervals [place] Rate: 91 P: [place]: 0 QRS: 87 QRSD: 108 T: 50 QT: 374 QTc: 461 Interpretive Statements ATRIAL FIBRILLATION INCOMPLETE RIGHT BUNDLE BRANCH BLOCK ABNORMAL ECG Electronically Signed On 10-01-2021 10:39:22 FURNACE PROCESS SUPERVISOR by Flako Whiteside D.O.
[2021-10-01] MEDS: SODIUM CHLORIDE 0.9% IV 1,000 ML 50 ML IV CONT (11:46)
[2021-10-01] MEDS: ATORVASTATIN 40 MG TABLET PO (11:47)
[2021-10-01] MEDS: SPIRONOLACTONE 50 MG TABLET 100 MG PO (11:47)
[2021-10-01] MEDS: FUROSEMIDE 40 MG TABLET PO ×2 (11:47→17:28)
[2021-10-01] MEDS: glyBURIDE 2.5 MG TABLET PO (11:47)
[2021-10-01] MEDS: Linaclotide [Linzess] 145 mcg capsule 2 EACH BY MOUTH (11:47)
[2021-10-01] MEDS: metOLazone 5 MG TABLET PO (11:47)
[2021-10-01] MEDS: INSULIN ASPART (*BKC) 100 UNITS/ML SUB-Q (12:56)
[2021-10-01 13:05] LABS: Glucose Point of Care 239 mg/dl (65-105)
--- NOTE | 2021-10-01 15:42 | PM.IMPN ---
Progress Note: A&P Assessment and Plan (1) Syncope: Code(s): R55 - Syncope and collapse Status: Acute Assessment and Plan: Workup of syncope, monitor heart rhythm, carotid Doppler, 2D echo and cardiology consult. 09/30/2021 Interval history:patient 81-year-old male with history of atrial fibrillation on warfarin had developed Bradytechy syndrome, patient states prior to coming to emergency depart he has had several syncopal episode and on Wednesday he had 3 episodes that brought him to hospital further evaluate patient is seen by configuration management specialist recommended pacemaker, patient is on warfarin INR is therapeutic patient is given vitamin K to reverse INR will continue to monitor and further recommendation to follow. 10/01/2021 Interval history: today patient was taken to the cardiac geophysical laboratory director by the configuration management specialist and dual chamber pacemaker was placed and tolerated the procedure well, patient states feeling better denies any complaint of chest pain shortness of breath palpitation fever or chills, no dizziness, will continue to monitor and further recommendation to follow. (2) Acute UTI: Code(s): N39.0 - Urinary tract infection, site not specified Status: Acute Assessment and Plan: Urine culture and IV antibiotics. (3) Acute hypokalemia: Code(s): E87.6 - Hypokalemia Status: Acute Assessment and Plan: Replace and monitor. (4) Chronic congestive heart failure: Qualifiers: Heart failure type: unspecified Qualified Code(s): I50.9 - Heart failure, unspecified Code(s): I50.9 - Heart failure, unspecified Status: Acute Assessment and Plan: Continue current treatment with diuresis and medication. (5) Chronic renal insufficiency: Qualifiers: Chronic kidney disease stage: stage 2 (mild) Qualified Code(s): N18.2 - Chronic kidney disease, stage 2 (mild) Code(s): N18.9 - Chronic kidney disease, unspecified Status: Acute Assessment and Plan: Monitor closely (6) Arthritis: Code(s): M19.90 - Unspecified osteoarthritis, unspecified site Status: Acute Assessment and Plan: Continue pain medicine. 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 Additional Plan Patient is full code at present time. Patient is of stable with fluid in the hospital. September 29, 2021 Plan is to continue current treatment. Hold Coumadin. Cardiology was patient for possible pacemaker placement. Subjective Date/time seen: 10/01/21 15:42 09/30/2021 Interval history:patient 81-year-old male with history of atrial fibrillation on warfarin had developed Bradytechy syndrome, patient states prior to coming to emergency depart he has had several syncopal episode and on Wednesday he had 3 episodes that brought him to hospital further evaluate patient is seen by configuration management specialist recommended pacemaker, patient is on warfarin INR is therapeutic patient is given vitamin K to reverse INR will continue to monitor and further recommendation to follow. 10/01/2021 Interval history: today patient was taken to the cardiac geophysical laboratory director by the configuration management specialist and dual chamber pacemaker was placed and tolerated the procedure well, patient states feeling better denies any complaint of chest pain shortness of breath palpitation fever or chills, no dizziness, will continue to monitor and further recommendation to follow. Review of Systems Review of Systems: All systems reviewed & are unremarkable except as noted in HPI and below Exam Narrative: moderately obese Patient is comfortable, NAD HEENT: eyes are clear and none icteric LUNGS: normal respiratory effort
[2021-10-01] MEDS: PRAMIPEXOLE 1 MG TABLET 2 MG PO (17:27)
[2021-10-01] MEDS: allopurinoL 100 MG TABLET 200 MG PO (17:28)
[2021-10-01 17:53] LABS: Glucose Point of Care 181 mg/dl (65-105)
[2021-10-01 19:55] LABS: Glucose Point of Care 257 mg/dl (65-105)
[2021-10-01] MEDS: CLOPIDOGREL BISULFATE 75 MG TABLET PO (20:37)
[2021-10-01] MEDS: FINASTERIDE 5 MG TABLET PO (20:37)
[2021-10-01] MEDS: TAMSULOSIN HCL 0.4 MG CAPSULE PO (20:37)
[2021-10-02] VITALS (11 sets, daily range): BP systolic 98–119; BP diastolic 69–81; PULSE 88–140; RESP 20; TEMP 36.2–36.4; O2SAT 96–98
[2021-10-02] MEDS: HYDROcodone/acetaminophen (*CRX) 7.5-325 MG TABLET 1 TAB PO (04:51)
[2021-10-02 05:17] LABS: Hematocrit 39.9 % (42.0-52.0); Hemoglobin 12.9 g/dL (14.0-18.0); Mean Corpuscular HGB Conc 32.3 g/dl (32-36); Mean Corpuscular Hemoglobin 30.5 pg (26-34); Mean Corpuscular Volume 94.3 fl (80-100); Mean Platelet Volume 10.2 fl (7.4-10.4); Platelet Count Result 266 k/mm3 (150-375); Red Blood Count 4.23 M/mm3 (4.6-6.20); Red Cell Distribution Width 13.4 % (11.5-14.5); White Blood Count 9.3 K/mm3 (4.5-10.0)
[2021-10-02 05:28] LABS: INR 1.2; Prothrombin Time 14.6 Seconds (11.1-14.7)
[2021-10-02 05:30] LABS: Anion Gap 7 mmol/L (8-16); Blood Urea Nitrogen 40 mg/dL (9-20); Carbon Dioxide 30 mmol/L (22-30); Chloride 96 mmol/L (98-107); Estimated CRCL calculation 57 ml/min; Estimated Glomerular Filt Rate > 60; Glucose 209 mg/dL (65-110); Potassium 3.5 mmol/L (3.4-5.0); Sodium 133 mmol/L (137-145)
[2021-10-02 07:49] LABS: Glucose Point of Care 246 mg/dl (65-105)
[2021-10-02] MEDS: FUROSEMIDE 40 MG TABLET PO (09:36)
[2021-10-02] MEDS: ATORVASTATIN 40 MG TABLET PO (09:36)
[2021-10-02] MEDS: metOLazone 5 MG TABLET PO (09:37)
[2021-10-02] MEDS: Linaclotide [Linzess] 145 mcg capsule 2 EACH BY MOUTH (09:37)
[2021-10-02] MEDS: SPIRONOLACTONE 50 MG TABLET 100 MG PO (09:37)
[2021-10-02] MEDS: INSULIN ASPART (*BKC) 100 UNITS/ML SUB-Q ×2 (09:37→13:08)
[2021-10-02] MEDS: glyBURIDE 2.5 MG TABLET PO (09:37)
[2021-10-02 11:55] LABS: Glucose Point of Care 305 mg/dl (65-105)
--- NOTE | 2021-10-02 12:19 | PM.PNCARD ---
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 Found to have significant pauses. Patient has been deemed to be an appropriate candidate for permanent pacemaker implant. -status post implantation of permanent pacemaker yesterday. Device interrogation completed this morning. His chest x-ray does not show any evidence of pneumothorax. -warfarin currently on hold. Per Dr. Grullon, patient to hold Coumadin until he is seen in our office in 1 week. -remains in atrial fibrillation, having some episodes of tachycardia especially with activity. Rates into the 150s, 160s. He is asymptomatic with this. Will start him on 25 mg of metoprolol b.i.d.. Give 1st dose now. Will observe his blood pressure response, monitor him on telemetry throughout the afternoon. If his blood pressure remains stable and heart rate responds appropriately to metoprolol, would be appropriate for discharge home this afternoon. <CHARLEEN Arguelles - Last Filed: 10/02/21 12:43> (2) A-fib: Qualifiers: Atrial fibrillation type: unspecified Qualified Code(s): I48.91 - Unspecified atrial fibrillation <CHARLEEN Arguelles - Last Filed: 10/02/21 12:43> Code(s): I48.91 - Unspecified atrial fibrillation <CHARLEEN Arguelles - Last Filed: 10/02/21 12:43> Status: Chronic <CHARLEEN Arguelles - Last Filed: 10/02/21 12:43> Assessment and Plan: As above. <CHARLEEN Arguelles - Last Filed: 10/02/21 12:43> Additional Plan Attending Addendum: I agree with the above documentation and plan of care as outlined. Personally reviewed pacemaker interrogation and chest x-ray post implant. Leads in appropriate/expected position. Normal device function. <Rey Owens MD - Last Filed: 10/02/21 13:31> Subjective Date/time seen: 10/02/21 12:19 <CHARLEEN Arguelles - Last Filed: 10/02/21 12:43> Interval history: Cardiology follow-up for tachy-demetrio syndrome, status post implantation of permanent pacemaker device Date of service 10/02/2021: Patient is feeling well this morning. Does not have any complaints. Denies any pain at pacemaker insertion site. He remains in atrial fibrillation, he has had some tachycardia especially with activity. He is not experiencing any symptoms from this. <CHARLEEN Arguelles - Last Filed: 10/02/21 12:43> Review of Systems Constitutional: Constitutional: Reports weakness <CHARLEEN Arguelles - Last Filed: 10/02/21 12:43> Eyes: Eyes: Reports no additional eye complaints <CHARLEEN Arguelles - Last Filed: 10/02/21 12:43> ENT: Reports system reviewed and no additional complaints, except as documented <CHARLEEN Arguelles - Last Filed: 10/02/21 12:43> Cardiovascular: Cardiovascular: Reports no additional cardiovascular complaints and Reports dyspnea on exertion <CHARLEEN Arguelles - Last Filed: 10/02/21 12:43> Respiratory: Respiratory: Reports dyspnea on exertion <CHARLEEN Arguelles - Last Filed: 10/02/21 12:43> Gastrointestinal: Gastrointestinal: Reports no additional gastrointestinal complaints <CHARLEEN Arguelles - Last Filed: 10/02/21 12:43> Musculoskeletal: Musculoskeletal: Reports as per HPI and Reports back pain <CHARLEEN Arguelles - Last Filed: 10/02/21 12:43> Integumentary/Breasts: Skin/Breast: Reports system reviewed and no additional complaints, except as docu <CHARLEEN Arguelles - Last Filed: 10/02/21 12:43> Neurologic: Reports system reviewed and no additional complaints, except as documented and Reports weakness <Mary Velázquez APN-Chelsie - Last Filed: 10/02/21 12:43> Endocrine: Endocr
[2021-10-02] MEDS: METOPROLOL TARTRATE 25 MG TABLET PO (13:09)
--- NOTE | 2021-10-02 15:57 | PM.DS ---
DS: Admitting Diagnosis Discharge Date 10/02/2021 Admitting Diagnosis syncope DS: Discharge Diagnosis Discharge Diagnosis (1) Syncope: Code(s): R55 - Syncope and collapse Status: Acute Assessment and Plan: Workup of syncope, monitor heart rhythm, carotid Doppler, 2D echo and cardiology consult. 09/30/2021 Interval history:patient 81-year-old male with history of atrial fibrillation on warfarin had developed Bradytechy syndrome, patient states prior to coming to emergency depart he has had several syncopal episode and on Wednesday he had 3 episodes that brought him to hospital further evaluate patient is seen by logistics engineer recommended pacemaker, patient is on warfarin INR is therapeutic patient is given vitamin K to reverse INR will continue to monitor and further recommendation to follow. 10/01/2021 Interval history: today patient was taken to the cardiac mill laborer by the logistics engineer and dual chamber pacemaker was placed and tolerated the procedure well, patient states feeling better denies any complaint of chest pain shortness of breath palpitation fever or chills, no dizziness, will continue to monitor and further recommendation to follow. (2) Acute UTI: Code(s): N39.0 - Urinary tract infection, site not specified Status: Acute Assessment and Plan: Urine culture and IV antibiotics. (3) Acute hypokalemia: Code(s): E87.6 - Hypokalemia Status: Acute Assessment and Plan: Replace and monitor. (4) Chronic congestive heart failure: Qualifiers: Heart failure type: unspecified Qualified Code(s): I50.9 - Heart failure, unspecified Code(s): I50.9 - Heart failure, unspecified Status: Acute Assessment and Plan: Continue current treatment with diuresis and medication. (5) Chronic renal insufficiency: Qualifiers: Chronic kidney disease stage: stage 2 (mild) Qualified Code(s): N18.2 - Chronic kidney disease, stage 2 (mild) Code(s): N18.9 - Chronic kidney disease, unspecified Status: Acute Assessment and Plan: Monitor closely (6) Arthritis: Code(s): M19.90 - Unspecified osteoarthritis, unspecified site Status: Acute Assessment and Plan: Continue pain medicine. (7) Essential hypertension: Code(s): I10 - Essential (primary) hypertension Status: Acute Assessment and Plan: Stable on medications (8) Chronic anticoagulation: Code(s): Z79.01 - custodial (current) use of anticoagulants Status: Acute Assessment and Plan: Will hold Coumadin for now in case pacemaker is needed. DS: Summary Hospital Course Reason for hospitalization: Chief Complaint: Syncope Narrative: Patient is 81 years old male with past medical history of chronic atrial fibrillation, coronary artery disease, dyslipidemia, diabetes, arthritis and chronic low back pain was admitted through the emergency with a complaint that patient have more than 8 episodes of syncope at home. Patient denies getting any warning for passing out. Patient denies shortness of breath or chest pain. Each episode of syncopal last for few seconds. Patient never lost complete consciousness. Patient denies any other complaints at present time. Hospital Course: 09/30/2021 Interval history:patient 81-year-old male with history of atrial fibrillation on warfarin had developed Bradytechy syndrome, patient states prior to coming to emergency depart he has had several syncopal episode and on Wednesday he had 3 episodes that brought him to hospital further evaluate patient is seen by logistics engineer recommended pacemaker, patient is on warfarin INR is therapeutic patient is given vitamin K to reverse INR will continue to monitor and further recommendation to follow. 10/01/2021 Interval history: today patient was taken to the cardiac mill laborer by the logistics engineer and dual chamber pacemaker was placed and tolerated the procedure well, caridad
== END 2021-10-02 17:28 | disposition home or self-care (01) | DRG 243 ==
LOC: ANHED 09:55 → ANHIMU 17:08
PROVIDERS: Internal Medicine Cardiovascular Disease; Specialist; Admitting Provider Internal Medicine; Emergency Provider Emergency Medicine; PCP Family Medicine; Visit Provider Family Medicine
PROC: 0JH604Z Insertion of Pacemaker, Single Chamber into Chest Subcutaneous Tissue and Fascia, Open Approach (ICD-10-PCS; CPT 33210; principal; 2021-10-01 08:30)
DX: I49.5 Sick sinus syndrome (principal); N39.0 Urinary tract infection, site not specified; I48.20 Chronic atrial fibrillation, unspecified; I13.0 Hypertensive heart and chronic kidney disease with heart failure and stage 1 through stage 4 chronic kidney disease, or unspecified chronic kidney disease; I50.9 Heart failure, unspecified; N18.30 Chronic kidney disease, stage 3 unspecified; I25.10 Atherosclerotic heart disease of native coronary artery without angina pectoris; E78.5 Hyperlipidemia, unspecified; E87.6 Hypokalemia; E11.42 Type 2 diabetes mellitus with diabetic polyneuropathy; M54.50 Low back pain, unspecified; E11.22 Type 2 diabetes mellitus with diabetic chronic kidney disease; G89.29 Other chronic pain; M19.90 Unspecified osteoarthritis, unspecified site; N40.0 Benign prostatic hyperplasia without lower urinary tract symptoms; Z98.49 Cataract extraction status, unspecified eye; Z51.81 Encounter for therapeutic drug level monitoring; Z79.01 Long term (current) use of anticoagulants; Z96.612 Presence of left artificial shoulder joint; Z79.84 Long term (current) use of oral hypoglycemic drugs; Z96.611 Presence of right artificial shoulder joint; Z96.641 Presence of right artificial hip joint; Z87.891 Personal history of nicotine dependence; Z79.02 Long term (current) use of antithrombotics/antiplatelets; Z95.5 Presence of coronary angioplasty implant and graft; Z79.4 Long term (current) use of insulin
CPT/HCPCS: 33212; 36415; 70450; 71045; 71046; 73030; 80048; 80053; 81001; 82948; 84443; 84484; 85025; 85027; 85610; 85730; 87086; 93005; 93880; 96361; 96365; 96366; 99285; A4565; A9270; C1779; C1785; G0378; J0690; J0696; J1815; J2250; J3010; J3430; J7030; J7040

== ENCOUNTER 2021-12-02 09:52 | Observation (INO) | payer MEDICARE, SELFPAY ==
[2021-12-02] VITALS (11 sets, daily range): BP systolic 97–133; BP diastolic 52–81; PULSE 64–102; RESP 16–27; TEMP 36–36.9; O2SAT 92–99; BMI 35.2
--- NOTE | ~2021-12-02 | XR_ITS ---
EXAMINATION: XR chest 2V EXAM DATE: 12/02/2021 10:20 INDICATION: Coughing Up Blood TECHNIQUE: Frontal and lateral projections of the chest obtained and reviewed. Comparison is made to prior examination from 10/02/2021. FINDINGS: There is single lead pacemaker/AICD device seen with tip projecting over the expected loca tion of right ventricle. No confluent consolidation, pneumothorax or pleural effusion suspected. The cardiomediastinal silhouette is prominent but magnified on this AP technique. There are bilateral shoulder replacements. There is a left 5th rib fracture posterolaterally without healing response identified, appears acute. There is subacute or chronic left 6th rib fracture pageant director olaterally. IMPRESSION: 1. Left 5th Acute-Appearing And 6 Subacute Or Chronic Appearing Rib Fractures. 2. Clear lungs. Reviewed, dictated and finalized at location A. HATCHERY WORKER
--- NOTE | ~2021-12-02 | CT_ITS ---
EXAMINATION: CT diagnostic chest wo con EXAM DATE: 12/02/2021 12:02 INDICATION: Hemoptysis. TECHNIQUE: Spiral CT of the chest without contrast. Axial, coronal and sagittal images of the chest were reviewed. Coronal maximum intensity pixel images of chest reviewed. The dose-length product ( DLP) for this examination was 588.18 mGy-cm. The exposure was tailored according to patient size (au to mA exposure control), and iterative reconstruction (ASIR) was used as additional dose reduction te chnique. Correlation is made to chest x-ray same date. FINDINGS: The lungs are clear. There are no pleural or pericardial effusions. Tracheobronchial t ree is patent. There is no mediastinal, hilar or axillary lymphadenopathy. There is no pneumothor ax. Heart normal in size. Probable coronary artery stents. Single lead pacemaker/AICD device. Up per abdomen is unremarkable. Subacute appearing left 5th and 6th rib fractures, more healing respon se at the 6th. Bilateral shoulder replacements. IMPRESSION: 1. No acute cardiopulmonary findings. Clear lungs. 2. Subacute left 5th, 6th rib fractures. Reviewed, dictated and finalized at location A. TY AND OCCUPATIONAL HEALTH MANAGER
--- NOTE | 2021-12-02 10:06 | PC.NURSE ---
pt states had been taking warfarin 4 mg daily and alternating with 2 mg 2 x week. but for last 8 days has been taking 4 mg daily. inr 5.6 yesterday. states last night began coughing up blood. bruising noted to left lateral side.
--- NOTE | 2021-12-02 10:10 | ECG_ITS ---
Measurements Intervals [place] Rate: 90 P: AL: 0 QRS: 15 QRSD: 109 T: -1 QT: 354 QTc: 433 Interpretive Statements ATRIAL FIBRILLATION INDETERMINATE AXIS LOW QRS VOLTAGE IN PRECORDIAL LEADS COMPARED TO ECG 10/01/2021 10:26:35 NO SIGNIFICANT CHANGES Electronically Signed On 12-02-2021 11:29:38 ASSOCIATE PROGRAMMER ANALYST by Aron Singh M.D.
[2021-12-02 10:23] LABS: Basophils Percent Auto 0.3 % (0.2-1.2); Eosinophils Absolute Auto 0.1 K/mm3 (0-0.3); Eosinophils Percent Auto 1.1 % (0-4.4); Hematocrit 38.8 % (42.0-52.0); Hemoglobin 12.6 g/dL (14.0-18.0); Lymphocytes Absolute Auto 0.84 K/mm3 (0.9-3.2); Mean Corpuscular HGB Conc 32.5 g/dl (32-36); Mean Corpuscular Hemoglobin 30.7 pg (26-34); Mean Corpuscular Volume 94.6 fl (80-100); Mean Platelet Volume 10.2 fl (7.4-10.4); Monocytes Absolute Auto 0.9 K/mm3 (0.1-0.6); Monocytes Percent Auto 8.3 % (2.6-8.5); Neutrophils Absolute Auto 8.5 K/mm3 (1.3-6.7); Neutrophils Percent Auto 81.3 % (45.5-73.1); Platelet Count Result 277 k/mm3 (150-375); Red Cell Distribution Width 14.8 % (11.5-14.5); White Blood Count 10.5 K/mm3 (4.5-10.0)
[2021-12-02 10:42] LABS: Prothrombin Time 45.6 Seconds (11.1-14.7)
[2021-12-02 10:43] LABS: Partial Thromboplastin Time 53.9 SECONDS (22.3-36.8)
[2021-12-02 10:51] LABS: INR 5.1
[2021-12-02 10:52] LABS: Troponin I < 0.012 ng/mL (0.000-0.034)
[2021-12-02 11:09] LABS: Alanine Aminotransferase 37 U/L (4-50); Albumin Level 4.2 g/dL (3.5-5.1); Alkaline Phosphatase 146 U/L (38-126); Anion Gap 11 mmol/L (8-16); Aspartate Amino Transferase 42 U/L (17-59); Bilirubin,Total 0.7 mg/dL (0.2-1.3); Calcium 8.8 mg/dL (8.4-10.2); Carbon Dioxide 27 mmol/L (22-30); Chloride 94 mmol/L (98-107); Estimated CRCL calculation 37 ml/min; Estimated Glomerular Filt Rate 39; Glucose 275 mg/dL (65-110); Potassium 3.3 mmol/L (3.4-5.0); Sodium 132 mmol/L (137-145)
--- NOTE | 2021-12-02 12:00 | ED.GENADULT ---
HPI - General Adult General Chief complaint: Recheck/Abnormal Lab/Rx Stated complaint: abnormal labs Time Seen by Provider: 12/02/21 10:52 Source: patient Mode of arrival: ambulatory Limitations: no limitations History of Present Illness HPI narrative: Patient is 81 years old white male with history of atrial fibrillation, on Coumadin. Had blood work-up yesterday for back surgery preop, complaining of cough and blood, fresh red bright blood overnight. Had a phone call this morning from his doctor with elevated INR. Patient denies any history of coughing, chest pain or shortness of breath. Patient also denies any fever, chills, nausea, vomiting. Complaining of chronic upper back pain, declined to receive any pain medication in the emergency room. Patient reported history of multiple falls over the last 3 months Related Data Home Medications Medication Instructions Recorded Confirmed finasteride 5 mg tablet 5 mg PO HS 08/21/19 09/28/21 furosemide 40 mg tablet 40 mg PO BID 08/21/19 09/28/21 tamsulosin 0.4 mg capsule 0.4 mg PO HS 03/14/20 09/28/21 metolazone 5 mg tablet 5 mg PO DAILY 07/31/21 09/28/21 spironolactone 25 mg tablet 100 mg PO QAM tablet 07/31/21 09/28/21 atorvastatin 40 mg PO DAILY 08/05/21 09/28/21 clopidogrel 75 mg PO HS 08/05/21 09/28/21 glyburide 2.5 mg PO DAILY 08/05/21 09/28/21 docusate sodium [Colace] 100 mg PO BID PRN 09/28/21 09/28/21 Allergies Allergy/AdvReac Type Severity Reaction Status Date / Time No Known Allergies Allergy Verified 12/02/21 10:04 Review of Systems Review of Systems: CONSTITUTIONAL: Denies fever, chills, or sweats. EYES: Denies visual changes, redness, or discharge. ENT: Denies rhinorrhea, congestion, sore throat, or otalgia. CARDIOVASCULAR: Denies chest pain, palpitations, or edema. RESPIRATORY: Denies cough or dyspnea. GASTROINTESTINAL: Denies abdominal pain, nausea, vomiting, or diarrhea. GENITOURINARY: Denies dysuria or hematuria. SKIN: Denies rash or itching. MUSCULOSKELETAL: Denies back pain, joint pain, or myalgia. NEUROLOGIC: Denies headache, numbness, or weakness. PSYCHIATRIC: Denies anxiety or depression. [facility] Past Medical History Medical History A-fib BPH (benign prostatic hyperplasia) Cardiomyopathy Chronic congestive heart failure CKD (chronic kidney disease) stage 3, GFR 30-59 ml/min Degenerative disc disease Diabetes Hypertension Osteoarthritis Pacemaker Peripheral neuropathy Right hip pain Surgical History Surgical History H/O cataract extraction History of arthroplasty of left shoulder History of total hip replacement Right side S/p bilateral shoulder joint replacement Family History Family History Father Family history of malignant neoplasm of stomach at the age of 59 Mother Cancer Social History Social History Social History: uses cane, still drives. He lives with his in a duplex. His is the durable power manager fashion for healthcare. The patient is a full code. He has 2 children. He is retired from [employer]. The patient smoked a pack a cigarettes a day and quit 52 years ago. No alcohol or illicit drugs. Smoking packs per day: 1 Smoking cigarettes per day: 20.0 Years smoked: 5 Smoking pack-years: 5.00 Smoking status: Former smoker Tobacco type: cigarettes Smoking end date: 09/27/21 Alcohol intake: former Substance use: never Substance use type: does not use Gender identity (if verbalized by the patient): Male Spiritual care concerns: No Exam Narrative: General appearance: Well-developed, well-nourished, depressed Skin: Normal color scattered bruises Eyes: Clear conjunctiva ENT: Oropharynx normal, ears normal, nose normal Neck: Supple, nontender Chest and respiratory:
[2021-12-02 12:12] LABS: Blood Urea Nitrogen 126 mg/dL (9-20)
[2021-12-02] MEDS: PHYTONADIONE 5 MG TABLET PO (12:13)
[2021-12-02] MEDS: SODIUM CHLORIDE 0.9% IV 250 ML 30 ML IV CONT (13:12)
[2021-12-02] MEDS: HYDROcodone/acetaminophen (*CRX) 5-325 MG TABLET 1 TAB PO (13:43)
[2021-12-02] MEDS: TUBING, BLOOD SET 1 EACH XX (13:58)
[2021-12-02 14:32] LABS: INR 3.8; Prothrombin Time 36.3 Seconds (11.1-14.7)
--- NOTE | 2021-12-02 15:48 | PC.NURSE ---
This patient, En Wilson, was admitted to [facility] Surg Room 307-01 on 12/02/21 @ 1540. Patient/family oriented to hospital policies and general routines including ID bracelet, bed and alarms, visiting hours, pain management, procedures, bathroom and other care routines, personal items, smoking policy, room service/diet, and visiting hours. Information on how to activate the Rapid Response Team has been discussed. Patient/Family are encouraged to report perceived risks to care and to ask questions if they do not understand what they are told or what they should do.
[2021-12-02] MEDS: SODIUM CHLORIDE 0.9% IV 1,000 ML 100 ML IV CONT ×2 (16:06→22:43)
--- NOTE | 2021-12-02 16:22 | ADMGEN ---
This patient, En Wilson, was admitted to [facility] Surg Room 307-01. Patient/family oriented to hospital policies and general routines including ID bracelet, bed and alarms, visiting hours, pain management, procedures, bathroom and other care routines, personal items, smoking policy, room service/diet, and visiting hours. Information on how to activate the Rapid Response Team has been discussed. Patient/Family are encouraged to report perceived risks to care and to ask questions if they do not understand what they are told or what they should do.
--- NOTE | 2021-12-02 16:28 | ADMGEN ---
This patient, En Wilson, was admitted to [facility] Surg Room 307-01. Patient/family oriented to hospital policies and general routines including ID bracelet, bed and alarms, visiting hours, pain management, procedures, bathroom and other care routines, personal items, smoking policy, room service/diet, and visiting hours. Information on how to activate the Rapid Response Team has been discussed. Patient/Family are encouraged to report perceived risks to care and to ask questions if they do not understand what they are told or what they should do.
--- NOTE | 2021-12-02 16:54 | PM.CNPUL ---
Assessment and Plan Assessment and plan (1) Epistaxis: Code(s): R04.0 - Epistaxis Status: Acute Assessment and Plan: Patient with atrial fibrillation on Coumadin with a high INR of 5.6 and a BUN of 126 and 1 week history of epistaxis and followed by 2 day history of bloody sputum. It is impossible to tell if the bloody sputum is result from his epistaxis or if this is true hemoptysis. CT scan of the chest today shows no pulmonary, masses or infiltrates So I suspect that his bloody sputum is secondary to his epistaxis which is likely caused by his high INR and uremia. INR is being corrected with FFP and oral vitamin K. Patient has no more nose bleeds or bloody sputum at this time. there is no evidence of infection at this time and I do not see a need for any antibiotics from a pulmonary standpoint. Will follow patient clinically for additional active bleeding. History of Present Illness History of Present Illness Consult date: 12/02/21 Requesting physician: Julia Fry MD Reason for consult: other (epistaxis and hemoptysis) Chief complaint: Hemoptysis, warfarin coaggulopathy, hypokalemia, A Narrative: 81-year-old man with a history of atrial fibrillation on Coumadin, congestive heart failure, diabetes, hypertension, osteoarthritis, chronic back pain who was on Coumadin. Patient has been having frequent changes in his Coumadin dose as they were preparing to have a spinal stimulator placed. He was placed on a higher dose of 4 Ward mg of Coumadin a day and he missed to Coumadin INR check and this was continued. Approximately 1 week ago patient noticed that he started developing bloody noses he would blow his nose 5-10 times a day and he would have blood with each episode. He also noticed some postnasal drip. One day prior to admission, yesterday he noticed that he coughed 4-5 times with bright red blood. He denied fever, chills, rigors, chest pains, nausea, vomiting. This coughing persisted and he presented to the emergency room on 12/02. Patient smoked cigarettes from age [age] at 1 pack per day. He is not exposed to any secondhand smoke. 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 In the emergency room the patient was hemodynamically stable with room air saturations 98-100%. patient had a white blood cell count of 10.5, INR 5.1, creatinine of 1.70, BUN of 126. Patient had a CT scan of the chest without contrast that showed clear lung [place] with no masses, effusions, or infiltrates. Patient was treated with 1 unit of FFP and 5 mg of vitamin K and is repeat INR was 3.8. DATA EXAMINATION: CT diagnostic chest wo con EXAM DATE: 12/02/2021 12:02 INDICATION: Hemoptysis. TECHNIQUE: Spiral CT of the chest without contrast. Axial, coronal and sagittal images of the chest were reviewed. Coronal maximum intensity pixel images of chest reviewed. The dose-length product (DLP) for this examination was 588.18 mGy-cm. The exposure was tailored according to patient size (auto mA exposure control), and iterative reconstruction (ASIR) was used as additional dose reduction technique. Correlation is made to chest x-ray same date. FINDINGS: The lungs are clear. There are no pleural or pericardial effusions. Tracheobronchial tree is patent. There is no mediastinal, hilar or axillary lymphadenopathy. There is no pneumothorax. Heart normal in size. Probable coronary artery stents. Single lead pacemaker/AICD device. Upper abdomen is unremarkable. Subacute appearing left 5th and 6th rib fractures, more healing response at the 6th. Bilateral shoulder replacements. IMPRESSION: 1. No acute cardiopulmonary findings. Clear lungs. 2. Subacute left 5th, 6th rib fractures. Review of Systems Review of Systems: All systems reviewed & are unremarkable except as noted in HPI and below Eyes: Ey
[2021-12-02 18:34] LABS: INR 3.5; Prothrombin Time 33.8 Seconds (11.1-14.7)
--- NOTE | 2021-12-02 20:37 | PM.IMHP ---
H&P: HPI History of Present Illness Date/Time: 12/02/21 20:37 Chief Complaint: Coughing up blood Narrative: 81-year-old male with past medical history of gout, chronic kidney disease, coronary artery disease, atrial fibrillation, pacemaker and diabetes who presented to the ER from home due to elevated INR and report of hemoptysis. The patient reports than for last week or so he has been having epistaxis. Then last night had an episode of hemoptysis. He reported he could tell that he had material draining down his throat and he was spitting material up. He did have a little bit of a cough with the postnasal drip but denied any shortness of breath. He reports that he thinks he coughed up about a half a cup bright red colored mucus. He denies having any hematemesis or coffee-ground emesis. He denies any black stools or bloody stools. He does admit that he has been having difficulty controlling his INR. He missed his usual blood draw last week because his was in the hospital with a small-bowel obstruction. He went to his primary care physician yesterday and was instructed to go to the ER today when his INR was greater than 5. He does have multiple areas of bruising. 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 He had been having multiple episodes of syncope at that time. He reported the episodes of syncope got better at . But now he states that he sleeps poorly and feels like he falls asleep at the drop of a hat. He states he will fall asleep while sitting on the bar stools at home. He also reports that some of his syncopal events happened will use walking. He denies any dizziness or loss of balance before these episodes. He denies any chest pain or palpitations. He does ambulate with a 4 prong cane. He reports that he has chronic back pain and this interferes with his sleep. He is being evaluated at [facility] for possible spinal stimulator but was told last week that they did not feel comfortable placing a spinal stimulator. He is upset regarding this. He denies any dysuria, dark urine or decreased urinary frequency. He does have issues with occasional leakage of urine and chronic urinary urgency. He feels like he empties his bladder all the way. He does have known chronic kidney disease with baseline creatinine between 1.1 and 1.3. He denies any nausea or vomiting. He has had a good appetite and reports adequate intake of liquids. Review of Systems Review of Systems: 12 systems were reviewed with pertinent positives and negatives per HPI. Except as documented in the HPI, all other systems were reviewed and are negative. [facility] Past Medical History Medical History (Updated 12/03/21 @ 02:15 by Liseth Mora DO) A-fib BPH (benign prostatic hyperplasia) Cardiomyopathy Chronic congestive heart failure Echocardiogram 12/20/2020: 4 chamber dilatation, moderate left ventricular enlargement with mild lead depressed systolic function with EF of 40-45% CKD (chronic kidney disease) stage 3, GFR 30-59 ml/min Coronary artery disease Degenerative disc disease Diabetes Gout Hypertension Osteoarthritis Pacemaker Peripheral neuropathy Right hip pain Surgical History Surgical History (Updated 12/03/21 @ 02:08 by Liseth Mora DO) History of arthroplasty of left shoulder History of heart artery stent (~07/2021) X2 History of total hip replacement Right side S/p bilateral shoulder joint replacement Status post cardiac pacemaker procedure (~09/2021) Due to AFib with systolic pauses Status post cataract extraction of both eyes with insertion of intraocular lens Family History Family History Father Family history of malignant neoplasm of stomach at the age of 59 Mother Cancer Social History Social History (Updated 12/03/21 @ 02:10 by Liseth Mroa DO) Social History: The patient lives with his of 58 years. T
[2021-12-02] MEDS: allopurinoL 100 MG TABLET 200 MG PO (21:58)
[2021-12-02] MEDS: PRAMIPEXOLE 1 MG TABLET 2 MG PO (21:58)
[2021-12-02] MEDS: TAMSULOSIN HCL 0.4 MG CAPSULE PO (21:59)
[2021-12-02] MEDS: CLOPIDOGREL BISULFATE 75 MG TABLET PO (21:59)
[2021-12-02] MEDS: FINASTERIDE 5 MG TABLET PO (21:59)
[2021-12-02 23:58] LABS: Glucose Point of Care 136 mg/dl (65-105)
[2021-12-03] VITALS (11 sets, daily range): BP systolic 95–110; BP diastolic 56–67; PULSE 72–89; RESP 16–18; TEMP 36.2–36.6; O2SAT 93–98
[2021-12-03] MEDS: HYDROcodone/acetaminophen (*CRX) 7.5-325 MG TABLET 1 TAB PO ×2 (02:53→21:12)
[2021-12-03 06:36] LABS: Hematocrit 34.8 % (42.0-52.0); Mean Corpuscular HGB Conc 31.6 g/dl (32-36); Mean Corpuscular Hemoglobin 30.7 pg (26-34); Mean Corpuscular Volume 97.2 fl (80-100); Mean Platelet Volume 10.2 fl (7.4-10.4); Platelet Count Result 228 k/mm3 (150-375); Red Blood Count 3.58 M/mm3 (4.6-6.20); Red Cell Distribution Width 14.7 % (11.5-14.5)
[2021-12-03 06:52] LABS: Anion Gap 6 mmol/L (8-16); Blood Urea Nitrogen 94 mg/dL (9-20); Calcium 8.6 mg/dL (8.4-10.2); Carbon Dioxide 29 mmol/L (22-30); Chloride 98 mmol/L (98-107); Estimated CRCL calculation 51 ml/min; Estimated Glomerular Filt Rate 58; Glucose 185 mg/dL (65-110); Sodium 133 mmol/L (137-145)
[2021-12-03 07:00] LABS: INR 2.8; Prothrombin Time 28.5 Seconds (11.1-14.7)
[2021-12-03 07:43] LABS: Glucose Point of Care 183 mg/dl (65-105)
[2021-12-03] MEDS: SODIUM CHLORIDE 0.9% IV 1,000 ML 100 ML IV CONT ×2 (08:56→23:33)
[2021-12-03] MEDS: LINACLOTIDE 145 MCG CAPSULE 290 MCG PO (08:56)
[2021-12-03] MEDS: ATORVASTATIN 40 MG TABLET PO (08:56)
[2021-12-03] MEDS: METOPROLOL TARTRATE 25 MG TABLET PO ×2 (08:57→21:11)
[2021-12-03] MEDS: POTASSIUM CHLORIDE 20 MEQ TABLET 40 MEQ PO (08:57)
[2021-12-03] MEDS: glyBURIDE 2.5 MG TABLET PO (08:57)
[2021-12-03] MEDS: allopurinoL 100 MG TABLET 200 MG PO (09:10)
--- NOTE | 2021-12-03 09:38 | PM.PNPUL ---
Progress Note: A&P Assessment and Plan (1) Epistaxis: Code(s): R04.0 - Epistaxis Status: Acute Assessment and Plan: 12/02 Patient with atrial fibrillation on Coumadin with a high INR of 5.6 and a BUN of 126 and 1 week history of epistaxis and followed by 2 day history of bloody sputum. It is impossible to tell if the bloody sputum is result from his epistaxis or if this is true hemoptysis. CT scan of the chest today shows no pulmonary, masses or infiltrates So I suspect that his bloody sputum is secondary to his epistaxis which is likely caused by his high INR and uremia. INR is being corrected with FFP and oral vitamin K. Patient has no more nose bleeds or bloody sputum at this time. there is no evidence of infection at this time and I do not see a need for any antibiotics from a pulmonary standpoint. 12/03 patient did sleep last night. Patient denies any nose bleeds. Patient denies any hemoptysis. INR is 2.8 today. Patient is on room air with saturations 98%. Patient without any active bleeding at this time after decreasing his INR. He has a normal CT scan of the chest. No further pulmonary follow-up needed at this time. Discussed with Tavia Brothers, will sign off, call with questions Subjective Date/time seen: 12/03/21 09:38 Interval history: 12/02 Is a new Pulmonary consult for epistaxis and hemoptysis 81-year-old man with a history of atrial fibrillation on Coumadin, congestive heart failure, diabetes, hypertension, osteoarthritis, chronic back pain who was on Coumadin. Patient has been having frequent changes in his Coumadin dose as they were preparing to have a spinal stimulator placed. He was placed on a higher dose of 4 Ward mg of Coumadin a day and he missed to Coumadin INR check and this was continued. Approximately 1 week ago patient noticed that he started developing bloody noses he would blow his nose 5-10 times a day and he would have blood with each episode. He also noticed some postnasal drip. One day prior to admission, yesterday he noticed that he coughed 4-5 times with bright red blood. He denied fever, chills, rigors, chest pains, nausea, vomiting. This coughing persisted and he presented to the emergency room on 12/02. Patient smoked cigarettes from age [age] at 1 pack per day. He is not exposed to any secondhand smoke. 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 In the emergency room the patient was hemodynamically stable with room air saturations 98-100%. patient had a white blood cell count of 10.5, INR 5.1, creatinine of 1.70, BUN of 126. Patient had a CT scan of the chest without contrast that showed clear lung [place] with no masses, effusions, or infiltrates. Patient was treated with 1 unit of FFP and 5 mg of vitamin K and is repeat INR was 3.8. 12/03 patient did sleep last night. Patient denies any nose bleeds. Patient denies any hemoptysis. INR is 2.8 today. Patient is on room air with saturations 98%. DATA EXAMINATION: CT diagnostic chest wo con EXAM DATE: 12/02/2021 12:02 INDICATION: Hemoptysis. TECHNIQUE: Spiral CT of the chest without contrast. Axial, coronal and sagittal images of the chest were reviewed. Coronal maximum intensity pixel images of chest reviewed. The dose-length product (DLP) for this examination was 588.18 mGy-cm. The exposure was tailored according to patient size (auto mA exposure control), and iterative reconstruction (ASIR) was used as additional dose reduction technique. Correlation is made to chest x-ray same date. FINDINGS: The lungs are clear. There are no pleural or pericardial effusions. Tracheobronchial tree is patent. There is no mediastinal, hilar or axillary lymphadenopathy. There is no pneumothorax. Heart normal in size. Probable coronary artery stents. Single lead pacemaker/AICD device. Upp
--- NOTE | 2021-12-03 09:56 | PM.IMPN ---
Progress Note: A&P Assessment and Plan (1) Warfarin-induced coagulopathy: Code(s): D68.32 - Hemorrhagic disorder due to extrinsic circulating anticoagulants; T45.515A - Adverse effect of anticoagulants, initial encounter Status: Acute Assessment and Plan: -Patient had hemoptysis and epistaxis due to warfarin induced coagulopathy. -The patient received 1 unit of FFP and 5 of vitamin K in the ER. -His INR has improved down to 2.8 -INR managed by PCP Kathi Branham -will restart his coumadin. He was previously on 2 mg, then increased to 4 mg several weeks ago. Will restart him at 3 mg and continue monitoring (2) Epistaxis: Code(s): R04.0 - Epistaxis Status: Acute Assessment and Plan: -likely due to elevated INR -intermittent x 1 week with several episodes of hemoptysis -H/H with 2 point drop overnight, likely dilutional but will check serial H/H -does appear to be relatively near his baseline at this time (3) Hemoptysis: Code(s): R04.2 - Hemoptysis Status: Acute Assessment and Plan: -suspect due to epistaxis secondary to elevated INR -see above -pulm consult (4) Acute on chronic kidney failure: Qualifiers: Acute renal failure type: unspecified Chronic kidney disease stage: stage 3 (moderate) Chronic kidney disease stage 3 subtype: unspecified whether 3a or 3b Qualified Code(s): N17.9 - Acute kidney failure, unspecified; N18.30 - Chronic kidney disease, stage 3 unspecified Code(s): N17.9 - Acute kidney failure, unspecified; N18.9 - Chronic kidney disease, unspecified Status: Acute Assessment and Plan: -1.7 on admission, baseline appears to be around 1.2 -hold the patient's Lasix, spironolactone and metolazone. -received gentle IVF hydration overnight with improvement to 1.2 today. IVF discontinued. -the idea of possible GI blood loss was discussed but seems less likely. If we checked a Hemoccult stool it would likely be positive given the patient's significant epistaxis over the last week. (5) Acute hypokalemia: Code(s): E87.6 - Hypokalemia Status: Acute Assessment and Plan: -3.3 on admission, received KCL 40 PO once in ER but dropped to 3.0 today -will replace and recheck BMP (6) Syncope and collapse: Code(s): R55 - Syncope and collapse Status: Acute Assessment and Plan: -Patient has been having multiple episodes of syncope and collapse. -Certainly part of these could be due to somnolence and falling asleep but I suspect that he may have some component of orthostatic hypotension given his blood pressures have been soft intermittently since admission. -Will check orthostatic blood pressures -Will have nurses ambulate patient with assistance in place patient on fall precautions. -The patient states that his pacemaker was interrogated by his sap business analyst Dr. Monroy with [facility] recently. Will request pacemaker interrogation. Subjective Date/time seen: 12/03/21 09:56 Interval history: 81-year-old male with past medical history of gout, chronic kidney disease, coronary artery disease, atrial fibrillation, pacemaker and diabetes, admitted for hemoptysis and elevated INR. Pt states he feels well this morning. He has not had any more episodes of hemoptysis. No cp/sob. He is anxious to go home. He is very upset that he is not able to have back surgery due to his heart conditions. Review of Systems Review of Systems: All systems reviewed & are unremarkable except as noted in HPI and below Exam Narrative: General: No acute distress, non toxic appearing, elderly Eyes: PERRL, no scleral icterus HEENT: NCAT, external ears normal, MMM Respiratory: No respiratory distress, Lungs CTA bilaterally, no wheezing Cardiovascular: RRR, no murmur Abdominal: Soft, nontender, non distended, no rebound or guarding, soft umbilical hernia Musculoskeletal: Mo
[2021-12-03 11:12] LABS: Hematocrit 36.4 % (42.0-52.0); Hemoglobin 11.4 g/dL (14.0-18.0)
[2021-12-03 11:31] LABS: Anion Gap 9 mmol/L (8-16); Blood Urea Nitrogen 90 mg/dL (9-20); Calcium 8.4 mg/dL (8.4-10.2); Carbon Dioxide 26 mmol/L (22-30); Chloride 100 mmol/L (98-107); Estimated CRCL calculation 56 ml/min; Estimated Glomerular Filt Rate > 60; Glucose 264 mg/dL (65-110); Potassium 3.5 mmol/L (3.4-5.0); Sodium 135 mmol/L (137-145)
[2021-12-03 11:57] LABS: Glucose Point of Care 243 mg/dl (65-105)
[2021-12-03] MEDS: INSULIN ASPART (*BKC) 100 UNITS/ML SUB-Q (12:40)
[2021-12-03 16:16] LABS: Glucose Point of Care 151 mg/dl (65-105)
[2021-12-03 16:17] LABS: Hemoglobin 11.4 g/dL (14.0-18.0)
[2021-12-03] MEDS: WARFARIN (*PBKC) 3 MG TABLET PO (16:49)
[2021-12-03] MEDS: PRAMIPEXOLE 1 MG TABLET 2 MG PO (16:51)
[2021-12-03] MEDS: TAMSULOSIN HCL 0.4 MG CAPSULE PO (21:10)
[2021-12-03] MEDS: FINASTERIDE 5 MG TABLET PO (21:10)
[2021-12-03] MEDS: CLOPIDOGREL BISULFATE 75 MG TABLET PO (21:11)
[2021-12-03 22:16] LABS: Hematocrit 33.1 % (42.0-52.0); Hemoglobin 10.7 g/dL (14.0-18.0)
[2021-12-04 02:14] VITALS: O2SAT 96
[2021-12-04] MEDS: SODIUM CHLORIDE 0.9% IV 1,000 ML 100 ML IV CONT ×2 (02:30→11:49)
[2021-12-04 06:00] VITALS: BP 96/61; PULSE 75; RESP 18; TEMP 36.7; O2SAT 93
[2021-12-04 06:02] LABS: INR 2.3; Partial Thromboplastin Time 41.7 SECONDS (22.3-36.8); Prothrombin Time 24.3 Seconds (11.1-14.7)
[2021-12-04 06:04] LABS: Basophils Percent Auto 0.3 % (0.2-1.2); Eosinophils Absolute Auto 0.2 K/mm3 (0-0.3); Eosinophils Percent Auto 2.2 % (0-4.4); Hematocrit 34.8 % (42.0-52.0); Hemoglobin 11.1 g/dL (14.0-18.0); Immature Granulocyte Absolute 0.04 K/mm3 (0.00-0.031); Immature Granulocyte Percent A 0.5 % (0-0.5); Lymphocytes Absolute Auto 1.09 K/mm3 (0.9-3.2); Lymphocytes Percent Auto 14.8 % (18.3-44.2); Mean Corpuscular HGB Conc 31.9 g/dl (32-36); Mean Corpuscular Hemoglobin 31.1 pg (26-34); Mean Corpuscular Volume 97.5 fl (80-100); Mean Platelet Volume 10.1 fl (7.4-10.4); Monocytes Absolute Auto 0.7 K/mm3 (0.1-0.6); Monocytes Percent Auto 9.1 % (2.6-8.5); Neutrophils Absolute Auto 5.4 K/mm3 (1.3-6.7); Neutrophils Percent Auto 73.1 % (45.5-73.1); Platelet Count Result 218 k/mm3 (150-375); Red Blood Count 3.57 M/mm3 (4.6-6.20); Red Cell Distribution Width 14.9 % (11.5-14.5); White Blood Count 7.4 K/mm3 (4.5-10.0)
[2021-12-04 06:17] LABS: Anion Gap 6 mmol/L (8-16); Blood Urea Nitrogen 68 mg/dL (9-20); Calcium 8.3 mg/dL (8.4-10.2); Carbon Dioxide 26 mmol/L (22-30); Chloride 102 mmol/L (98-107); Estimated CRCL calculation 67 ml/min; Estimated Glomerular Filt Rate > 60; Glucose 138 mg/dL (65-110); Potassium 3.4 mmol/L (3.4-5.0); Sodium 134 mmol/L (137-145)
[2021-12-04 07:36] LABS: Glucose Point of Care 139 mg/dl (65-105)
[2021-12-04] MEDS: HYDROcodone/acetaminophen (*CRX) 7.5-325 MG TABLET 1 TAB PO (08:31)
[2021-12-04] MEDS: POTASSIUM CHLORIDE 20 MEQ TABLET.ER 40 MEQ PO (08:31)
[2021-12-04 08:32] VITALS: PULSE 60
[2021-12-04] MEDS: LINACLOTIDE 145 MCG CAPSULE 290 MCG PO (08:32)
[2021-12-04] MEDS: glyBURIDE 2.5 MG TABLET PO (08:32)
[2021-12-04] MEDS: ATORVASTATIN 40 MG TABLET PO (08:32)
[2021-12-04] MEDS: METOPROLOL TARTRATE 25 MG TABLET PO (08:32)
[2021-12-04] MEDS: DOCUSATE SODIUM 100 MG CAPSULE PO (09:45)
[2021-12-04 11:22] LABS: Glucose Point of Care 207 mg/dl (65-105)
[2021-12-04] MEDS: INSULIN ASPART (*BKC) 100 UNITS/ML SUB-Q (11:52)
[2021-12-04 14:00] VITALS: BP 111/65; PULSE 80; RESP 18; TEMP 36.2; O2SAT 98
--- NOTE | 2021-12-04 14:10 | PM.DS ---
DS: Admitting Diagnosis Discharge Date 12/04/2021 Admitting Diagnosis elevated INR DS: Discharge Diagnosis Discharge Diagnosis (1) Warfarin-induced coagulopathy: Code(s): D68.32 - Hemorrhagic disorder due to extrinsic circulating anticoagulants; T45.515A - Adverse effect of anticoagulants, initial encounter Status: Acute Assessment and Plan: -Patient had hemoptysis and epistaxis due to warfarin induced coagulopathy. -The patient received 1 unit of FFP and 5 of vitamin K in the ER. -His INR has improved down to 2.8 and 2.3 at the time of discharge. -INR managed by PCP Kathi Branham - Coumadin has been restarted. He was previously on 3 mg and 4 mg alternate days. INR on admission was 5.1. Will lower it down to 3 mg daily INR recheck on Wednesday and follow-up with Dr. Branham for further INR monitoring next week. (2) Epistaxis: Code(s): R04.0 - Epistaxis Status: Acute Assessment and Plan: -likely due to elevated INR -intermittent x 1 week with several episodes of hemoptysis -H/H with 2 point drop overnight, likely dilutional but will check serial H/H Which remains stable - resolved by the time of discharge (3) Hemoptysis: Code(s): R04.2 - Hemoptysis Status: Acute Assessment and Plan: -suspect due to epistaxis secondary to elevated INR - CT chest done which did not show any infiltrate -pulm consult and appreciate the recommendations (4) Acute on chronic kidney failure: Qualifiers: Acute renal failure type: unspecified Chronic kidney disease stage: stage 3 (moderate) Chronic kidney disease stage 3 subtype: unspecified whether 3a or 3b Qualified Code(s): N17.9 - Acute kidney failure, unspecified; N18.30 - Chronic kidney disease, stage 3 unspecified Code(s): N17.9 - Acute kidney failure, unspecified; N18.9 - Chronic kidney disease, unspecified Status: Acute Assessment and Plan: -1.7 on admission, baseline appears to be around 1.2 - held his Lasix spironolactone and metolazone. During admission. - He received gentle IVF hydration overnight with improvement back to his baseline. IV fluid discontinued. -the idea of possible GI blood loss was discussed but seems less likely. If we checked a Hemoccult stool it would likely be positive given the patient's significant epistaxis over the last week. Resume his home medication at discharge (5) Acute hypokalemia: Code(s): E87.6 - Hypokalemia Status: Acute Assessment and Plan: - replace and monitor during the hospital stay (6) Syncope and collapse: Code(s): R55 - Syncope and collapse Status: Acute Assessment and Plan: -Patient has been having multiple episodes of syncope and collapse. -Certainly part of these could be due to somnolence and falling asleep but I suspect that he may have some component of orthostatic hypotension given his blood pressures have been soft intermittently since admission. - orthostatic blood pressures negative -Will have nurses ambulate patient with assistance in place patient on fall precautions. -The patient states that his pacemaker was interrogated by his semiautomatic taper operator Dr. Monroy with [facility] recently. he will continue to follow-up with his semiautomatic taper operator at [facility] as previously scheduled. (7) Chronic back pain: Qualifiers: Back pain laterality: bilateral Back pain location: thoracic back pain Qualified Code(s): M54.6 - Pain in thoracic spine; G89.29 - Other chronic pain Code(s): M54.9 - Dorsalgia, unspecified; G89.29 - Other chronic pain Status: Acute Assessment and Plan: Continue home medication DS: Summary Hospital Course Hospital Course: see above Time Spent with Patient Time attestation: Total time spent providing and/or coordinating discharge services: 40 minutes Exam Narrative: General: No acute distress, non toxic
== END 2021-12-04 16:25 | disposition home health service (06) ==
LOC: ANHED 12:09 → ANH3MEDSUR 15:37
PROVIDERS: Internal Medicine; Physician Assistant; Admitting Provider Internal Medicine; Emergency Provider Emergency Medicine; PCP Family Medicine; Visit Provider Internal Medicine
DX: R04.2 Hemoptysis (principal); R04.0 Epistaxis; D68.32 Hemorrhagic disorder due to extrinsic circulating anticoagulants; T45.515A Adverse effect of anticoagulants, initial encounter; E87.6 Hypokalemia; N17.9 Acute kidney failure, unspecified; R55 Syncope and collapse; S22.42XK Multiple fractures of ribs, left side, subsequent encounter for fracture with nonunion; M54.6 Pain in thoracic spine; G89.29 Other chronic pain; I48.91 Unspecified atrial fibrillation; I13.0 Hypertensive heart and chronic kidney disease with heart failure and stage 1 through stage 4 chronic kidney disease, or unspecified chronic kidney disease; I50.9 Heart failure, unspecified; E11.22 Type 2 diabetes mellitus with diabetic chronic kidney disease; N18.30 Chronic kidney disease, stage 3 unspecified; I42.9 Cardiomyopathy, unspecified; N40.0 Benign prostatic hyperplasia without lower urinary tract symptoms; E11.42 Type 2 diabetes mellitus with diabetic polyneuropathy; Z95.0 Presence of cardiac pacemaker; Z79.02 Long term (current) use of antithrombotics/antiplatelets; Z79.01 Long term (current) use of anticoagulants; Z87.891 Personal history of nicotine dependence; Z95.5 Presence of coronary angioplasty implant and graft
CPT/HCPCS: 36415; 36430; 71046; 71250; 80048; 80053; 82948; 84484; 85014; 85018; 85025; 85027; 85610; 85730; 86900; 86901; 93005; 96360; 96361; 99285; A9270; G0378; J1815; J7030; J7050; P9017

== ENCOUNTER 2021-12-06 11:49 | Outpatient (CLI) | payer MEDICARE, SELFPAY ==
[2021-12-06 12:43] LABS: INR 1.3; Prothrombin Time 15.2 Seconds (11.1-14.7)
== END 2021-12-06 11:50 | disposition home or self-care (01) ==
PROVIDERS: PCP Family Medicine; Visit Provider Internal Medicine
DX: D68.32 Hemorrhagic disorder due to extrinsic circulating anticoagulants (principal)
CPT/HCPCS: 36415; 85610

== ENCOUNTER 2021-12-21 22:46 | Emergency (ER) | payer MEDICARE, SELFPAY ==
[2021-12-21 22:51] VITALS: BP 103/68; PULSE 106; RESP 16; O2SAT 100
--- NOTE | 2021-12-21 22:56 | ED.EPISTAXIS ---
HPI - Epistaxis General Chief complaint: Epistaxis Stated complaint: nose bleed since yesterday, on blood thinners Time Seen by Provider: 12/21/21 22:49 History of Present Illness HPI Narrative: 81-year-old male presents the emergency room complaining of epistaxis that has been present since yesterday. Patient states he had his INR drawn yesterday and it was within normal limits. Patient states that he has been packing his nose with gauze since yesterday and has been unable to achieve hemostasis. Denies injury or trauma. Denies lightheadedness or dizziness. Related Data Home Medications Medication Instructions Recorded Confirmed finasteride 5 mg tablet 5 mg PO HS 08/21/19 12/10/21 tamsulosin 0.4 mg capsule 0.4 mg PO HS 03/14/20 12/10/21 metolazone 5 mg tablet 5 mg PO DAILY 07/31/21 12/10/21 spironolactone 25 mg tablet 100 mg PO QAM tablet 07/31/21 12/10/21 atorvastatin 40 mg PO DAILY 08/05/21 12/10/21 clopidogrel 75 mg PO HS 08/05/21 12/10/21 glyburide 2.5 mg PO DAILY 08/05/21 12/10/21 docusate sodium [Colace] 100 mg PO BID PRN 09/28/21 12/10/21 allopurinol 200 mg BYMOUTH DAILY 12/03/21 12/10/21 furosemide 40 mg tablet 80 mg PO BID tablet 12/10/21 12/10/21 Allergies Allergy/AdvReac Type Severity Reaction Status Date / Time No Known Allergies Allergy Verified 12/10/21 11:32 Review of Systems Review of Systems: CONSTITUTIONAL: Denies fever, chills, or sweats. EYES: Denies visual changes, redness, or discharge. ENT: Epistaxis CARDIOVASCULAR: Denies chest pain, palpitations, or edema. RESPIRATORY: Denies cough or dyspnea. GASTROINTESTINAL: Denies abdominal pain, nausea, vomiting, or diarrhea. GENITOURINARY: Denies dysuria or hematuria. SKIN: Denies rash or itching. MUSCULOSKELETAL: Denies back pain, joint pain, or myalgia. NEUROLOGIC: Denies headache, numbness, dizziness, or weakness. PSYCHIATRIC: Denies anxiety or depression. [facility] Past Medical History Medical History A-fib BPH (benign prostatic hyperplasia) Cardiomyopathy Chronic congestive heart failure Echocardiogram 12/20/2020: 4 chamber dilatation, moderate left ventricular enlargement with mild lead depressed systolic function with EF of 40-45% CKD (chronic kidney disease) stage 3, GFR 30-59 ml/min Coronary artery disease Degenerative disc disease Degenerative disc disease Diabetes Gout Hypertension Lumbar spondylosis Osteoarthritis Pacemaker Peripheral neuropathy Right hip pain Surgical History Surgical History History of arthroplasty of left shoulder History of heart artery stent (~07/2021) X2 History of total hip replacement Right side S/p bilateral shoulder joint replacement Status post cardiac pacemaker procedure (~09/2021) Due to AFib with systolic pauses Status post cataract extraction of both eyes with insertion of intraocular lens Family History Family History Father Family history of malignant neoplasm of stomach at the age of 59 Mother Cancer Social History Social History Social History: The patient lives with his of 58 years. They live in a duplex. He ambulates with a cane. He has 2 children. He is retired from [employer]. The patient smoked a pack a cigarettes a day for few years and quit 52 years ago. No alcohol or illicit drugs. Code status: Full code Surrogate decision maker: Primary care physician: Dr. Kathi Branham Smoking packs per day: 1 Smoking cigarettes per day: 20.0 Years smoked: 5 Smoking pack-years: 5.00 Tobacco type: cigarettes Smoking end date: 12/02/69 Alcohol intake: never Substance use: never Substance use type: does not use Gender identity (if verbalized by the patient): Male Spiritual care concerns: No Exam Narra
--- NOTE | 2021-12-21 23:05 | PC.NURSE ---
Assuming care of pt.
[2021-12-21 23:41] VITALS: BP 91/59; PULSE 87; RESP 18; TEMP 36.3; O2SAT 100
[2021-12-21 23:48] LABS: Basophils Percent Auto 0.3 % (0.2-1.2); Eosinophils Absolute Auto 0.1 K/mm3 (0-0.3); Eosinophils Percent Auto 1.4 % (0-4.4); Hematocrit 34.2 % (42.0-52.0); Hemoglobin 10.8 g/dL (14.0-18.0); Immature Granulocyte Absolute 0.06 K/mm3 (0.00-0.031); Immature Granulocyte Percent A 0.7 % (0-0.5); Lymphocytes Absolute Auto 0.92 K/mm3 (0.9-3.2); Lymphocytes Percent Auto 10.3 % (18.3-44.2); Mean Corpuscular HGB Conc 31.6 g/dl (32-36); Mean Corpuscular Hemoglobin 30.5 pg (26-34); Mean Corpuscular Volume 96.6 fl (80-100); Mean Platelet Volume 9.8 fl (7.4-10.4); Monocytes Absolute Auto 0.8 K/mm3 (0.1-0.6); Monocytes Percent Auto 9.4 % (2.6-8.5); Neutrophils Percent Auto 77.9 % (45.5-73.1); Platelet Count Result 297 k/mm3 (150-375); Red Blood Count 3.54 M/mm3 (4.6-6.20); Red Cell Distribution Width 14.7 % (11.5-14.5)
[2021-12-21 23:58] LABS: Anion Gap 10 mmol/L (8-16); Blood Urea Nitrogen 118 mg/dL (9-20); Calcium 8.5 mg/dL (8.4-10.2); Carbon Dioxide 27 mmol/L (22-30); Chloride 97 mmol/L (98-107); Estimated Glomerular Filt Rate 42; Glucose 197 mg/dL (65-110); INR 3.6; Potassium 3.2 mmol/L (3.4-5.0); Prothrombin Time 34.8 Seconds (11.1-14.7); Sodium 134 mmol/L (137-145)
[2021-12-21 23:59] LABS: Partial Thromboplastin Time 54.3 SECONDS (22.3-36.8)
[2021-12-22 00:37] VITALS: BP 95/72; PULSE 73; RESP 16; O2SAT 100
== END 2021-12-22 00:37 | disposition home or self-care (01) ==
PROVIDERS: Emergency Provider Nurse Practitioner Family; PCP Family Medicine
DX: R04.0 Epistaxis (principal); I48.91 Unspecified atrial fibrillation; I42.9 Cardiomyopathy, unspecified; E11.22 Type 2 diabetes mellitus with diabetic chronic kidney disease; I12.9 Hypertensive chronic kidney disease with stage 1 through stage 4 chronic kidney disease, or unspecified chronic kidney disease; N18.30 Chronic kidney disease, stage 3 unspecified; I25.10 Atherosclerotic heart disease of native coronary artery without angina pectoris; M10.9 Gout, unspecified; N40.0 Benign prostatic hyperplasia without lower urinary tract symptoms; M47.816 Spondylosis without myelopathy or radiculopathy, lumbar region; M19.90 Unspecified osteoarthritis, unspecified site; E11.42 Type 2 diabetes mellitus with diabetic polyneuropathy; Z98.42 Cataract extraction status, left eye; Z98.41 Cataract extraction status, right eye; Z95.0 Presence of cardiac pacemaker; Z96.641 Presence of right artificial hip joint; Z96.612 Presence of left artificial shoulder joint; Z96.611 Presence of right artificial shoulder joint; Z96.1 Presence of intraocular lens; Z95.5 Presence of coronary angioplasty implant and graft; Z87.891 Personal history of nicotine dependence; Z79.01 Long term (current) use of anticoagulants; Z79.84 Long term (current) use of oral hypoglycemic drugs
CPT/HCPCS: 30901; 36415; 80048; 85025; 85610; 85730; 99283; A9270

== ENCOUNTER 2022-01-10 13:38 | Emergency (ER) | payer MEDICARE, SELFPAY ==
[2022-01-10 13:52] VITALS: BP 101/57; PULSE 105; RESP 18; TEMP 36.4; O2SAT 98
--- NOTE | 2022-01-10 14:19 | ED.SKABFB ---
HPI - Skin/Abscess/Foreign Bdy General Chief complaint: Skin/Abscess/Foreign Body Stated complaint: rash on rt leg Time Seen by Provider: 01/10/22 14:01 Source: patient and RN notes reviewed Mode of arrival: ambulatory Limitations: no limitations History of Present Illness HPI narrative: Patient presents today with family complaining of wounds to the right lower leg x5 to 6 days. Patient is unsure how he has sustained these wounds, but likely scraped his lower leg on something. He has sustained 2 open wounds to his lower leg and has redness surrounding them. He currently rates his pain 4/10 and uses medical cannabis. He is not up-to-date on his tetanus vaccine. He has been keeping covered with gauze. History of type 2 diabetes. MD complaint: other (Wound) Related Data Home Medications Medication Instructions Recorded Confirmed finasteride 5 mg tablet 5 mg PO HS 08/21/19 12/10/21 tamsulosin 0.4 mg capsule 0.4 mg PO HS 03/14/20 12/10/21 metolazone 5 mg tablet 5 mg PO DAILY 07/31/21 12/10/21 spironolactone 25 mg tablet 100 mg PO QAM tablet 07/31/21 12/10/21 atorvastatin 40 mg PO DAILY 08/05/21 12/10/21 clopidogrel 75 mg PO HS 08/05/21 12/10/21 docusate sodium [Colace] 100 mg PO BID PRN 09/28/21 12/10/21 allopurinol 200 mg BYMOUTH DAILY 12/03/21 12/10/21 furosemide 40 mg tablet 80 mg PO BID tablet 12/10/21 12/10/21 glyburide 2.5 mg tablet 5 mg PO DAILY tablet 01/02/22 Allergies Allergy/AdvReac Type Severity Reaction Status Date / Time No Known Allergies Allergy Verified 01/10/22 14:01 Review of Systems Review of Systems: CONSTITUTIONAL: Denies body aches, fever, chills, or sweats. EYES: Denies visual changes, redness, or discharge. ENT: Denies rhinorrhea, congestion, sore throat, or otalgia. CARDIOVASCULAR: Denies chest pain, palpitations, or edema. RESPIRATORY: Denies cough or dyspnea. GASTROINTESTINAL: Denies abdominal pain, nausea, vomiting, or diarrhea. GENITOURINARY: Denies dysuria or hematuria. SKIN: Denies rash, itching. + Wounds and redness to right lower leg MUSCULOSKELETAL: Denies back pain, joint pain, or myalgia. NEUROLOGIC: Denies headache, numbness, tingling, or weakness. PSYCH: Denies depression or anxiety. [facility] Past Medical History Medical History A-fib BPH (benign prostatic hyperplasia) Cardiomyopathy Chronic congestive heart failure Echocardiogram 12/20/2020: 4 chamber dilatation, moderate left ventricular enlargement with mild lead depressed systolic function with EF of 40-45% CKD (chronic kidney disease) stage 3, GFR 30-59 ml/min Coronary artery disease Degenerative disc disease Degenerative disc disease Diabetes Gout Hypertension Lumbar spondylosis Osteoarthritis Pacemaker Peripheral neuropathy Right hip pain Surgical History Surgical History History of arthroplasty of left shoulder History of heart artery stent (~07/2021) X2 History of total hip replacement Right side S/p bilateral shoulder joint replacement Status post cardiac pacemaker procedure (~09/2021) Due to AFib with systolic pauses Status post cataract extraction of both eyes with insertion of intraocular lens Family History Family History Father Family history of malignant neoplasm of stomach at the age of 59 Mother Cancer Social History Social History Social History: The patient lives with his of 58 years. They live in a duplex. He ambulates with a cane. He has 2 children. He is retired from [employer]. The patient smoked a pack a cigarettes a day for few years and quit 52 years ago. No alcohol or illicit drugs. Code status: Full code Surrogate decision maker: Primary care physician: Dr. Kathi Branham Smoking packs per day:
[2022-01-10] MEDS: TETANUS/DIPHTHERIA TOXOIDS ADSORB 0.5 ML VIAL (*BKC) IM (14:25)
== END 2022-01-10 14:40 | disposition home or self-care (01) ==
PROVIDERS: Emergency Provider Nurse Practitioner; PCP Family Medicine
DX: S81.801A Unspecified open wound, right lower leg, initial encounter (principal); L03.115 Cellulitis of right lower limb; X58.XXXA Exposure to other specified factors, initial encounter; Z23 Encounter for immunization; I48.91 Unspecified atrial fibrillation; N40.0 Benign prostatic hyperplasia without lower urinary tract symptoms; I13.0 Hypertensive heart and chronic kidney disease with heart failure and stage 1 through stage 4 chronic kidney disease, or unspecified chronic kidney disease; E11.22 Type 2 diabetes mellitus with diabetic chronic kidney disease; N18.30 Chronic kidney disease, stage 3 unspecified; I50.9 Heart failure, unspecified; Z79.84 Long term (current) use of oral hypoglycemic drugs; I25.10 Atherosclerotic heart disease of native coronary artery without angina pectoris; M10.9 Gout, unspecified; M19.90 Unspecified osteoarthritis, unspecified site; E11.42 Type 2 diabetes mellitus with diabetic polyneuropathy; Z95.5 Presence of coronary angioplasty implant and graft; M47.816 Spondylosis without myelopathy or radiculopathy, lumbar region; Z96.612 Presence of left artificial shoulder joint; Z96.611 Presence of right artificial shoulder joint; Z96.641 Presence of right artificial hip joint; Z98.42 Cataract extraction status, left eye; Z98.41 Cataract extraction status, right eye; Z96.1 Presence of intraocular lens; Z95.0 Presence of cardiac pacemaker
CPT/HCPCS: 87070; 87075; 87205; 90471; 90714; 99213; G0463

== ENCOUNTER 2022-03-05 07:47 | Outpatient (RCR) | payer MEDICARE, SELFPAY ==
[2022-01-28 08:53] VITALS: BMI 33.5
--- NOTE | 2022-03-18 10:39 | PCWOUND ---
WOCN NOTE patient did not show up for appointment.
--- NOTE | 2022-03-18 10:49 | PCWOUND ---
WOCN NOTE Patient did not show up for his appointment. Call made to patient, who apologized for missing. States he had just been released from the hospital yesterday. States his legs are doing well, no follow up appointment made at this time. Patient to contact wound center if needed.
== END 2022-04-28 23:59 | disposition home or self-care (01) ==
LOC: ANHWOC 07:47
PROVIDERS: PCP Family Medicine; Visit Provider Family Medicine
DX: I83.009 Varicose veins of unspecified lower extremity with ulcer of unspecified site (principal); L97.909 Non-pressure chronic ulcer of unspecified part of unspecified lower leg with unspecified severity
CPT/HCPCS: 99212; G0463

== ENCOUNTER 2022-08-18 12:20 | Outpatient (RCR) | payer MEDICARE, SELFPAY ==
[2022-08-18 13:00] VITALS: BMI 33.5
== END 2022-10-30 15:47 | disposition home or self-care (01) ==
LOC: ANHWOC 12:20
PROVIDERS: PCP Family Medicine; Visit Provider Family Medicine
DX: I83.009 Varicose veins of unspecified lower extremity with ulcer of unspecified site (principal); L97.909 Non-pressure chronic ulcer of unspecified part of unspecified lower leg with unspecified severity
CPT/HCPCS: 99214; G0463

== ENCOUNTER 2022-11-18 12:06 | Outpatient (RCR) | payer MEDICARE, SELFPAY ==
[2022-11-18 12:30] VITALS: BMI 35.2
== END 2023-01-11 12:35 | disposition home or self-care (01) ==
LOC: ANHWOC 12:06
PROVIDERS: PCP Family Medicine; Visit Provider Physician Assistant Medical
DX: E11.621 Type 2 diabetes mellitus with foot ulcer (principal); L97.528 Non-pressure chronic ulcer of other part of left foot with other specified severity
CPT/HCPCS: 99212; G0463

== ENCOUNTER 2022-12-11 13:29 | Emergency (ER) | payer MEDICARE, SELFPAY ==
--- NOTE | 2022-12-11 13:37 | ED.GENADULT ---
HPI - General Adult General Chief complaint: Skin/Abscess/Foreign Body Stated complaint: Sore growth on neck; Time Seen by Provider: 12/11/22 13:41 Source: patient, RN notes reviewed and old records reviewed Mode of arrival: ambulatory Limitations: no limitations History of Present Illness HPI narrative: 82-year-old male presents to the [facility] with a sore area to his neck. it is red, raised states it has been there for 3-4 days. Denies fevers. 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 [facility], was referred to the [facility] Onset (ago): day(s) (3-4) Related Data Home Medications Medication Instructions Recorded Confirmed atorvastatin 40 mg tablet 40 mg PO DAILY 08/05/21 12/11/22 clopidogrel 75 mg tablet 75 mg PO HS 08/05/21 12/11/22 furosemide 40 mg tablet 80 mg PO DAILY 04/13/22 12/11/22 tamsulosin 0.4 mg capsule 0.4 mg PO BID 04/13/22 12/11/22 Allergies Allergy/AdvReac Type Severity Reaction Status Date / Time No Known Allergies Allergy Verified 12/11/22 13:46 Review of Systems Review of Systems: All systems reviewed & are unremarkable except as noted in HPI and below Constitutional: Constitutional: Reports no additional constitutional complaints Eyes: Eyes: Reports no additional eye complaints ENT: Reports system reviewed and no additional complaints, except as documented Cardiovascular: Cardiovascular: Reports no additional cardiovascular complaints, Denies chest pain and Denies dyspnea Respiratory: Respiratory: Reports no additional respiratory complaints, Denies chest congestion, Denies cough and Denies dyspnea Gastrointestinal: Gastrointestinal: Reports no additional gastrointestinal complaints, Denies abdominal pain, Denies nausea and Denies vomiting Musculoskeletal: Musculoskeletal: Reports no additional musculoskeletal complaints Integumentary/Breasts: Skin/Breast: Reports as per HPI Neurologic: Reports system reviewed and no additional complaints, except as documented Psychiatric: Psychiatric: Reports no additional psychiatric complaints Allergic/Immunologic: Allergic/Immunologic: Reports no additional allergic/immunologic complaints [facility] Past Medical History Medical History A-fib Acute hyperglycemia Acute hypokalemia Acute hypokalemia Acute hyponatremia Acute on chronic kidney failure Acute renal insufficiency Acute UTI Arthritis BPH (benign prostatic hyperplasia) Bradycardia with 31-40 beats per minute Cardiomyopathy Cellulitis of left leg Chest pain Chronic congestive heart failure Echocardiogram 12/20/2020: 4 chamber dilatation, moderate left ventricular enlargement with mild lead depressed systolic function with EF of 40-45% CKD (chronic kidney disease) stage 3, GFR 30-59 ml/min Coronary artery disease Degenerative disc disease Diabetes Diastolic heart failure Epistaxis Essential hypertension Fever Foot callus Gout Hemoptysis Hepatic cyst Hypertension Hypotension Left leg cellulitis Left rib fracture Osteoarthritis Osteoarthritis 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 sides of body Pacemaker Peripheral neuropathy Renal cyst Sepsis Syncope Syncope and collapse Tachy-demetrio syndrome Wound of left foot Surgical History Surgical History History of arthroplasty of left shoulder History of heart artery stent (~07/2021) X2 History of total hip replacement Right side S/p bilateral shoulder joint replacement Status post cardiac pacemaker procedure (~09/2021) Due to AFib with systolic pauses Status post cataract extraction of both eyes with insertion of intraocular lens Family History Family History Father Family history of malignant neoplasm of stomach at the age of 59 Mother Cancer Social History Social History S
[2022-12-11 13:43] VITALS: BP 104/63; PULSE 122; RESP 20; TEMP 36.5; O2SAT 96
== END 2022-12-11 14:28 | disposition home or self-care (01) ==
PROVIDERS: Emergency Provider Nurse Practitioner; PCP Family Medicine
DX: L02.11 Cutaneous abscess of neck (principal); I48.91 Unspecified atrial fibrillation; I13.0 Hypertensive heart and chronic kidney disease with heart failure and stage 1 through stage 4 chronic kidney disease, or unspecified chronic kidney disease; E11.22 Type 2 diabetes mellitus with diabetic chronic kidney disease; N18.30 Chronic kidney disease, stage 3 unspecified; I50.9 Heart failure, unspecified; Z87.891 Personal history of nicotine dependence; Z79.01 Long term (current) use of anticoagulants
CPT/HCPCS: 87070; 87205; 99213; G0463

== ENCOUNTER 2022-12-29 12:16 | Emergency (ER) | payer MEDICARE, SELFPAY ==
--- NOTE | ~2022-12-29 | XR_ITS ---
EXAMINATION: XR chest 2V DATE: 12/29/2022 13:20 INDICATION: Hemoptysis. TECHNIQUE: Frontal and lateral views of the chest were obtained on 3 radiographs. COMPARISON: Chest 2 views 12/02/2021 FINDINGS: The chest demonstrates clear lungs without pneumonia, pleural effusion, or pneumothorax. Th e heart size is normal. There is a left chest pacer lead in right ventricle. There are bilateral shou lder arthroplasties. There are old healed left rib fractures. IMPRESSION: 1. No acute cardiopulmonary disease. Reviewed, dictated and finalized at location A.
--- NOTE | ~2022-12-29 | CT_ITS ---
EXAMINATION: CT diagnostic chest w con DATE: 12/29/2022 20:57 INDICATION: Hempotysis TECHNIQUE: Computed tomography (CT) of the chest was performed with 100 mL Omnipaque-350 intravenous contrast. Automated exposure control and iterative reconstruction technique were employed. The dose-l ength product was 582.28 mGy-cm. COMPARISON: 12/02/2021, x-ray chest 12/29/2022. FINDINGS: CHEST: Thoracic aorta: Mild arch calcification. Lung parenchyma and airways: Senescent changes. Dependent atelectasis/scar. Airways are patent. Thoracic inlet, axillae and chest wall: Thyroid is obscured by metal artifact. Left chest pacer with intact lead. Bilateral shoulder arthroplasties. Left gynecomastia, possibly asymmetric noting that th e right breast is not completely included within the [id number]. No axillary lymphadenopathy. Mediastinum: No mass or lymphadenopathy. Heart and pericardium: Normal heart size. No pericardial effusion. Coronary artery calcifications: Coronary stents. Pleura: No effusion or mass. Upper abdomen: No significant finding. Thoracic bones: No acute osseous finding in the chest. IMPRESSION: No acute thoracic process detected. Possible asymmetric gynecomastia on the left, consider outpatient referral for tomography and breast ultrasound, particularly if there is palpable abnormality or asym metry. Reviewed, dictated and finalized at location K. IMPRESSION: No acute thoracic process detected. Possible asymmetric gynecomastia on the lef t, consider outpatient referral for tomography and breast ultrasound, particula rly if there is palpable abnormality or asymmetry.
--- NOTE | 2022-12-29 12:34 | ECG_ITS ---
Measurements Intervals [place] Rate: 93 P: IA: 0 QRS: 89 QRSD: 109 T: -6 QT: 355 QTc: 444 Interpretive Statements ATRIAL FIBRILLATION ABNORMAL QRS-T ANGLE [QRS-T AXIS DIFFERENCE > 60] COMPARED TO ECG 12/02/2021 10:14:37 NO SIGNIFICANT CHANGES Electronically Signed On 12-29-2022 16:17:03 CDT by Yumiko Restrepo M.D.
[2022-12-29 13:21] VITALS: BP 103/66; PULSE 115; RESP 16; TEMP 36.8; O2SAT 97
[2022-12-29 14:05] LABS: Basophils Percent Auto 0.1 % (0.2-1.2); Eosinophils Percent Auto 0.3 % (0-4.4); Hematocrit 41.8 % (42.0-52.0); Hemoglobin 13.4 g/dL (14.0-18.0); Immature Granulocyte Absolute 0.05 K/mm3 (0.00-0.031); Immature Granulocyte Percent A 0.7 % (0-0.5); Lymphocytes Absolute Auto 0.33 K/mm3 (0.9-3.2); Lymphocytes Percent Auto 4.4 % (18.3-44.2); Mean Corpuscular HGB Conc 32.1 g/dl (32-36); Mean Corpuscular Hemoglobin 30.5 pg (26-34); Mean Corpuscular Volume 95.2 fl (80-100); Mean Platelet Volume 10.2 fl (7.4-10.4); Monocytes Absolute Auto 0.3 K/mm3 (0.1-0.6); Monocytes Percent Auto 4.4 % (2.6-8.5); Neutrophils Absolute Auto 6.7 K/mm3 (1.3-6.7); Neutrophils Percent Auto 90.1 % (45.5-73.1); Platelet Count Result 214 k/mm3 (150-375); Red Blood Count 4.39 M/mm3 (4.6-6.20); Red Cell Distribution Width 14.7 % (11.5-14.5); White Blood Count 7.4 K/mm3 (4.5-10.0)
[2022-12-29 14:15] LABS: INR 3.4
[2022-12-29 14:16] LABS: Partial Thromboplastin Time 51.5 SECONDS (22.3-36.8)
[2022-12-29 14:23] LABS: Alanine Aminotransferase 22 U/L (6-50); Albumin Level 4.1 g/dL (3.5-5.1); Alkaline Phosphatase 131 U/L (38-126); Anion Gap 10 mmol/L (8-16); Aspartate Amino Transferase 26 U/L (17-59); Bilirubin,Total 1.3 mg/dL (0.2-1.3); Blood Urea Nitrogen 50 mg/dL (9-20); Calcium 8.4 mg/dL (8.4-10.2); Carbon Dioxide 23 mmol/L (22-30); Chloride 102 mmol/L (98-107); Estimated CRCL calculation 50 ml/min; Estimated Glomerular Filt Rate 58; Glucose 159 mg/dL (65-110); Lipase 93 U/L (23-300); Potassium 3.6 mmol/L (3.4-5.0); Sodium 135 mmol/L (137-145)
[2022-12-29 14:33] LABS: Troponin I < 0.012 ng/mL (0.000-0.034)
[2022-12-29 14:34] LABS: Burr Cells 1+ (NORMAL); Platelet Estimate Adequate (Adequate); Schistocytes None Seen (NORMAL)
[2022-12-29 16:51] VITALS: BP 99/61; PULSE 82; RESP 18; TEMP 36.7; O2SAT 96
--- NOTE | 2022-12-29 19:19 | ED.GENADULT ---
HPI - General Adult General Chief complaint: Recheck/Abnormal Lab/Rx Stated complaint: Referral Time Seen by Provider: 12/29/22 19:03 History of Present Illness HPI narrative: This is an 82-year-old male presenting ED with a chief complaint of hemoptysis. Patient takes warfarin for his AFib. patient states when he awoke this morning he coughed up some bright red blood. It then resolved. He then spoke with his doctor advised him to come to the hospital to be evaluated. He denies chest pain, shortness of breath. His hemoptysis has resolved. He has not have any nose bleeds or any other evidence of bleeding at this time. He has no other complaints outside of some chronic pain issues. He takes warfarin 3 mg daily for 6 days and then 4 mg on Mondays. He has not taking his warfarin today. Related Data Home Medications Medication Instructions Recorded Confirmed atorvastatin 40 mg tablet 40 mg PO DAILY 08/05/21 12/11/22 clopidogrel 75 mg tablet 75 mg PO HS 08/05/21 12/11/22 furosemide 40 mg tablet 80 mg PO DAILY 04/13/22 12/11/22 tamsulosin 0.4 mg capsule 0.4 mg PO BID 04/13/22 12/11/22 finasteride 5 mg tablet 5 mg PO DAILY 12/29/22 lactobacillus combination no.9 4 4,000 mmu cells PO DAILY 12/29/22 billion cell capsule (Adult 50 Plus Probiotic) solifenacin 5 mg tablet 5 mg PO DAILY 12/29/22 Allergies Allergy/AdvReac Type Severity Reaction Status Date / Time No Known Allergies Allergy Verified 12/29/22 10:57 [facility] Past Medical History Medical History A-fib Acute hyperglycemia Acute hypokalemia Acute hypokalemia Acute hyponatremia Acute on chronic kidney failure Acute renal insufficiency Acute UTI Arthritis BPH (benign prostatic hyperplasia) Bradycardia with 31-40 beats per minute Cardiomyopathy Cellulitis of left leg Chest pain Chronic congestive heart failure Echocardiogram 12/20/2020: 4 chamber dilatation, moderate left ventricular enlargement with mild lead depressed systolic function with EF of 40-45% CKD (chronic kidney disease) stage 3, GFR 30-59 ml/min Coronary artery disease Degenerative disc disease Diabetes Diastolic heart failure Epistaxis Essential hypertension Fever Foot callus Gout Hemoptysis Hepatic cyst Hypertension Hypotension Left leg cellulitis Left rib fracture Osteoarthritis Osteoarthritis 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 sides of body Pacemaker Peripheral neuropathy Renal cyst Sepsis Syncope Syncope and collapse Tachy-demetrio syndrome Wound of left foot Surgical History Surgical History History of arthroplasty of left shoulder History of heart artery stent (~07/2021) X2 History of total hip replacement Right side S/p bilateral shoulder joint replacement Status post cardiac pacemaker procedure (~09/2021) Due to AFib with systolic pauses Status post cataract extraction of both eyes with insertion of intraocular lens Family History Family History Father Family history of malignant neoplasm of stomach at the age of 59 Mother Cancer Social History Social History Social History: The patient lives with his of 59 years. They live in a duplex. He ambulates with a cane. He has 2 children. He is retired from [employer]. The patient smoked a pack a cigarettes a day for few years and quit 52 years ago. No alcohol or illicit drugs. Code status: Full code Surrogate decision maker: Primary care physician: Dr. Kathi Branham Smoking packs per day: 1 Smoking cigarettes per day: 20.0 Years smoked: 5 Smoking pack-years: 5.00 Smoking status: Former smoker Tobacco type: cigarettes Smoking end date: 12/02/69 Alcohol intake: never Substance use: never Substance use type: does not use Lack of Transporta
== END 2022-12-29 22:01 | disposition home or self-care (01) ==
PROVIDERS: Emergency Medicine; Emergency Provider Emergency Medicine; PCP Family Medicine
DX: R04.2 Hemoptysis (principal); I48.91 Unspecified atrial fibrillation; R79.1 Abnormal coagulation profile; I13.0 Hypertensive heart and chronic kidney disease with heart failure and stage 1 through stage 4 chronic kidney disease, or unspecified chronic kidney disease; E11.22 Type 2 diabetes mellitus with diabetic chronic kidney disease; I50.30 Unspecified diastolic (congestive) heart failure; N18.30 Chronic kidney disease, stage 3 unspecified; I42.9 Cardiomyopathy, unspecified; N40.0 Benign prostatic hyperplasia without lower urinary tract symptoms; M10.9 Gout, unspecified; M19.90 Unspecified osteoarthritis, unspecified site; E11.42 Type 2 diabetes mellitus with diabetic polyneuropathy; Z79.01 Long term (current) use of anticoagulants; Z79.02 Long term (current) use of antithrombotics/antiplatelets; Z95.5 Presence of coronary angioplasty implant and graft; Z95.0 Presence of cardiac pacemaker; Z87.891 Personal history of nicotine dependence; Z79.84 Long term (current) use of oral hypoglycemic drugs
CPT/HCPCS: 36415; 71046; 71260; 80053; 83690; 84484; 85025; 85610; 85730; 93005; 99284; Q9967

== ENCOUNTER 2023-03-15 10:00 | Outpatient (RCR) | payer MEDICARE, SELFPAY ==
--- NOTE | 2022-12-23 11:41 | PTOPEVAL1 ---
Assessment and note entered by Marivel Dunn, PT, CLT Evaluation Information Assessment Status Evaluation Diagnosis lymphedema both legs Onset May 2022 Reported Pain Level Pain Score 8: Self Report Additional Pain Score Comments back pain, has chronic pain with stenosis of spine Assessment PT Clinical Summary Frederick has the diagnosis of bilateral LE lymphedema He has a history of R THR, a fib, diabetes and cardiac stents, pacemaker. He has tissue changes with fibrotic skin, tight, shiny and discoloration of skin over both lower legs. Skilled PT services are indicated for complete decongestive therapy--manual lymph drainage, compression wraps, compression garment and education for management of lymphedema and compression garment for him to obtain. Plan of Care Interventions Manual Lymph Drainage, compression wraps Patient/Caregiver Educati,Therapeutic Exercise PT Services Indicated Yes Treatment Frequency and 0-2x/wk for 6 weeks, due to therapist availability Duration , treatment cannot be initiated for few weeks These treatments will address the objective and functional deficits as defined above. The patient will be advanced safely and appropriately in order for the patient to progress towards his/her prior level of function. Additional exercises will be introduced and as well as a comprehensive home exercise program upon discharge, if needed, ?to ensure carryover of functional gains achieved in the clinic. This treatment plan has been reviewed and agreement upon by the patient.
--- NOTE | 2023-02-10 10:52 | PCPTNOTE ---
pt called and canceled appt, 02-08-23, stated he has water blisters and swollen ; reeval scheduled 02-15-23
--- NOTE | 2023-02-15 10:43 | PTOPPROG ---
Assessment and note entered by Marivel Dunn, PT, CLT Evaluation Information Assessment Status Progress Diagnosis lymphedema both legs Onset May 2022 Subjective Information En reports: was in the hospital for one day-- tests from being on the blood thinner and was throwing up blood; legs are more hard and swollen have not been here due to issues with his , she was hospitalized and then he was ill too; am taking an antibiotic, for the past few days, gave for one week---due to legs red, no fever; gave him; Assessment PT Clinical Summary Frederick has not been here since the initial eval in November; he had medical issues with himself and his ; He returns today for reevaluation to restart therapy and has reduction kit. Since the initial evaluation, both legs have increased in size with the circumferential measurements, with more redness, firm tissue and superficial wound over R anterior doll. Continue PT treatments for lymphedema management of both legs. Plan of Care Interventions Intermittent Compression pump,Lymphedema Compression Wrap Manual Therapy,Patient/Caregiver Education, Therapeutic Exercise PT Services Indicated Yes Treatment Frequency and 1-2 x/wk x 6 weeks, per pt request, does not want Duration to attend 2x/wk These treatments will address the objective and functional deficits as defined above. The patient will be advanced safely and appropriately in order for the patient to progress towards his/her prior level of function. Additional exercises will be introduced and as well as a comprehensive home exercise program upon discharge, if needed, ?to ensure carryover of functional gains achieved in the clinic. This treatment plan has been reviewed and agreement upon by the patient.
--- NOTE | 2023-02-25 13:00 | PCPTNOTE ---
Patient did not show up for scheduled appointment this date. Called, unable to leave voicemail. This is Pt's first N/S.
--- NOTE | 2023-03-15 10:43 | PCPTNOTE ---
pt canceled Wed appt, due to having too many appointments. No other appointment times available at this time.
--- NOTE | 2023-03-23 09:57 | PCPTNOTE ---
This treatment is being continued on visit number [id number]. Please see documentation on both accounts to view progress. Completed interventions, outcomes, and problems have been marked as Inactive to facilitate the copying of the Care plan routine for recurring accounts.
== END 2023-03-22 10:37 | disposition home or self-care (01) ==
LOC: ANHPT 10:00
PROVIDERS: PCP Family Medicine; Visit Provider Physician Assistant Medical
DX: R60.0 Localized edema (principal); I89.0 Lymphedema, not elsewhere classified
CPT/HCPCS: 97016; 97140; 97161; 99199

== ENCOUNTER 2023-03-31 13:30 | Outpatient (RCR) | payer MEDICARE, SELFPAY ==
--- NOTE | 2023-03-23 10:05 | PCPTNOTE ---
This treatment is being continued from visit number [id number]. Please see documentation on both accounts to view progress. Completed interventions, outcomes, and problems have been marked as Inactive to facilitate the copying of the Care plan routine for recurring accounts.
--- NOTE | 2023-03-31 14:26 | PTOPDC ---
Assessment and note entered by Marivel Dunn, PT Evaluation Information Assessment Status Discharge Diagnosis lymphedema both legs Onset May 2022 Subjective Information Frederick reports: have been using the velcro garment- switching from one leg to the other; did not put the compression sock on and did not bring it today; have been doing the leg exercises; back been hurting more and have not slept much for the past 3 days, only about 3 hours total sleep; wants to be done with therapy because he has a hard time getting here and between him and his , they have alot of dr kahn. And his back pain and driving here are hard for him. Reported Pain Level Pain Score Self Report Additional Pain Score Comments pain range of 0-9/10 in back; hurting and cannot sleep Assessment PT Clinical Summary Frederick has received a total of 8 PT sessions. He had one no show and one canceled appointment. He has attended 1 x/wk and one week had 2x/wk. Compared to the last reevaluation: circumferential measurements of his legs have decreased: R by 24 cm and L by 29.9 cm; he has obtained one velcro reduction lower leg garment and using it; has calf high compression socks, but has not tried them on and did not bring them in to therapy to be checked; During PT sessions, an intermittent compression pump was used with pt and he has softening of the lower leg tissue. He continues to have redness and fibrotic tissue over his lower legs due to not maintaining compression with lower leg garment. When he does have the garments on, tissue softens but does not stay flexibile. Education has been completed for: self Manual lymph drainage, leg exercises, elevation of legs, walking as tolerated, skin care, garments. The goals were partially met. Discharge PT services. Plan of Care PT Services Indicated No
== END 2023-06-14 10:31 | disposition home or self-care (01) ==
LOC: ANHPT 13:30
PROVIDERS: PCP Family Medicine; Visit Provider Physician Assistant Medical
DX: R60.0 Localized edema (principal); I89.0 Lymphedema, not elsewhere classified
CPT/HCPCS: 97016; 97140

== ENCOUNTER 2023-05-24 08:18 | Inpatient (IN) | payer MEDICARE, SELFPAY ==
[2023-05-24] VITALS (30 sets, daily range): BP systolic 79–128; BP diastolic 34–99; PULSE 63–98; RESP 13–25; TEMP 35.7–36.4; O2SAT 91–100; BMI 35.6
--- NOTE | ~2023-05-24 | XR_ITS ---
Portable chest x-ray Comparison: 12/29/2022 Clinical History: Cough Findings: Lungs are clear, without focal consolidation or pleural effusion. Cardiomediastinal silho uette is stable, with pacemaker device. Left shoulder arthroplasty again noted. Impression: Clear lungs. Pacemaker device. Reviewed, dictated and finalized at [facility]. Impression: Clear lungs. Pacemaker device.
--- NOTE | ~2023-05-24 | CT_ITS ---
Non-contrast Head CT History: Status post fall COMPARISON: 09/28/2021 Technique: Axial non-contrast imaging of the brain was performed. Dose reduction technique was used on this scan by utilizing automated exposure control and iterative reconstruction technique. The dose -length product (DLP) was 681.00 mGy-cm. Findings: There is no evidence of intracranial hemorrhage, mass lesion, or acute infarct. Brain par enchyma appears normal. The ventricles and subarachnoid spaces are normal in size. The calvarium ap pears normal. The visualized paranasal sinuses and mastoid air cells are clear. Impression: No significant abnormality seen. Reviewed, dictated and finalized at location . Impression: No significant abnormality seen.
--- NOTE | ~2023-05-24 | XR_ITS ---
Left foot Technique: AP, oblique, and lateral views were obtained. Clinical History: Wound Findings: No acute fracture or dislocation is seen. There is hallux valgus with mild degenerative savana nge at the first MTP joint. There is moderate degenerative change of the midfoot articulations. Soft tissues are unremarkable. Impression: Moderate degenerative change at the midfoot articulations. Hallux valgus with mild degenerative change at the first MTP joint. No definite radiographic evidence for osteomyelitis. Reviewed, dictated and finalized at location . Impression: Moderate degenerative change at the midfoot articulations. Hallux valgus with mild degenerative change at the first MTP joint. No definite radiographic evidence for osteomyelitis.
--- NOTE | ~2023-05-24 | US_ITS ---
EXAMINATION: US venous doppler [facility] DATE: 05/24/2023 13:46 INDICATION: Lower limb swelling TECHNIQUE: Grayscale ultrasound images without and with compression and Doppler ultrasound images of the bilateral lower extremity veins were obtained. COMPARISON: 08/01/2020 FINDINGS: The visualized portions of right common femoral vein, profunda (deep) femoral vein, femoral vein, pop liteal vein, posterior tibial veins, peroneal veins, gastrocnemius vein and greater saphenous vein ou tflow are patent. The visualized portions of left common femoral vein, profunda femoral vein, femoral vein, popliteal v ein, posterior tibial veins, peroneal veins, gastrocnemius vein and greater saphenous vein outflow ar e patent. IMPRESSION: 1. No deep venous thrombosis in either lower limb. Reviewed, dictated and finalized at location A.
--- NOTE | 2023-05-24 08:32 | ECG_ITS ---
Measurements Intervals [place] Rate: 86 P: MN: 0 QRS: 92 QRSD: 113 T: -34 QT: 397 QTc: 477 Interpretive Statements ATRIAL FIBRILLATION WITH ABERRANT CONDUCTION OR VENTRICULAR PREMATURE COMPLEXES BORDERLINE RIGHT AXIS DEVIATION [QRS AXIS > 90] POSSIBLE INFERIOR MYOCARDIAL INFARCTION , OF INDETERMINATE AGE [30 ms Q WAVE IN II/aVF] ABNORMAL ECG COMPARED TO ECG 12/29/2022 13:44:10 ABERRANT CONDUCTION OF SUPRAVENTRICULAR BEAT(S) NOW PRESENT Electronically Signed On 05-24-2023 12:03:24 CDT by Dayton Gong M.D.
--- NOTE | 2023-05-24 08:58 | ED.SYNCOPE ---
HPI - Syncope General Chief Complaint: Syncope Stated Complaint: syncope, fall Time Seen by Provider: 05/24/23 08:38 History of Present Illness HPI narrative: Pt has history of recurrent falls and syncope per son. Pt fell twice over night striking head. Pt also has potential osteomyelitis of left foot per son diagnosed at [facility]. Pt was due for MRI of foot today. Pt uses walker and now wheelchair and slid out of wheelchair this morning time two. Pt also has history of low BP but around 100 not 70's. Pt denies PRINCE or neck pain. Pt is on blood thinners. Related Data Home Medications Medication Instructions Recorded Confirmed atorvastatin 40 mg tablet 40 mg PO DAILY 08/05/21 05/24/23 clopidogrel 75 mg tablet 75 mg PO HS 08/05/21 05/24/23 tamsulosin 0.4 mg capsule 0.4 mg PO BID 04/13/22 05/24/23 finasteride 5 mg tablet 5 mg PO HS 12/29/22 05/24/23 lactobacillus combination no.9 4 4,000 mmu cells PO DAILY 12/29/22 05/24/23 billion cell capsule (Adult 50 Plus Probiotic) solifenacin 5 mg tablet 5 mg PO DAILY 12/29/22 05/24/23 bumetanide 2 mg tablet 2 mg PO BID 05/24/23 05/24/23 Allergies Allergy/AdvReac Type Severity Reaction Status Date / Time No Known Allergies Allergy Verified 05/24/23 09:34 Review of Systems Review of Systems: All systems reviewed & are unremarkable except as noted in HPI and below PMFSH Past Medical History Medical History (Updated 05/24/23 @ 13:23 by Hieu Ramirez APRN) A-fib Acute hyperglycemia Acute hypokalemia Acute hypokalemia Acute hyponatremia Acute on chronic kidney failure Acute renal insufficiency Acute UTI Anemia Arthritis Bleeding from mouth BPH (benign prostatic hyperplasia) Bradycardia with 31-40 beats per minute Cardiomyopathy Cellulitis of left leg Chest pain Chronic congestive heart failure Echocardiogram 12/20/2020: 4 chamber dilatation, moderate left ventricular enlargement with mild lead depressed systolic function with EF of 40-45% CKD (chronic kidney disease) stage 3, GFR 30-59 ml/min Coronary artery disease Degenerative disc disease Diabetes Diastolic heart failure Epistaxis Essential hypertension Fever Foot callus Gout Hemoptysis Hepatic cyst Hypertension Hypotension Left leg cellulitis Left rib fracture Osteoarthritis Osteoarthritis 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 sides of body Pacemaker Peripheral neuropathy Renal cyst Sepsis Syncope Syncope and collapse Tachy-demetrio syndrome Wound of left foot Surgical History Surgical History History of arthroplasty of left shoulder History of heart artery stent (~07/2021) X2 History of total hip replacement Right side S/p bilateral shoulder joint replacement Status post cardiac pacemaker procedure (~09/2021) Due to AFib with systolic pauses Status post cataract extraction of both eyes with insertion of intraocular lens Family History Family History Father Family history of malignant neoplasm of stomach at the age of 59 Mother Cancer Social History Social History Social History: The patient lives with his of 59 years. They live in a duplex. He ambulates with a cane. He has 2 children. He is retired from [employer]. The patient smoked a pack a cigarettes a day for few years and quit 52 years ago. No alcohol or illicit drugs. Code status: Full code Surrogate decision maker: Primary care physician: Dr. Kathi Branham Smoking packs per day: 1 Smoking cigarettes per day: 20.0 Years smoked: 5 Smoking pack-years: 5.00 Smoking status: Former smoker Tobacco type: cigarettes Smoking end date: 12/02/69 Alcohol intake: never Substance use: never Substance use type: does not use Lack of Transportation: No Lack of Food: Never True Current Housing: I Have [facility]
[2023-05-24] MEDS: SODIUM CHLORIDE 0.9% IV 1,000 ML 999 ML IV CONT (09:33)
[2023-05-24 09:47] LABS: Basophils Percent Auto 0.1 % (0.2-1.2); Eosinophils Absolute Auto 0.1 K/mm3 (0-0.3); Eosinophils Percent Auto 0.6 % (0-4.4); Hematocrit 37.3 % (42.0-52.0); Hemoglobin 12.2 g/dL (14.0-18.0); Immature Granulocyte Absolute 0.09 K/mm3 (0.00-0.031); Immature Granulocyte Percent A 0.8 % (0-0.5); Lymphocytes Absolute Auto 0.88 K/mm3 (0.9-3.2); Lymphocytes Percent Auto 7.9 % (18.3-44.2); Mean Corpuscular HGB Conc 32.7 g/dl (32-36); Mean Corpuscular Hemoglobin 30.7 pg (26-34); Mean Platelet Volume 10.2 fl (7.4-10.4); Monocytes Absolute Auto 0.8 K/mm3 (0.1-0.6); Monocytes Percent Auto 7.4 % (2.6-8.5); Neutrophils Absolute Auto 9.2 K/mm3 (1.3-6.7); Neutrophils Percent Auto 83.2 % (45.5-73.1); Platelet Count Result 248 k/mm3 (150-375); Red Blood Count 3.97 M/mm3 (4.6-6.20); Red Cell Distribution Width 12.9 % (11.5-14.5); White Blood Count 11.1 K/mm3 (4.5-10.0)
[2023-05-24 09:56] LABS: Alanine Aminotransferase 27 U/L (6-50); Albumin Level 3.8 g/dL (3.5-5.1); Alkaline Phosphatase 119 U/L (38-126); Anion Gap 9 mmol/L (8-16); Aspartate Amino Transferase 39 U/L (17-59); Bilirubin,Total 1.4 mg/dL (0.2-1.3); Blood Urea Nitrogen 114 mg/dL (9-20); Calcium 8.7 mg/dL (8.4-10.2); Carbon Dioxide 28 mmol/L (22-30); Chloride 93 mmol/L (98-107); Estimated CRCL calculation 32 ml/min; Estimated Glomerular Filt Rate 32; Glucose 196 mg/dL (65-110); Magnesium 2.2 mg/dL (1.6-2.3); Potassium 3.3 mmol/L (3.4-5.0); Sodium 130 mmol/L (137-145)
[2023-05-24 09:57] LABS: INR 1.6; Prothrombin Time 19.5 Seconds (11.1-14.7)
[2023-05-24 09:58] LABS: Partial Thromboplastin Time 36.3 SECONDS (22.3-36.8)
[2023-05-24 10:07] LABS: NT Pro B Type Natriuretic Pept 6040 pg/mL (19.9-100); Troponin I 0.013 ng/mL (0.000-0.034)
[2023-05-24 10:09] LABS: Lactic Acid Reflex 1.6 mmol/L (0.7-2.0)
[2023-05-24 10:14] LABS: Erythrocyte Sedimentation Rate 104 mm/hr (0-20)
[2023-05-24 11:19] LABS: Appearance Urine Clear (Clear); Bilirubin Urine Negative (Negative); Blood Urine Negative (Negative); Color Urine Yellow (Yellow); Glucose Urine UA Negative (Negative); Ketones Urine Negative (Negative); Leukocyte Esterase Ur Negative LEU/UL (Negative); Nitrate Urine Negative (Negative); Protein Urine Negative (Negative); pH Urine 6.5 (5.0-9.0)
[2023-05-24 11:20] LABS: Add Urine Microscopic? NO
--- NOTE | 2023-05-24 12:11 | PM.IMHP ---
H&P: HPI History of Present Illness Date/Time: 05/24/23 12:11 Chief Complaint: frequent falls Narrative: This is a an 82-year-old male patient who is admitted to the hospital for syncopal episodes with multiple falls at home. Overnight patient had several falls including 1 that caused a large skin tear on his right upper arm. Patient reports his chronic back pain is worsened after these falls. He denies any bowel or bladder retention or incontinence and denies saddle paresthesias. He states that he is beginning to be sore from repeatedly falling. Patient has a history of low blood pressure and takes Florinef and midodrine for this.? It is believed that his low blood pressures contributing to his syncope and falls.? Patient will be admitted for PT OT evaluation and possible rehabilitation placement. Patient reports occasional nausea no vomiting no chest pain no difficulty breathing. Review of Systems Review of Systems: All systems reviewed & are unremarkable except as noted in HPI and below PMFSH Past Medical History Medical History A-fib Acute hyperglycemia Acute hypokalemia Acute hypokalemia Acute hyponatremia Acute on chronic kidney failure Acute renal insufficiency Acute UTI Anemia Arthritis Bleeding from mouth BPH (benign prostatic hyperplasia) Bradycardia with 31-40 beats per minute Cardiomyopathy Cellulitis of left leg Chest pain Chronic congestive heart failure Echocardiogram 12/20/2020: 4 chamber dilatation, moderate left ventricular enlargement with mild lead depressed systolic function with EF of 40-45% CKD (chronic kidney disease) stage 3, GFR 30-59 ml/min Coronary artery disease Degenerative disc disease Diabetes Diastolic heart failure Epistaxis Essential hypertension Fever Foot callus Gout Hemoptysis Hepatic cyst Hypertension Hypotension Left leg cellulitis Left rib fracture Osteoarthritis Osteoarthritis 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 sides of body Pacemaker Peripheral neuropathy Renal cyst Sepsis Syncope Syncope and collapse Tachy-demetrio syndrome Wound of left foot Surgical History Surgical History History of arthroplasty of left shoulder History of heart artery stent (~07/2021) X2 History of total hip replacement Right side S/p bilateral shoulder joint replacement Status post cardiac pacemaker procedure (~09/2021) Due to AFib with systolic pauses Status post cataract extraction of both eyes with insertion of intraocular lens Family History Family History Father Family history of malignant neoplasm of stomach at the age of 59 Mother Cancer Social History Social History Social History: The patient lives with his of 59 years. They live in a duplex. He ambulates with a cane. He has 2 children. He is retired from [employer]. The patient smoked a pack a cigarettes a day for few years and quit 52 years ago. No alcohol or illicit drugs. Code status: Full code Surrogate decision maker: Primary care physician: Dr. Kathi Branham Smoking packs per day: 1 Smoking cigarettes per day: 20.0 Years smoked: 5 Smoking pack-years: 5.00 Smoking status: Former smoker Tobacco type: cigarettes Smoking end date: 12/02/69 Alcohol intake: never Substance use: never Substance use type: does not use Lack of Transportation: No Lack of Food: Never True Current Housing: I Have Housing Concerned About Future Housing: No Difficulty Paying Gas/Electric Bills: No Difficulty Paying for Meds: No Currently Unemployed: No Education: Associate Degree Difficulty w/ Childcare or Family Care: No Living arrangements: with family Occupation/Education: retired Gender identity (if verbalized by the patient
--- NOTE | 2023-05-24 13:08 | PCPTNOTE ---
Waiting on complete work up/pt has bedrest orders at this time. Will Follow.
[2023-05-24 14:46] LABS: Hemoglobin A1C 9.1 % (<5.7)
[2023-05-24] MEDS: HYDROcodone/acetaminophen (*CRX) 5-325 MG TABLET 1 TAB PO (14:49)
[2023-05-24] MEDS: AMOXICILLIN/CLAVULANATE K 500-125 MG TAB 1 TABLET PO (14:50)
[2023-05-24] MEDS: SODIUM CHLORIDE 0.9% IV 1,000 ML 125 ML IV CONT (14:52)
[2023-05-24 16:55] LABS: Glucose Point of Care 209 mg/dl (65-105)
[2023-05-24] MEDS: SILVERGEL (ELTA) 45 ML 1 APPLIC TOPICAL (18:02)
[2023-05-24] MEDS: WARFARIN (*PBKC) 3 MG TABLET PO (18:12)
[2023-05-24] MEDS: BUMETANIDE 1 MG TABLET 2 MG PO (18:12)
[2023-05-24] MEDS: TAMSULOSIN HCL 0.4 MG CAPSULE PO (18:13)
[2023-05-24] MEDS: INSULIN ASPART (*BKC) 100 UNITS/ML SUB-Q (18:13)
[2023-05-24] MEDS: FINASTERIDE 5 MG TABLET PO (20:26)
[2023-05-24] MEDS: CLOPIDOGREL BISULFATE 75 MG TABLET PO (20:26)
[2023-05-24] MEDS: PRAMIPEXOLE 1 MG TABLET 2 MG PO (20:27)
[2023-05-24 21:43] LABS: Glucose Point of Care 127 mg/dl (65-105)
[2023-05-25] VITALS (12 sets, daily range): BP systolic 98–100; BP diastolic 50–85; PULSE 58–112; RESP 14–18; TEMP 36.1–36.3; O2SAT 97–99
[2023-05-25] MEDS: SODIUM CHLORIDE 0.9% IV 1,000 ML 125 ML IV CONT ×2 (00:28→10:26)
[2023-05-25] MEDS: HYDROcodone/acetaminophen (*CRX) 5-325 MG TABLET 1 TAB PO ×2 (00:30→10:25)
[2023-05-25] MEDS: LINACLOTIDE 145 MCG CAPSULE 290 MCG PO (05:48)
[2023-05-25 06:31] LABS: Basophils Percent Auto 0.1 % (0.2-1.2); Eosinophils Absolute Auto 0.2 K/mm3 (0-0.3); Eosinophils Percent Auto 2.6 % (0-4.4); Hematocrit 36.3 % (42.0-52.0); Hemoglobin 11.8 g/dL (14.0-18.0); Immature Granulocyte Absolute 0.04 K/mm3 (0.00-0.031); Immature Granulocyte Percent A 0.5 % (0-0.5); Lymphocytes Percent Auto 13.6 % (18.3-44.2); Mean Corpuscular HGB Conc 32.5 g/dl (32-36); Mean Corpuscular Hemoglobin 31.2 pg (26-34); Mean Platelet Volume 9.4 fl (7.4-10.4); Monocytes Absolute Auto 0.5 K/mm3 (0.1-0.6); Monocytes Percent Auto 7.2 % (2.6-8.5); Neutrophils Absolute Auto 5.6 K/mm3 (1.3-6.7); Platelet Count Result 219 k/mm3 (150-375); Red Blood Count 3.78 M/mm3 (4.6-6.20); Red Cell Distribution Width 13.1 % (11.5-14.5); White Blood Count 7.3 K/mm3 (4.5-10.0)
[2023-05-25 06:41] LABS: INR 1.5; Prothrombin Time 18.7 Seconds (11.1-14.7)
[2023-05-25 06:45] LABS: Alanine Aminotransferase 25 U/L (6-50); Albumin Level 3.5 g/dL (3.5-5.1); Alkaline Phosphatase 117 U/L (38-126); Anion Gap 6 mmol/L (8-16); Aspartate Amino Transferase 34 U/L (17-59); Blood Urea Nitrogen 87 mg/dL (9-20); Calcium 8.8 mg/dL (8.4-10.2); Carbon Dioxide 31 mmol/L (22-30); Chloride 100 mmol/L (98-107); Estimated CRCL calculation 41 ml/min; Estimated Glomerular Filt Rate 45; Glucose 155 mg/dL (65-110); Potassium 3.3 mmol/L (3.4-5.0); Sodium 137 mmol/L (137-145)
[2023-05-25 08:24] LABS: Glucose Point of Care 191 mg/dl (65-105)
[2023-05-25] MEDS: TAMSULOSIN HCL 0.4 MG CAPSULE PO ×2 (09:08→16:59)
[2023-05-25] MEDS: ATORVASTATIN 40 MG TABLET PO (09:08)
[2023-05-25] MEDS: ACIDOPHILUS/BULGARICUS CHEWABLE TABLET 4 TABLET PO (09:08)
[2023-05-25] MEDS: SOLIFENACIN 5 MG TABLET PO (09:09)
[2023-05-25] MEDS: FLUDROCORTISONE ACETATE 0.1 MG TABLET PO (09:09)
[2023-05-25] MEDS: glipiZIDE XL 2.5 MG TAB.ER.24 PO (09:09)
[2023-05-25] MEDS: POTASSIUM CHLORIDE 20 MEQ PACKET (FOR LIQUID) PO (09:10)
--- NOTE | 2023-05-25 10:17 | PCPTNOTE ---
Attempted PT evaluation. Pt currently having a lot of pain. Per RN, pt's HR increased to 150's with functional mobility this morning. Spoke with hospitalist who OK to hold therapy until they are assessed this date. Will follow.
--- NOTE | 2023-05-25 10:25 | PCOTNOTE ---
Attempted OT evaluation. Per RN, pt's HR increased to 150's with functional mobility this morning. Spoke with hospitalist, Dr. Jennings, who OK to hold therapy until they are assessed this date. Will follow.
[2023-05-25 11:34] LABS: Glucose Point of Care 362 mg/dl (65-105)
[2023-05-25] MEDS: INSULIN ASPART (*BKC) 100 UNITS/ML SUB-Q ×2 (12:09→21:00)
--- NOTE | 2023-05-25 13:40 | PM.IMPN ---
Progress Note: A&P Assessment and Plan (1) Syncope: Code(s): R55 - Syncope and collapse Status: Acute Assessment and Plan: Patient fell twice prior to admission with head trauma. He is on anticoagulation. Related to syncopal episode. Presumably due to hypotension. Blood pressure on admission was 87/34. He is on 3 diuretics so considered dehydration as well given his acute kidney injury. Brain CT showed no acute abnormalities. Will hold his diuretics today. Continue IV fluids. Will start therapy. Resume midodrine. (2) Hypotension: Qualifiers: Hypotension type: other hypotension type Qualified Code(s): I95.89 - Other hypotension Code(s): I95.9 - Hypotension, unspecified Status: Acute Assessment and Plan: Chronic HoTN. Unclear on etiology. Currently on midodrine and Florinef. Wean of IV fluids. Hold diuretics (3) Acute kidney injury superimposed on CKD: Code(s): N17.9 - Acute kidney failure, unspecified; N18.9 - Chronic kidney disease, unspecified Status: Acute Assessment and Plan: BUN 114, Cr 2.0 on admission. Baseline creatinine runs 1.3-1.6. Suspect related to dehydration from continued diuretic use and probably poor p.o. intake. With IV fluids, creatinine has trended downward to 1.5. BUN is now 87. Continue IV fluids today. Hold diuretics. Continue to follow. (4) Acute dehydration: Code(s): E86.0 - Dehydration Status: Acute Assessment and Plan: As above (5) Frequent falls: Code(s): R29.6 - Repeated falls Status: Acute Assessment and Plan: Patient with multiple bruising noted due to frequent falls. He has hypotension and is on blood thinners. He is high risk for a negative outcome. Will discuss with patient's family about risks versus benefits of anticoagulation. Continue Coumadin for now. Daily INRs. PT/OT ordered. Wound care for large right arm skin tear. (6) Pacemaker: Code(s): Z95.0 - Presence of cardiac pacemaker Status: Acute Assessment and Plan: Patient with PM. Stable. Remians in tele to monitor heart rate. Follow. (7) Obstructive sleep apnea on CPAP: Code(s): G47.33 - Obstructive sleep apnea (adult) (pediatric); Z99.89 - Dependence on other enabling machines and devices Status: Acute Assessment and Plan: Patient has hx of AGAPITO and reportedly does not use PAP at home. CPAP auto titrate ordered. (8) Chronic back pain: Qualifiers: Back pain laterality: bilateral Back pain location: thoracic back pain Qualified Code(s): M54.6 - Pain in thoracic spine; G89.29 - Other chronic pain Code(s): M54.9 - Dorsalgia, unspecified; G89.29 - Other chronic pain Status: Acute Assessment and Plan: Pain medication ordered for acute on chronic low back pain. (9) Skin tear of right upper extremity: Code(s): S41.111A - Laceration without foreign body of right upper arm, initial encounter Status: Inactive Assessment and Plan: Wound care ordered. As above (10) Wound of left foot: Code(s): S91.302A - Unspecified open wound, left foot, initial encounter Status: Acute Assessment and Plan: Patient found to have shallow ulcer left plantar surface. Probably related to callus unroofed. Xray was negative for osteomyelitis. Unable to get MRI due to PM. Doppler negative for DVT. Wound consult ordered. Reports completing Augmentin Rx but pharmacy told RN this was never picked up. Hold on abx since it does not appear to be infected. (11) Type 2 diabetes mellitus with hyperglycemia: Qualifiers: Diabetes mellitus longterm insulin use: without longterm use Qualified Code(s): E11.65 - Type 2 diabetes mellitus with hyperglycemia Code(s): E11.65 - Type 2 diabetes mellitus with hyperglycemia Status: Acute Assessment and Plan: A1c 9.1. The patient's blood
--- NOTE | 2023-05-25 15:39 | PCPTNOTE ---
Spoke with Dr. Jennings who OK therapy working with pt at this time.
[2023-05-25 16:44] LABS: Glucose Point of Care 126 mg/dl (65-105)
[2023-05-25] MEDS: WARFARIN (*PBKC) 2 MG TABLET PO (17:00)
[2023-05-25] MEDS: MIDODRINE HCL 10 MG TABLET PO (17:00)
[2023-05-25] MEDS: WARFARIN (*PBKC) 3 MG TABLET PO (17:01)
[2023-05-25] MEDS: PRAMIPEXOLE 1 MG TABLET 2 MG PO (18:06)
[2023-05-25] MEDS: SODIUM CHLORIDE 0.9% IV 1,000 ML 70 ML IV CONT (18:06)
[2023-05-25 20:08] LABS: Glucose Point of Care 235 mg/dl (65-105)
[2023-05-25] MEDS: FINASTERIDE 5 MG TABLET PO (21:07)
[2023-05-25] MEDS: CLOPIDOGREL BISULFATE 75 MG TABLET PO (21:07)
[2023-05-25] MEDS: TOLNAFTATE 1% POWDER 45 GM BTL 1 APPLIC TOPICAL (21:08)
[2023-05-25] MEDS: ACETAMINOPHEN 325 MG TABLET 650 MG PO (21:19)
[2023-05-26] VITALS (9 sets, daily range): BP systolic 99–104; BP diastolic 58–75; PULSE 72–106; RESP 14–20; TEMP 35.8–36.7; O2SAT 96–98
--- NOTE | 2023-05-26 01:47 | PC.NURSE ---
pt was complaining of pain. pt requested norco. RN took BP and it was 94/60. RN called the phys and asked about giving the pt the norco and he said no bc the BP was too low and to give tylenol. RN transferred the info to the pt and he refused to take the tylenol.
[2023-05-26] MEDS: SODIUM CHLORIDE 0.9% IV 1,000 ML 70 ML IV CONT (02:45)
[2023-05-26] MEDS: ACETAMINOPHEN 325 MG TABLET 650 MG PO (02:53)
--- NOTE | 2023-05-26 05:00 | PCRCNOTE ---
patient refused use of hospital cpap/bipap unit; pt stated that he has not worn home unit in 15 years
[2023-05-26] MEDS: LINACLOTIDE 145 MCG CAPSULE 290 MCG PO (05:46)
[2023-05-26 06:38] LABS: Basophils Percent Auto 0.2 % (0.2-1.2); Eosinophils Absolute Auto 0.2 K/mm3 (0-0.3); Eosinophils Percent Auto 2.4 % (0-4.4); Hematocrit 36.1 % (42.0-52.0); Hemoglobin 11.5 g/dL (14.0-18.0); Immature Granulocyte Absolute 0.05 K/mm3 (0.00-0.031); Immature Granulocyte Percent A 0.6 % (0-0.5); Lymphocytes Percent Auto 12.2 % (18.3-44.2); Mean Corpuscular HGB Conc 31.9 g/dl (32-36); Mean Corpuscular Hemoglobin 30.8 pg (26-34); Mean Corpuscular Volume 96.8 fl (80-100); Mean Platelet Volume 9.6 fl (7.4-10.4); Monocytes Absolute Auto 0.6 K/mm3 (0.1-0.6); Monocytes Percent Auto 7.7 % (2.6-8.5); Neutrophils Absolute Auto 6.3 K/mm3 (1.3-6.7); Neutrophils Percent Auto 76.9 % (45.5-73.1); Platelet Count Result 226 k/mm3 (150-375); Red Blood Count 3.73 M/mm3 (4.6-6.20); Red Cell Distribution Width 13.2 % (11.5-14.5); White Blood Count 8.2 K/mm3 (4.5-10.0)
[2023-05-26 06:48] LABS: INR 1.9; Prothrombin Time 23.3 Seconds (11.1-14.7)
[2023-05-26 07:05] LABS: Alanine Aminotransferase 23 U/L (6-50); Albumin Level 3.2 g/dL (3.5-5.1); Alkaline Phosphatase 106 U/L (38-126); Anion Gap 6 mmol/L (8-16); Aspartate Amino Transferase 27 U/L (17-59); Bilirubin,Total 0.9 mg/dL (0.2-1.3); Blood Urea Nitrogen 61 mg/dL (9-20); Calcium 8.3 mg/dL (8.4-10.2); Carbon Dioxide 28 mmol/L (22-30); Chloride 104 mmol/L (98-107); Estimated CRCL calculation 51 ml/min; Estimated Glomerular Filt Rate 58; Glucose 141 mg/dL (65-110); Sodium 138 mmol/L (137-145)
[2023-05-26 07:47] LABS: Glucose Point of Care 193 mg/dl (65-105)
[2023-05-26] MEDS: SOLIFENACIN 5 MG TABLET PO (08:54)
[2023-05-26] MEDS: FLUDROCORTISONE ACETATE 0.1 MG TABLET PO (08:54)
[2023-05-26] MEDS: MIDODRINE HCL 10 MG TABLET PO ×3 (08:54→16:37)
[2023-05-26] MEDS: ATORVASTATIN 40 MG TABLET PO (08:54)
[2023-05-26] MEDS: glipiZIDE XL 2.5 MG TAB.ER.24 PO (08:54)
[2023-05-26] MEDS: TAMSULOSIN HCL 0.4 MG CAPSULE PO ×2 (08:55→16:37)
[2023-05-26] MEDS: ACIDOPHILUS/BULGARICUS CHEWABLE TABLET 4 TABLET PO (08:55)
[2023-05-26] MEDS: POTASSIUM CHLORIDE 20 MEQ ER TABLET 40 MEQ PO (08:55)
[2023-05-26] MEDS: TRIAMCINOLONE ACET 0.1% OINT 15 GM TUBE 1 APPLIC TOPICAL ×2 (08:56→16:37)
[2023-05-26] MEDS: TOLNAFTATE 1% POWDER 45 GM BTL 1 APPLIC TOPICAL ×2 (08:57→20:28)
[2023-05-26] MEDS: POTASSIUM CHLORIDE 20 MEQ ER TABLET PO (09:00)
[2023-05-26 11:08] LABS: Potassium 3.5 mmol/L (3.4-5.0)
[2023-05-26 11:45] LABS: Glucose Point of Care 210 mg/dl (65-105)
[2023-05-26] MEDS: INSULIN ASPART (*BKC) 100 UNITS/ML SUB-Q (12:47)
--- NOTE | 2023-05-26 14:30 | PC.NURSE ---
Pt is A&O4 male who has participated and contributed in plan of care. Pt has reported pain, but continues to have decreased blood pressure. Pt had manual BP take and was 104/58. Pt has been given warm blankets to help with back pain due to low BP. Pt has been up to chair and ambulated to the bathroom today. Pt telemetry registering tachy at times. Manual pulse taken and numbers are not the same. Pt denies feeling rapid heart rate when telemetry alarms. Will continue to monitor pt.
[2023-05-26 16:30] LABS: Glucose Point of Care 145 mg/dl (65-105)
[2023-05-26] MEDS: WARFARIN (*PBKC) 3 MG TABLET PO (16:36)
[2023-05-26] MEDS: PRAMIPEXOLE 1 MG TABLET 2 MG PO (16:36)
--- NOTE | 2023-05-26 17:30 | PM.IMPN ---
Progress Note: A&P Assessment and Plan (1) Syncope: Code(s): R55 - Syncope and collapse Status: Acute Assessment and Plan: Patient fell twice prior to admission with head trauma. He is on anticoagulation. Related to syncopal episode. Presumably due to hypotension. Blood pressure on admission was 87/34. He is on 3 diuretics so considered dehydration as well given his acute kidney injury. Brain CT showed no acute abnormalities. Diuretics held and started on IV fluids. PT/OT ordered. Midodrine resumed. He feels better. Able to be up and around without presyncope. BP still soft. Will stop IV fluids and monitor. Check Echo (2) Hypotension: Qualifiers: Hypotension type: other hypotension type Qualified Code(s): I95.89 - Other hypotension Code(s): I95.9 - Hypotension, unspecified Status: Acute Assessment and Plan: Chronic HoTN. Unclear on etiology. Currently on midodrine and Florinef. Hold diuretics Stop IV fluids. (3) Acute kidney injury superimposed on CKD: Code(s): N17.9 - Acute kidney failure, unspecified; N18.9 - Chronic kidney disease, unspecified Status: Acute Assessment and Plan: BUN 114, Cr 2.0 on admission. Baseline creatinine runs 1.3-1.6. Suspect related to dehydration from continued diuretic use and probably poor p.o. intake. Hgb okay so do not suspect GI bleed. With IV fluids, creatinine has trended downward to 1.2 and BUN 61. Stop IV fluids today. Continue to hold diuretics. Continue to follow. (4) Acute dehydration: Code(s): E86.0 - Dehydration Status: Acute Assessment and Plan: As above (5) Frequent falls: Code(s): R29.6 - Repeated falls Status: Acute Assessment and Plan: Patient with multiple bruising noted due to frequent falls. He has hypotension and is on blood thinners. He is high risk for a negative outcome. Will discuss with patient's family about risks versus benefits of anticoagulation. Continue Coumadin for now. Daily INRs. PT/OT ordered. Wound care for large right arm skin tear. (6) Pacemaker: Code(s): Z95.0 - Presence of cardiac pacemaker Status: Acute Assessment and Plan: Patient with PM. Stable. Remians in tele to monitor heart rate. Follow. (7) Obstructive sleep apnea on CPAP: Code(s): G47.33 - Obstructive sleep apnea (adult) (pediatric); Z99.89 - Dependence on other enabling machines and devices Status: Acute Assessment and Plan: Patient has hx of AGAPITO and reportedly does not use PAP at home. Patient refusing CPAP. (8) Chronic back pain: Qualifiers: Back pain laterality: bilateral Back pain location: thoracic back pain Qualified Code(s): M54.6 - Pain in thoracic spine; G89.29 - Other chronic pain Code(s): M54.9 - Dorsalgia, unspecified; G89.29 - Other chronic pain Status: Acute Assessment and Plan: Pain medication ordered for acute on chronic low back pain. (9) Skin tear of right upper extremity: Code(s): S41.111A - Laceration without foreign body of right upper arm, initial encounter Status: Inactive Assessment and Plan: Wound care ordered. As above (10) Wound of left foot: Code(s): S91.302A - Unspecified open wound, left foot, initial encounter Status: Acute Assessment and Plan: Patient found to have shallow ulcer left plantar surface. Probably related to callus unroofed. Xray was negative for osteomyelitis. Unable to get MRI due to PM. Doppler negative for DVT. Wound consult ordered. Reports completing Augmentin Rx but pharmacy told RN this was never picked up. Hold on abx since it does not appear to be infected. 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
[2023-05-26] MEDS: WARFARIN (*PBKC) 2 MG TABLET PO (19:46)
[2023-05-26] MEDS: CLOPIDOGREL BISULFATE 75 MG TABLET PO (20:29)
[2023-05-26] MEDS: FINASTERIDE 5 MG TABLET PO (20:29)
[2023-05-26 22:36] LABS: Glucose Point of Care 184 mg/dl (65-105)
[2023-05-26] MEDS: traMADol HCL (*CRX) 50 MG TABLET PO (23:53)
[2023-05-27] VITALS (10 sets, daily range): BP systolic 94–102; BP diastolic 56–71; PULSE 68–113; RESP 16–20; TEMP 35.5–36.7; O2SAT 98–100
[2023-05-27 06:04] LABS: Basophils Percent Auto 0.3 % (0.2-1.2); Eosinophils Absolute Auto 0.3 K/mm3 (0-0.3); Eosinophils Percent Auto 3.8 % (0-4.4); Hematocrit 35.1 % (42.0-52.0); Hemoglobin 11.1 g/dL (14.0-18.0); Immature Granulocyte Absolute 0.03 K/mm3 (0.00-0.031); Immature Granulocyte Percent A 0.4 % (0-0.5); Mean Corpuscular HGB Conc 31.6 g/dl (32-36); Mean Corpuscular Hemoglobin 30.8 pg (26-34); Mean Corpuscular Volume 97.5 fl (80-100); Mean Platelet Volume 9.6 fl (7.4-10.4); Monocytes Absolute Auto 0.6 K/mm3 (0.1-0.6); Monocytes Percent Auto 7.1 % (2.6-8.5); Neutrophils Absolute Auto 5.9 K/mm3 (1.3-6.7); Neutrophils Percent Auto 74.4 % (45.5-73.1); Platelet Count Result 221 k/mm3 (150-375); Red Cell Distribution Width 13.2 % (11.5-14.5); White Blood Count 7.9 K/mm3 (4.5-10.0)
[2023-05-27 06:15] LABS: INR 2.5; Prothrombin Time 29.1 Seconds (11.1-14.7)
[2023-05-27 06:24] LABS: Anion Gap 4 mmol/L (8-16); Blood Urea Nitrogen 46 mg/dL (9-20); Calcium 8.3 mg/dL (8.4-10.2); Carbon Dioxide 26 mmol/L (22-30); Chloride 106 mmol/L (98-107); Estimated CRCL calculation 55 ml/min; Estimated Glomerular Filt Rate > 60; Glucose 133 mg/dL (65-110); Magnesium 1.8 mg/dL (1.6-2.3); Potassium 3.7 mmol/L (3.4-5.0); Sodium 136 mmol/L (137-145)
[2023-05-27 06:25] LABS: Alanine Aminotransferase 22 U/L (6-50); Albumin Level 3.1 g/dL (3.5-5.1); Alkaline Phosphatase 97 U/L (38-126); Aspartate Amino Transferase 25 U/L (17-59); Bilirubin,Total 0.7 mg/dL (0.2-1.3)
[2023-05-27] MEDS: LINACLOTIDE 145 MCG CAPSULE 290 MCG PO (06:48)
[2023-05-27 08:03] LABS: Glucose Point of Care 142 mg/dl (65-105)
[2023-05-27] MEDS: TAMSULOSIN HCL 0.4 MG CAPSULE PO ×2 (08:55→18:44)
[2023-05-27] MEDS: SOLIFENACIN 5 MG TABLET PO (08:55)
[2023-05-27] MEDS: EMPAGLIFLOZIN 10 MG TABLET PO (08:55)
[2023-05-27] MEDS: glipiZIDE XL 2.5 MG TAB.ER.24 PO (08:55)
[2023-05-27] MEDS: ACIDOPHILUS/BULGARICUS CHEWABLE TABLET 4 TABLET PO (08:55)
[2023-05-27] MEDS: MIDODRINE HCL 10 MG TABLET PO ×3 (08:55→18:43)
[2023-05-27] MEDS: ATORVASTATIN 40 MG TABLET PO (08:55)
[2023-05-27] MEDS: FLUDROCORTISONE ACETATE 0.1 MG TABLET PO (08:55)
[2023-05-27] MEDS: TRIAMCINOLONE ACET 0.1% OINT 15 GM TUBE 1 APPLIC TOPICAL ×2 (08:56→18:43)
[2023-05-27] MEDS: traMADol HCL (*CRX) 50 MG TABLET PO ×2 (09:00→21:18)
[2023-05-27] MEDS: TOLNAFTATE 1% POWDER 45 GM BTL 1 APPLIC TOPICAL ×2 (09:01→21:18)
[2023-05-27] MEDS: METOPROLOL TARTRATE 6.25 MG TABLET PO ×2 (10:26→21:18)
[2023-05-27 11:52] LABS: Glucose Point of Care 182 mg/dl (65-105)
[2023-05-27] MEDS: SILVERGEL (ELTA) 45 ML 1 APPLIC TOPICAL (12:54)
--- NOTE | 2023-05-27 15:39 | PM.IMPN ---
Progress Note: A&P Assessment and Plan (1) Syncope: Code(s): R55 - Syncope and collapse Status: Acute Assessment and Plan: Patient fell twice prior to admission with head trauma. He is on anticoagulation. Related to syncopal episode. Presumably due to hypotension. Blood pressure on admission was 87/34. He is on 3 diuretics so probably dehydrated as well given his acute kidney injury. Brain CT showed no acute abnormalities. Diuretics held and started on IV fluids. PT/OT ordered. Midodrine resumed. He feels better. Able to be up and around without presyncope but remains off diuretics. BP still soft. Yung hose ordered. (2) Hypotension: Qualifiers: Hypotension type: other hypotension type Qualified Code(s): I95.89 - Other hypotension Code(s): I95.9 - Hypotension, unspecified Status: Acute Assessment and Plan: Chronic HoTN. Unclear on etiology. Currently on midodrine and Florinef. Diuretics remain on hold. (3) Acute kidney injury superimposed on CKD: Code(s): N17.9 - Acute kidney failure, unspecified; N18.9 - Chronic kidney disease, unspecified Status: Acute Assessment and Plan: BUN 114, Cr 2.0 on admission. Baseline creatinine runs 1.3-1.6. Suspect related to dehydration from continued diuretic use and probably poor p.o. intake. Hgb okay so do not suspect GI bleed. With IV fluids, creatinine has trended downward to 1.1 and BUN 46. Off IV fluids now. Continue to follow. (4) Acute dehydration: Code(s): E86.0 - Dehydration Status: Acute Assessment and Plan: As above (5) Frequent falls: Code(s): R29.6 - Repeated falls Status: Acute Assessment and Plan: Patient with multiple bruising noted due to frequent falls. He has hypotension and is on blood thinners. He is high risk for a negative outcome. Continue Coumadin for now. Daily INRs. PT/OT ordered. Wound care for large right arm skin tear. (6) A-fib: Qualifiers: Atrial fibrillation type: unspecified Qualified Code(s): I48.91 - Unspecified atrial fibrillation Code(s): I48.91 - Unspecified atrial fibrillation Status: Chronic Assessment and Plan: Heart rate well controlled at rest but episodes of tachycardia with exertion. Probably related to deconditioning. He is not on rate lowering agents at home. On Coumadin for anticoagulation. INR therapeutic. Continue Coumadin. Will discuss with patient and family about risks versus benefits of continuing anticoagulation given his frequent falls. Metoprolol added at low dose. (7) CHF (congestive heart failure): Code(s): I50.9 - Heart failure, unspecified Status: Acute Assessment and Plan: Patient with know CHF. Probably chronic systolic and diastolic CHF. [facility] report in February references an EF 40-45%. He has known diastolic dysfunction. CXR clear on admission. BNP 6000. No evidence of acute failure. Echo ordered. Metoprolol added. If he tolerates metoprolol, change to Toprol XL at discharge. Empagliflozin added. Follow up on Echo report. Try to add back low dose Bumex. 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 The patient's blood glucose was reviewed on 05/27 Glucose better controlled. Continue AccuCheks covering with sliding scale. Hypoglycemia protocol available as needed. Continue diabetic diet. Empagliflozin added. Add metformin and consider Januvia (9) Pacemaker: Code(s): Z95.0 - Presence of cardiac pacemaker Status: Acute Assessment and Plan: Patient with PM. Stable. Remians in tele to monitor heart rate. Follow. (10) Wound of left
[2023-05-27 18:01] LABS: Glucose Point of Care 121 mg/dl (65-105)
[2023-05-27] MEDS: PRAMIPEXOLE 1 MG TABLET 2 MG PO (18:43)
[2023-05-27] MEDS: WARFARIN (*PBKC) 3 MG TABLET PO (18:43)
[2023-05-27] MEDS: metFORMIN HCL 250 MG TABLET PO (18:45)
[2023-05-27 21:09] LABS: Glucose Point of Care 152 mg/dl (65-105)
[2023-05-27] MEDS: FINASTERIDE 5 MG TABLET PO (21:18)
[2023-05-27] MEDS: CLOPIDOGREL BISULFATE 75 MG TABLET PO (21:18)
[2023-05-28] VITALS (9 sets, daily range): BP systolic 86–109; BP diastolic 50–75; PULSE 61–117; RESP 14–16; TEMP 35.9–36.3; O2SAT 98–100
--- NOTE | 2023-05-28 | ECHO_ITS ---
Patient Info Name: En Wilson Age: 82 years : 1940 Gender: Male Ht: 68 in Wt: 234 lbs BSA: 2.30 m2 HR: 76 bpm BP: 84 / 59 mmHg Heart Rhythm: Atrial Fibrillation Technical Quality: Fair Exam Date: 05/28/2023 1:19 PM Exam Location: [facility] Patient Status: Inpatient Admit Date: 05/26/2023 Staff Ordering Physician: Mayito Jennings MD Design Engineering Specialist: Adenike Mclaughlin RDCS Attending Provider: Geena Sanders DO Exam Type: CA echo dop color flow w con Study Info Indications - chf Complete two-dimensional, color flow and Doppler transthoracic echocardiogram is performed with contrast to opacify the left ventricle and to improve the deliniation of the left ventricle endocardial borders. Contrast/Agitated Saline Contrast/Ag. Saline: Definity Amount: 2.00 ml Administered By: Adenike Mclaughlin RDCS Existing IV Access: Yes IV Access Condition: patent with no signs of infiltration Summary 1. Technically somewhat challenging exam, definity contrast injected to improve study quality. 2. Mild LV enlargement with overall preserved systolic contractility noted following contrast injection. 3. Biatrial dilation. 4. Sclerotic but nonstenotic aortic valve. 5. Atrial fibrillation. 6. Compared with exam from 2020 the results are similar, LV ejection fraction slightly increased although contrast injection improves the quality of current exam. Left Ventricle Left ventricular chamber dimension is mildly enlarged. Left ventricular systolic function is normal, estimated at 50-55%. The left ventricular diastolic function is indeterminate. Right Ventricle Right ventricular chamber dimension is normal. Left Atria Left atrial chamber dimension is severely enlarged. Right Atria Right atrial chamber dimension is severely enlarged. Aortic Valve The aortic valve is trileaflet. There is mild aortic valve sclerosis. Pulmonic Valve The pulmonic valve is not well visualized. Mitral Valve The mitral valve has normal leaflets. Tricuspid Valve The tricuspid valve leaflets are normal. Pericardium/Pleural The pericardium appears normal. Aorta The aortic root size at the sinus of Valsalva is normal. Left Ventricular Outflow Tract Name Value Normal LVOT 2D LVOT Diameter 2.11 cm LVOT Doppler LVOT Peak Gradient 2 mmHg LVOT Mean Gradient 1 mmHg LVOT VTI 11.81 cm LVOT VTI/AV VTI Ratio 0.33 LVOT Stroke Volume 41.46 ml LVOT CO 2.50 l/min LVOT CI 1.09 L/min/m2 Pulmonic Valve Name Value Normal PV Doppler PV Peak Gradient 4 mmHg Mitral Valve Name Value Normal
[2023-05-28] MEDS: HYDROcodone/acetaminophen (*CRX) 5-325 MG TABLET 1 TAB PO (02:52)
[2023-05-28] MEDS: LINACLOTIDE 145 MCG CAPSULE 290 MCG PO (05:38)
[2023-05-28 07:05] LABS: Basophils Percent Auto 0.4 % (0.2-1.2); Eosinophils Absolute Auto 0.3 K/mm3 (0-0.3); Eosinophils Percent Auto 3.7 % (0-4.4); Hematocrit 36.5 % (42.0-52.0); Hemoglobin 11.6 g/dL (14.0-18.0); Immature Granulocyte Absolute 0.04 K/mm3 (0.00-0.031); Immature Granulocyte Percent A 0.5 % (0-0.5); Lymphocytes Absolute Auto 1.36 K/mm3 (0.9-3.2); Lymphocytes Percent Auto 17.5 % (18.3-44.2); Mean Corpuscular HGB Conc 31.8 g/dl (32-36); Mean Corpuscular Hemoglobin 31.1 pg (26-34); Mean Corpuscular Volume 97.9 fl (80-100); Mean Platelet Volume 9.4 fl (7.4-10.4); Monocytes Absolute Auto 0.6 K/mm3 (0.1-0.6); Monocytes Percent Auto 7.4 % (2.6-8.5); Neutrophils Absolute Auto 5.5 K/mm3 (1.3-6.7); Neutrophils Percent Auto 70.5 % (45.5-73.1); Platelet Count Result 232 k/mm3 (150-375); Red Blood Count 3.73 M/mm3 (4.6-6.20); Red Cell Distribution Width 13.4 % (11.5-14.5); White Blood Count 7.8 K/mm3 (4.5-10.0)
[2023-05-28 07:16] LABS: Alanine Aminotransferase 22 U/L (6-50); Albumin Level 3.3 g/dL (3.5-5.1); Alkaline Phosphatase 108 U/L (38-126); Anion Gap 4 mmol/L (8-16); Aspartate Amino Transferase 25 U/L (17-59); Bilirubin,Total 0.8 mg/dL (0.2-1.3); Blood Urea Nitrogen 34 mg/dL (9-20); Calcium 8.7 mg/dL (8.4-10.2); Carbon Dioxide 29 mmol/L (22-30); Chloride 104 mmol/L (98-107); Estimated CRCL calculation 55 ml/min; Estimated Glomerular Filt Rate > 60; Glucose 117 mg/dL (65-110); Potassium 3.8 mmol/L (3.4-5.0); Sodium 137 mmol/L (137-145)
[2023-05-28 07:38] LABS: Glucose Point of Care 116 mg/dl (65-105)
[2023-05-28 07:43] LABS: INR 2.8; Prothrombin Time 31.6 Seconds (11.1-14.7)
[2023-05-28] MEDS: metFORMIN HCL 250 MG TABLET PO ×2 (09:24→17:33)
[2023-05-28] MEDS: ACIDOPHILUS/BULGARICUS CHEWABLE TABLET 4 TABLET PO (09:24)
[2023-05-28] MEDS: glipiZIDE XL 2.5 MG TAB.ER.24 PO (09:24)
[2023-05-28] MEDS: TAMSULOSIN HCL 0.4 MG CAPSULE PO ×2 (09:25→17:33)
[2023-05-28] MEDS: EMPAGLIFLOZIN 10 MG TABLET PO (09:25)
[2023-05-28] MEDS: BUMETANIDE 0.5 MG TABLET PO (09:25)
[2023-05-28] MEDS: SOLIFENACIN 5 MG TABLET PO (09:25)
[2023-05-28] MEDS: MIDODRINE HCL 10 MG TABLET PO ×3 (09:25→17:33)
[2023-05-28] MEDS: ATORVASTATIN 40 MG TABLET PO (09:25)
[2023-05-28] MEDS: TRIAMCINOLONE ACET 0.1% OINT 15 GM TUBE 1 APPLIC TOPICAL ×2 (09:25→17:33)
[2023-05-28] MEDS: FLUDROCORTISONE ACETATE 0.1 MG TABLET PO (09:25)
[2023-05-28] MEDS: METOPROLOL TARTRATE 6.25 MG TABLET PO (09:25)
[2023-05-28] MEDS: TOLNAFTATE 1% POWDER 45 GM BTL 1 APPLIC TOPICAL (09:26)
[2023-05-28 11:29] LABS: Glucose Point of Care 172 mg/dl (65-105)
[2023-05-28] MEDS: PERFLUTREN LIPID MICROSPHERES 1.5 ML VIAL DILUTED TO 10 ML TOTAL VOLUME IV PUSH (13:55)
--- NOTE | 2023-05-28 14:19 | IVDEFINITY ---
Prior to administration of IV Definity the patient was educated on the risks and benefits of the imaging enhancing agent including potential adverse side effects. The patient verbalized understanding. Allergies were verified. No exclusion criteria were identified and at least one of the following inclusion criteria were met: 1) physician request, 2) patient technically difficult to image (per the [place] [employer]chocardi[employer] guidelines of two or more segments not discernable within the apical view), or 3) questionable left ventricular function. ?
--- NOTE | 2023-05-28 15:14 | PM.DS ---
DS: Admitting Diagnosis Discharge Date 05/28/23 Admitting Diagnosis Frequent falls DS: Discharge Diagnosis Discharge Diagnosis (1) Syncope: Code(s): R55 - Syncope and collapse Status: Acute (2) Hypotension: Qualifiers: Hypotension type: other hypotension type Qualified Code(s): I95.89 - Other hypotension Code(s): I95.9 - Hypotension, unspecified Status: Acute (3) Acute kidney injury superimposed on CKD: Code(s): N17.9 - Acute kidney failure, unspecified; N18.9 - Chronic kidney disease, unspecified Status: Acute (4) Acute dehydration: Code(s): E86.0 - Dehydration Status: Acute (5) Frequent falls: Code(s): R29.6 - Repeated falls Status: Acute (6) A-fib: Qualifiers: Atrial fibrillation type: unspecified Qualified Code(s): I48.91 - Unspecified atrial fibrillation Code(s): I48.91 - Unspecified atrial fibrillation Status: Chronic (7) CHF (congestive heart failure): Code(s): I50.9 - Heart failure, unspecified Status: Acute (8) Type 2 diabetes mellitus with hyperglycemia: Qualifiers: Diabetes mellitus residential insulin use: without residential use Qualified Code(s): E11.65 - Type 2 diabetes mellitus with hyperglycemia Code(s): E11.65 - Type 2 diabetes mellitus with hyperglycemia Status: Acute (9) Pacemaker: Code(s): Z95.0 - Presence of cardiac pacemaker Status: Acute (10) Wound of left foot: Code(s): S91.302A - Unspecified open wound, left foot, initial encounter Status: Acute (11) Skin tear of right upper extremity: Code(s): S41.111A - Laceration without foreign body of right upper arm, initial encounter Status: Inactive (12) Chronic back pain: Qualifiers: Back pain laterality: bilateral Back pain location: thoracic back pain Qualified Code(s): M54.6 - Pain in thoracic spine; G89.29 - Other chronic pain Code(s): M54.9 - Dorsalgia, unspecified; G89.29 - Other chronic pain Status: Acute (13) Obstructive sleep apnea on CPAP: Code(s): G47.33 - Obstructive sleep apnea (adult) (pediatric); Z99.89 - Dependence on other enabling machines and devices Status: Acute DS: Summary Hospital Course Reason for hospitalization: 82yo male with CHF, CKD, DM and HoTN here for syncope. 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 Please see H&P for details. Hospital Course: Patient fell twice prior to admission with head trauma.? He is on anticoagulation.? Related to syncopal episode presumably due to hypotension.? Blood pressure on admission was 87/34.? He is on 3 diuretics so probably dehydrated as well given his acute kidney injury.? Brain CT showed no acute abnormalities.? Diuretics held and started on IV fluids.? He worked with PT/OT. Midodrine and Florinef resumed. He feels much better. Able to be up and around without presyncope. Yung hose started. BUN 114, Cr 2.0 on admission.? Baseline creatinine runs 1.3-1.6.? Suspect related to dehydration from continued diuretic use and probably poor p.o. intake. Hgb okay so do not suspect GI bleed. With IV fluids, creatinine has trended downward to 1.1 and BUN 34.?he was resumed on low dose Bumex. Patient with multiple bruising and skin tears noted due to frequent falls. Heart rate well controlled at rest but episodes of tachycardia with exertion. Probably related to deconditioning.? He is not on rate lowering agents at home. On Coumadin for anticoagulation.? INR therapeutic.?Personally discussed with patient about risks versus benefits of continuing anticoagulation given his frequent falls. He voices understanding of the risks/benefits of Coumadin and wishes to continue anticoagulation. We stopped Plavix and added ASA. Metoprolol was added at low dose with benefit of improved heart rate. Patient with know CHF. Probably chronic systolic and diastolic CHF. [facility] report in February references an EF 40-45%.
[2023-05-28 16:51] LABS: Glucose Point of Care 182 mg/dl (65-105)
[2023-05-28] MEDS: PRAMIPEXOLE 1 MG TABLET 2 MG PO (17:33)
[2023-05-28] MEDS: WARFARIN (*PBKC) 3 MG TABLET PO (17:33)
== END 2023-05-28 17:48 | disposition swing bed (61) | DRG 315 ==
LOC: ANHED 10:48 → ANH3MEDSUR 11:27
PROVIDERS: Nurse Practitioner; Admitting Provider Student in an Organized Health Care Education/Training Program; Emergency Provider Emergency Medicine; PCP Family Medicine; Visit Provider Internal Medicine
DX: I95.89 Other hypotension (principal); I13.0 Hypertensive heart and chronic kidney disease with heart failure and stage 1 through stage 4 chronic kidney disease, or unspecified chronic kidney disease; I50.42 Chronic combined systolic (congestive) and diastolic (congestive) heart failure; N17.9 Acute kidney failure, unspecified; I43 Cardiomyopathy in diseases classified elsewhere; W19.XXXA Unspecified fall, initial encounter; S41.111A Laceration without foreign body of right upper arm, initial encounter; E86.0 Dehydration; E11.22 Type 2 diabetes mellitus with diabetic chronic kidney disease; E11.65 Type 2 diabetes mellitus with hyperglycemia; G47.33 Obstructive sleep apnea (adult) (pediatric); G89.29 Other chronic pain; I49.5 Sick sinus syndrome; I48.91 Unspecified atrial fibrillation; I87.2 Venous insufficiency (chronic) (peripheral); I25.10 Atherosclerotic heart disease of native coronary artery without angina pectoris; N18.30 Chronic kidney disease, stage 3 unspecified; L84 Corns and callosities; M10.9 Gout, unspecified; M15.9 Polyosteoarthritis, unspecified; N40.0 Benign prostatic hyperplasia without lower urinary tract symptoms; M54.9 Dorsalgia, unspecified; Z79.02 Long term (current) use of antithrombotics/antiplatelets; Z79.01 Long term (current) use of anticoagulants; Z79.84 Long term (current) use of oral hypoglycemic drugs; Z95.0 Presence of cardiac pacemaker; Z99.89 Dependence on other enabling machines and devices; Z91.199 Patient's noncompliance with other medical treatment and regimen due to unspecified reason; Z96.612 Presence of left artificial shoulder joint; Z96.641 Presence of right artificial hip joint; Z95.5 Presence of coronary angioplasty implant and graft; Z98.41 Cataract extraction status, right eye; Z98.42 Cataract extraction status, left eye; Z96.1 Presence of intraocular lens; Z87.891 Personal history of nicotine dependence
CPT/HCPCS: 36415; 70450; 71045; 73630; 80053; 81003; 82948; 83036; 83605; 83735; 83880; 84132; 84484; 85025; 85610; 85652; 85730; 87040; 93005; 93970; 96360; 96361; 97110; 97116; 97161; 97165; 97530; 97535; 99285; A9270; C8929; G0378; J1815; J7030; Q9957

== ENCOUNTER 2023-05-28 18:52 | Inpatient (IN) | payer MEDICARE, SELFPAY ==
--- NOTE | 2023-05-28 19:23 | ADMGEN ---
This patient, En Wilson, was admitted to 2nd Floor Room 207-2. Patient/family oriented to hospital policies and general routines including ID bracelet, bed and alarms, visiting hours, pain management, procedures, bathroom and other care routines, personal items, smoking policy, room service/diet, and visiting hours. Information on how to activate the Rapid Response Team has been discussed. Patient/Family are encouraged to report perceived risks to care and to ask questions if they do not understand what they are told or what they should do.
[2023-05-28 19:33] VITALS: BMI 34.2
[2023-05-28 19:34] VITALS: BMI 34.2
[2023-05-28 19:37] VITALS: BP 88/50; PULSE 82; RESP 18; TEMP 36.2; O2SAT 98
[2023-05-28] MEDS: TOLNAFTATE 1% POWDER 45 GM BTL 1 APPLIC TOPICAL (20:58)
[2023-05-28] MEDS: FINASTERIDE 5 MG TABLET PO (20:58)
[2023-05-28 21:06] LABS: Glucose Point of Care 161 mg/dl (65-105)
--- NOTE | 2023-05-28 21:30 | PC.NURSE ---
Patient has dressings to his right upper arm, left elbow and left plantar surface. Patient refuses to let nurse change dressings to assess sites, saying it was done right before he left the other hospital.
[2023-05-28] MEDS: traMADol HCL (*CRX) 50 MG TABLET PO (23:59)
[2023-05-29] VITALS: BP 99/61; PULSE 101; RESP 20; TEMP 36.4; O2SAT 97
--- NOTE | 2023-05-29 03:40 | PC.NURSE ---
Patient took ultram for back pain, is reporting that his pain is worse but does not want any other med at this time, states that he will try to reposition as needed.
[2023-05-29 05:31] LABS: INR 3.7; Prothrombin Time 36.9 Seconds (9.50-12.10)
--- NOTE | 2023-05-29 06:11 | PC.NURSE ---
On 05/29/23, the MEASURER MACHINE, [Letitia Tucker ], provided care and completed [facility] documentation on this patient. I have reviewed the MEASURER MACHINE's documentation and agree with the findings.
--- NOTE | 2023-05-29 07:32 | PM.IMHP ---
H&P: HPI History of Present Illness Date/Time: 05/29/23 07:32 Chief Complaint: Debility requiring acute rehabilitation Narrative: This is an 82-year-old male patient with extensive past medical history as listed below was recently admitted to [facility] with frequent falls and syncopal episodes suspected to be related to chronic hypotension. Patient is on midodrine and Florinef to maintain blood pressure. He was previously on significant amounts diuretics which have been decreased as result of hospitalization. Patient has a history of chronic low back pain for which he takes [place] twice daily. Patient reports chronic low back pain that has not been relieved or improved by tramadol that was ordered instead of [place]. He denies any dizziness or lightheadedness with standing at this time. He reports his appetite is good. Patient is [facility] for acute [facility]. Review of Systems Review of Systems: All systems reviewed & are unremarkable except as noted in HPI and below PMFSH Past Medical History Medical History (Updated 05/29/23 @ 14:17 by Hieu Ramirez APRN) A-fib Acute hyperglycemia Acute hypokalemia Acute hypokalemia Acute hyponatremia Acute on chronic kidney failure Acute renal insufficiency Acute UTI Anemia Arthritis Bleeding from mouth BPH (benign prostatic hyperplasia) Bradycardia with 31-40 beats per minute Cardiomyopathy Cellulitis of left leg Chest pain Chronic congestive heart failure Echocardiogram 12/20/2020: 4 chamber dilatation, moderate left ventricular enlargement with mild lead depressed systolic function with EF of 40-45% CKD (chronic kidney disease) stage 3, GFR 30-59 ml/min Coronary artery disease Degenerative disc disease Diabetes Diastolic heart failure Epistaxis Essential hypertension Fever Foot callus Gout Hemoptysis Hepatic cyst Hypertension Hypotension Left leg cellulitis Left rib fracture Osteoarthritis Osteoarthritis 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 sides of body Pacemaker Peripheral neuropathy Renal cyst Sepsis Syncope Syncope and collapse Tachy-demetrio syndrome Wound of left foot Surgical History Surgical History History of arthroplasty of left shoulder History of heart artery stent (~07/2021) X2 History of total hip replacement Right side S/p bilateral shoulder joint replacement Status post cardiac pacemaker procedure (~09/2021) Due to AFib with systolic pauses Status post cataract extraction of both eyes with insertion of intraocular lens Family History Family History Father Family history of malignant neoplasm of stomach at the age of 59 Mother Cancer Social History Social History Social History: The patient lives with his of 59 years. They live in a duplex. He ambulates with a cane. He has 2 children. He is retired from [employer]. The patient smoked a pack a cigarettes a day for few years and quit 52 years ago. No alcohol or illicit drugs. Code status: Full code Surrogate decision maker: Primary care physician: Dr. Kathi Branham Smoking packs per day: 1 Smoking cigarettes per day: 20.0 Years smoked: 5 Smoking pack-years: 5.00 Smoking status: Never smoker Tobacco type: cigarettes Smoking end date: 12/02/69 Alcohol intake: never Substance use: never Substance use type: does not use Lack of Transportation: No Lack of Food: Never True Current Housing: I Have Housing Concerned About Future Housing: No Difficulty Paying Gas/Electric Bills: No Difficulty Paying for Meds: No Currently Unemployed: No Education: Bachelor's Degree Difficulty w/ Childcare or Family Care: No Living arrangements: with family Occupation/Education: retired Gender identity (if verbalized by the patient)
[2023-05-29 07:46] LABS: Glucose Point of Care 136 mg/dl (65-105)
[2023-05-29 08:00] VITALS: BP 120/60; PULSE 71; RESP 16; TEMP 36.4; O2SAT 98
[2023-05-29] MEDS: BUMETANIDE 1 MG TABLET 0.5 MG PO (09:00)
[2023-05-29] MEDS: SOLIFENACIN 5 MG TABLET PO (09:00)
[2023-05-29] MEDS: DOCUSATE SODIUM 100 MG CAPSULE PO (09:01)
[2023-05-29] MEDS: MIDODRINE HCL 2.5 MG TABLET 10 MG PO ×3 (09:01→17:08)
[2023-05-29] MEDS: EMPAGLIFLOZIN 10 MG TABLET PO (09:01)
[2023-05-29] MEDS: ATORVASTATIN 40 MG TABLET PO (09:02)
[2023-05-29] MEDS: ASPIRIN 81 MG ENTERIC TABLET PO (09:02)
[2023-05-29 09:03] VITALS: PULSE 71
[2023-05-29] MEDS: FLUDROCORTISONE ACETATE 0.1 MG TABLET PO (09:03)
[2023-05-29] MEDS: TAMSULOSIN HCL 0.4 MG CAPSULE PO ×2 (09:03→17:08)
[2023-05-29] MEDS: METOPROLOL SUCCINATE EXT REL 12.5 MG TABCR PO (09:03)
[2023-05-29] MEDS: ACETAMINOPHEN 325 MG TABLET 650 MG PO (09:04)
[2023-05-29] MEDS: glipiZIDE XL 2.5 MG TAB.ER.24 PO (09:13)
[2023-05-29] MEDS: metFORMIN HCL 500 MG TABLET 250 MG PO ×2 (10:01→17:07)
[2023-05-29] MEDS: TOLNAFTATE 1% POWDER 45 GM BTL 1 APPLIC TOPICAL ×2 (10:03→21:01)
[2023-05-29] MEDS: TRIAMCINOLONE ACET 0.1% OINT 15 GM TUBE 1 APPLIC TOPICAL ×2 (10:11→17:09)
[2023-05-29 11:42] LABS: Glucose Point of Care 142 mg/dl (65-105)
[2023-05-29 16:00] VITALS: BP 104/55; PULSE 66; RESP 16; TEMP 36.4; O2SAT 99
[2023-05-29 16:50] LABS: Glucose Point of Care 161 mg/dl (65-105)
[2023-05-29] MEDS: PRAMIPEXOLE 1 MG TABLET 2 MG PO (17:09)
[2023-05-29] MEDS: FINASTERIDE 5 MG TABLET PO (21:00)
[2023-05-29] MEDS: HYDROcodone/acetaminophen (*CRX) 5-325 MG TABLET 1 TAB PO (21:00)
[2023-05-29 21:03] LABS: Glucose Point of Care 132 mg/dl (65-105)
[2023-05-30] VITALS: BP 86/64; PULSE 79; RESP 18; TEMP 36.6; O2SAT 100
[2023-05-30 06:50] LABS: Prothrombin Time 30.8 Seconds (9.50-12.10)
[2023-05-30 07:41] LABS: Glucose Point of Care 198 mg/dl (65-105)
[2023-05-30 08:00] VITALS: BP 107/57; PULSE 79; RESP 16; TEMP 36.6; O2SAT 98
[2023-05-30] MEDS: MIDODRINE HCL 2.5 MG TABLET 10 MG PO ×3 (08:51→16:49)
[2023-05-30] MEDS: BUMETANIDE 1 MG TABLET 0.5 MG PO (08:51)
[2023-05-30] MEDS: TAMSULOSIN HCL 0.4 MG CAPSULE PO ×2 (08:52→16:50)
[2023-05-30] MEDS: SOLIFENACIN 5 MG TABLET PO (08:52)
[2023-05-30] MEDS: FLUDROCORTISONE ACETATE 0.1 MG TABLET PO (08:52)
[2023-05-30] MEDS: ASPIRIN 81 MG ENTERIC TABLET PO (08:52)
[2023-05-30] MEDS: EMPAGLIFLOZIN 10 MG TABLET PO (08:53)
[2023-05-30] MEDS: glipiZIDE XL 2.5 MG TAB.ER.24 PO (08:53)
[2023-05-30] MEDS: metFORMIN HCL 500 MG TABLET 250 MG PO ×2 (08:53→16:48)
[2023-05-30] MEDS: ATORVASTATIN 40 MG TABLET PO (08:54)
[2023-05-30] MEDS: TOLNAFTATE 1% POWDER 45 GM BTL 1 APPLIC TOPICAL (08:55)
[2023-05-30 08:56] VITALS: PULSE 72
[2023-05-30] MEDS: METOPROLOL SUCCINATE EXT REL 12.5 MG TABCR PO (08:56)
[2023-05-30] MEDS: TRIAMCINOLONE ACET 0.1% OINT 15 GM TUBE 1 APPLIC TOPICAL ×2 (08:57→16:51)
[2023-05-30] MEDS: HYDROcodone/acetaminophen (*CRX) 5-325 MG TABLET 1 TAB PO ×2 (10:28→23:17)
[2023-05-30 11:42] LABS: Glucose Point of Care 149 mg/dl (65-105)
[2023-05-30 16:00] VITALS: BP 95/60; PULSE 72; RESP 16; TEMP 36.6; O2SAT 98
[2023-05-30 16:45] LABS: Glucose Point of Care 119 mg/dl (65-105)
[2023-05-30] MEDS: PRAMIPEXOLE 1 MG TABLET 2 MG PO (17:26)
--- NOTE | 2023-05-30 18:03 | PHAR ---
SPOKE WITH DRAGAN MORAN AT [facility] PATIENT BROUGHT IN [facility] RX [phone] BOTTLE WHICH IS SEALED LABELED LINZESS 290MCG #30 TAKE ONE DAILY.
[2023-05-30] MEDS: FINASTERIDE 5 MG TABLET PO (21:19)
[2023-05-30 21:20] LABS: Glucose Point of Care 157 mg/dl (65-105)
[2023-05-30 23:08] VITALS: BP 125/85; PULSE 89; RESP 15; TEMP 36.3; O2SAT 97
[2023-05-31] MEDS: HYDROcodone/acetaminophen (*CRX) 5-325 MG TABLET 1 TAB PO ×2 (05:48→22:24)
[2023-05-31 07:55] LABS: Glucose Point of Care 124 mg/dl (65-105)
[2023-05-31 08:00] VITALS: BP 93/53; PULSE 90; RESP 16; TEMP 36.4; O2SAT 97
[2023-05-31] MEDS: metFORMIN HCL 500 MG TABLET 250 MG PO ×2 (09:49→17:49)
[2023-05-31] MEDS: ATORVASTATIN 40 MG TABLET PO (09:50)
[2023-05-31] MEDS: ASPIRIN 81 MG ENTERIC TABLET PO (09:50)
[2023-05-31] MEDS: BUMETANIDE 1 MG TABLET 0.5 MG PO (09:50)
[2023-05-31 09:51] VITALS: PULSE 90
[2023-05-31] MEDS: glipiZIDE XL 2.5 MG TAB.ER.24 PO (09:51)
[2023-05-31] MEDS: METOPROLOL SUCCINATE EXT REL 12.5 MG TABCR PO (09:51)
[2023-05-31] MEDS: TAMSULOSIN HCL 0.4 MG CAPSULE PO ×2 (09:51→17:49)
[2023-05-31] MEDS: SOLIFENACIN 5 MG TABLET PO (09:51)
[2023-05-31] MEDS: MIDODRINE HCL 2.5 MG TABLET 10 MG PO ×3 (09:51→17:49)
[2023-05-31] MEDS: EMPAGLIFLOZIN 10 MG TABLET PO (09:51)
[2023-05-31] MEDS: FLUDROCORTISONE ACETATE 0.1 MG TABLET PO (09:51)
[2023-05-31] MEDS: TRIAMCINOLONE ACET 0.1% OINT 15 GM TUBE 1 APPLIC TOPICAL (09:57)
[2023-05-31] MEDS: SILVERGEL (ELTA) 45 ML 1 APPLIC TOPICAL (09:57)
[2023-05-31 11:56] LABS: Glucose Point of Care 172 mg/dl (65-105)
[2023-05-31 14:36] LABS: INR 1.9
[2023-05-31 16:00] VITALS: BP 102/51; PULSE 84; RESP 18; TEMP 36.3; O2SAT 98
[2023-05-31 16:57] LABS: Glucose Point of Care 164 mg/dl (65-105)
[2023-05-31] MEDS: WARFARIN (*PBKC) 1 MG TABLET 3 MG PO (17:50)
[2023-05-31] MEDS: PRAMIPEXOLE 1 MG TABLET 2 MG PO (17:54)
[2023-05-31] MEDS: FINASTERIDE 5 MG TABLET PO (20:47)
[2023-05-31 21:54] LABS: Glucose Point of Care 180 mg/dl (65-105)
[2023-06-01] VITALS: BP 123/65; PULSE 80; RESP 18; TEMP 36.5; O2SAT 98
[2023-06-01 08:00] VITALS: BP 107/55; PULSE 88; RESP 16; TEMP 36.1; O2SAT 98
[2023-06-01 08:02] LABS: Glucose Point of Care 113 mg/dl (65-105)
[2023-06-01] MEDS: metFORMIN HCL 500 MG TABLET 250 MG PO ×2 (08:45→17:14)
--- NOTE | 2023-06-01 08:50 | PHAR ---
verified pt.'s home medication linzess 290mcg capsule, 1 by mouth daily.
[2023-06-01] MEDS: FLUDROCORTISONE ACETATE 0.1 MG TABLET PO (09:54)
[2023-06-01] MEDS: TAMSULOSIN HCL 0.4 MG CAPSULE PO ×2 (09:54→17:16)
[2023-06-01] MEDS: EMPAGLIFLOZIN 10 MG TABLET PO (09:54)
[2023-06-01] MEDS: ATORVASTATIN 40 MG TABLET PO (09:54)
[2023-06-01] MEDS: SOLIFENACIN 5 MG TABLET PO (09:55)
[2023-06-01] MEDS: MIDODRINE HCL 2.5 MG TABLET 10 MG PO ×3 (09:55→17:16)
[2023-06-01] MEDS: ASPIRIN 81 MG ENTERIC TABLET PO (09:55)
[2023-06-01 09:56] VITALS: PULSE 77
[2023-06-01] MEDS: BUMETANIDE 0.5 MG TABLET PO (09:56)
[2023-06-01] MEDS: METOPROLOL SUCCINATE EXT REL 12.5 MG TABCR PO (09:56)
[2023-06-01] MEDS: glipiZIDE XL 2.5 MG TAB.ER.24 PO (09:59)
[2023-06-01] MEDS: HYDROcodone/acetaminophen (*CRX) 5-325 MG TABLET 1 TAB PO ×2 (11:38→21:12)
[2023-06-01 11:42] LABS: Glucose Point of Care 144 mg/dl (65-105)
--- NOTE | 2023-06-01 11:55 | PC.NURSE ---
Pt dexcom device reading 148 at this time.
[2023-06-01 16:00] VITALS: BP 112/70; PULSE 71; RESP 19; TEMP 36.1; O2SAT 94
[2023-06-01 17:02] LABS: Glucose Point of Care 127 mg/dl (65-105)
[2023-06-01] MEDS: PRAMIPEXOLE 1 MG TABLET 2 MG PO (17:15)
[2023-06-01] MEDS: WARFARIN (*PBKC) 1 MG TABLET 3 MG PO (17:18)
[2023-06-01] MEDS: FINASTERIDE 5 MG TABLET PO (21:12)
[2023-06-01] MEDS: DOCUSATE SODIUM 100 MG CAPSULE PO (21:12)
[2023-06-01 21:17] LABS: Glucose Point of Care 124 mg/dl (65-105)
[2023-06-01 23:46] VITALS: BP 103/72; PULSE 72; RESP 18; TEMP 36.6; O2SAT 96
--- NOTE | 2023-06-02 03:45 | PC.NURSE ---
Pt sleeping and resting comfortably, RR even and nonlabored, call sierra at pt. side.
--- NOTE | 2023-06-02 05:07 | PC.NURSE ---
Pt assisted to chair per request c SBA and walker. Pt bathed self this morning c warm cloths and dressed self for P.T. this morning. Pt sitting in chair c call sierra at side.
[2023-06-02 05:25] LABS: INR 1.7; Prothrombin Time 17.5 Seconds (9.50-12.10)
[2023-06-02] MEDS: HYDROcodone/acetaminophen (*CRX) 5-325 MG TABLET 1 TAB PO ×2 (07:04→23:54)
[2023-06-02 07:38] LABS: Glucose Point of Care 127 mg/dl (65-105)
[2023-06-02 07:56] VITALS: BP 100/60; PULSE 89; RESP 14; TEMP 36.4; O2SAT 96
[2023-06-02 08:51] VITALS: PULSE 89
[2023-06-02] MEDS: ATORVASTATIN 40 MG TABLET PO (08:51)
[2023-06-02] MEDS: METOPROLOL SUCCINATE EXT REL 12.5 MG TABCR PO (08:51)
[2023-06-02] MEDS: FLUDROCORTISONE ACETATE 0.1 MG TABLET PO (08:51)
[2023-06-02] MEDS: SOLIFENACIN 5 MG TABLET PO (08:51)
[2023-06-02] MEDS: ASPIRIN 81 MG ENTERIC TABLET PO (08:51)
[2023-06-02] MEDS: EMPAGLIFLOZIN 10 MG TABLET PO (08:51)
[2023-06-02] MEDS: TAMSULOSIN HCL 0.4 MG CAPSULE PO ×2 (08:51→16:49)
[2023-06-02] MEDS: BUMETANIDE 0.5 MG TABLET PO (08:52)
[2023-06-02] MEDS: glipiZIDE XL 2.5 MG TAB.ER.24 PO (08:52)
[2023-06-02] MEDS: metFORMIN HCL 500 MG TABLET 250 MG PO ×2 (08:53→16:50)
[2023-06-02] MEDS: MIDODRINE HCL 2.5 MG TABLET 10 MG PO ×3 (08:53→16:50)
[2023-06-02 11:00] VITALS: BP 114/68; PULSE 86; RESP 16; TEMP 36.6; O2SAT 98
[2023-06-02 11:43] LABS: Glucose Point of Care 138 mg/dl (65-105)
[2023-06-02 16:00] VITALS: BP 110/63; PULSE 82; RESP 18; TEMP 36.8; O2SAT 98
[2023-06-02] MEDS: WARFARIN (*PBKC) 1 MG TABLET 3 MG PO (16:49)
[2023-06-02 16:50] LABS: Glucose Point of Care 209 mg/dl (65-105)
[2023-06-02] MEDS: INSULIN HUMAN LISPRO (*BKC) 1,000 UNITS/10 ML VIAL SUB-Q (16:52)
[2023-06-02] MEDS: PRAMIPEXOLE 1 MG TABLET 2 MG PO (17:01)
[2023-06-02 20:35] LABS: Glucose Point of Care 384 mg/dl (65-105)
[2023-06-02] MEDS: FINASTERIDE 5 MG TABLET PO (20:36)
[2023-06-02 20:37] LABS: Glucose Point of Care 142 mg/dl (65-105)
--- NOTE | 2023-06-02 20:44 | PC.NURSE ---
pt requests to take a shower at 2200, pt aware he needs to call for assistance when getting in/out of shower, pt asks to have a pain pill after shower, call light in reach
--- NOTE | 2023-06-02 22:47 | PC.NURSE ---
pt took shower with no problems, expresses that he would like to stay longer than his projected discharge date due to need of pain control for chronic back pain, c/o back pain after shower, pt encouraged to rest in recliner with feet elevated, call light in reach
[2023-06-03] VITALS: BP 95/59; PULSE 69; RESP 18; TEMP 36.4; O2SAT 97
[2023-06-03 07:51] LABS: Glucose Point of Care 126 mg/dl (65-105)
[2023-06-03 07:59] VITALS: BP 89/47; PULSE 90; RESP 16; TEMP 36.7; O2SAT 98
[2023-06-03] MEDS: TAMSULOSIN HCL 0.4 MG CAPSULE PO ×2 (08:37→18:13)
[2023-06-03] MEDS: metFORMIN HCL 500 MG TABLET 250 MG PO ×2 (08:37→18:13)
[2023-06-03] MEDS: FLUDROCORTISONE ACETATE 0.1 MG TABLET PO (08:37)
[2023-06-03 08:38] VITALS: PULSE 90
[2023-06-03] MEDS: EMPAGLIFLOZIN 10 MG TABLET PO (08:38)
[2023-06-03] MEDS: MIDODRINE HCL 2.5 MG TABLET 10 MG PO ×3 (08:38→18:14)
[2023-06-03] MEDS: ASPIRIN 81 MG ENTERIC TABLET PO (08:38)
[2023-06-03] MEDS: METOPROLOL SUCCINATE EXT REL 12.5 MG TABCR PO (08:38)
[2023-06-03] MEDS: SOLIFENACIN 5 MG TABLET PO (08:38)
[2023-06-03] MEDS: ATORVASTATIN 40 MG TABLET PO (08:39)
[2023-06-03] MEDS: BUMETANIDE 0.5 MG TABLET PO (08:39)
[2023-06-03] MEDS: glipiZIDE XL 2.5 MG TAB.ER.24 PO (08:39)
[2023-06-03 09:34] VITALS: BP 108/58
[2023-06-03] MEDS: HYDROcodone/acetaminophen (*CRX) 5-325 MG TABLET 1 TAB PO ×2 (09:37→23:16)
[2023-06-03 11:52] LABS: Glucose Point of Care 112 mg/dl (65-105)
[2023-06-03 16:00] VITALS: BP 101/49; PULSE 100; RESP 14; TEMP 36.6; O2SAT 98
[2023-06-03 16:48] LABS: Glucose Point of Care 98 mg/dl (65-105)
[2023-06-03] MEDS: PRAMIPEXOLE 1 MG TABLET 2 MG PO (18:13)
[2023-06-03] MEDS: WARFARIN (*PBKC) 1 MG TABLET 3 MG PO (18:16)
[2023-06-03 19:40] LABS: Glucose Point of Care 201 mg/dl (65-105)
[2023-06-03 19:53] VITALS: PULSE 100; RESP 14; O2SAT 98
[2023-06-03] MEDS: FINASTERIDE 5 MG TABLET PO (20:33)
[2023-06-04] VITALS: BP 121/61; PULSE 84; RESP 16; TEMP 36.2; O2SAT 97
--- NOTE | 2023-06-04 04:53 | PC.NURSE ---
On 06/04/23, the POLEYARD SUPERVISOR, Veronica Hines, provided care and [facility] on this patient. I have reviewed the POLEYARD SUPERVISOR's documentation and agree with the findings.
[2023-06-04 05:50] LABS: Hematocrit 36.6 % (37.0-46.0); Hemoglobin 11.5 g/dL (12.4-15.3); Mean Corpuscular HGB Conc 31.4 g/dL (32.0-36.0); Mean Corpuscular Hemoglobin 31.3 pg (27.0-31.0); Mean Corpuscular Volume 99.7 fL (78.0-102.0); Mean Platelet Volume 9.2 fl (8.7-11.0); Platelet Count Result 265 K/mm3 (150-420); Red Blood Count 3.67 M/mm3 (4.70-6.10); Red Cell Distribution Width 14.1 % (11.6-14.4); White Blood Count 5.8 K/mm3 (4.8-10.8)
[2023-06-04 06:02] LABS: INR 1.8; Prothrombin Time 19.2 Seconds (9.50-12.10)
[2023-06-04 07:48] LABS: Glucose Point of Care 110 mg/dl (65-105)
[2023-06-04 08:00] VITALS: BP 100/52; PULSE 80; RESP 16; TEMP 36.3; O2SAT 98
[2023-06-04 09:30] VITALS: PULSE 76
[2023-06-04] MEDS: SOLIFENACIN 5 MG TABLET PO (09:30)
[2023-06-04] MEDS: BUMETANIDE 0.5 MG TABLET PO (09:30)
[2023-06-04] MEDS: FLUDROCORTISONE ACETATE 0.1 MG TABLET PO (09:30)
[2023-06-04] MEDS: METOPROLOL SUCCINATE EXT REL 12.5 MG TABCR PO (09:30)
[2023-06-04] MEDS: metFORMIN HCL 500 MG TABLET 250 MG PO ×2 (09:31→17:16)
[2023-06-04] MEDS: EMPAGLIFLOZIN 10 MG TABLET PO (09:31)
[2023-06-04] MEDS: ATORVASTATIN 40 MG TABLET PO (09:31)
[2023-06-04] MEDS: glipiZIDE XL 2.5 MG TAB.ER.24 PO (09:31)
[2023-06-04] MEDS: TAMSULOSIN HCL 0.4 MG CAPSULE PO ×2 (09:31→17:14)
[2023-06-04] MEDS: MIDODRINE HCL 2.5 MG TABLET 10 MG PO ×3 (09:33→17:21)
[2023-06-04] MEDS: ASPIRIN 81 MG ENTERIC TABLET PO (09:33)
--- NOTE | 2023-06-04 09:42 | PM.EVENT ---
Event Note Event Note Event Note: Patient is worried about the weight gain and his legs swelling patient declines wearing the sanket hose and has had a small amount of weight gain. I have discussed in great detail the risk and benefits and the things I could do to help with the leg edema. I will give patient a one time dose of Lasix and we will check labs in the morning. Patient is in need of elevating legs.
[2023-06-04] MEDS: FUROSEMIDE 10 MG TABLET PO (10:14)
[2023-06-04 11:38] LABS: Glucose Point of Care 126 mg/dl (65-105)
[2023-06-04] MEDS: HYDROcodone/acetaminophen (*CRX) 5-325 MG TABLET 1 TAB PO (12:55)
[2023-06-04 16:00] VITALS: BP 112/64; PULSE 72; RESP 18; TEMP 36.6; O2SAT 95
[2023-06-04 16:48] LABS: Glucose Point of Care 90 mg/dl (65-105)
[2023-06-04] MEDS: PRAMIPEXOLE 1 MG TABLET 2 MG PO (17:15)
[2023-06-04] MEDS: WARFARIN (*PBKC) 5 MG TABLET PO (17:23)
[2023-06-04 20:00] VITALS: PULSE 72; RESP 18; O2SAT 95
[2023-06-04] MEDS: FINASTERIDE 5 MG TABLET PO (20:15)
[2023-06-04 20:27] LABS: Glucose Point of Care 144 mg/dl (65-105)
[2023-06-05] VITALS: BP 105/53; PULSE 80; RESP 18; TEMP 36.1; O2SAT 98
--- NOTE | 2023-06-05 04:19 | PC.NURSE ---
On 06/05/23, the MANUFACTURING JOB TITLES, [ Arnel Hines], provided care and completed [facility] [employer] documentation on this patient. I have reviewed the MANUFACTURING JOB TITLES's documentation and agree with the findings.
[2023-06-05 05:33] LABS: Hematocrit 37.9 % (37.0-46.0); Hemoglobin 11.7 g/dL (12.4-15.3); Mean Corpuscular HGB Conc 30.9 g/dL (32.0-36.0); Mean Corpuscular Hemoglobin 30.8 pg (27.0-31.0); Mean Corpuscular Volume 99.7 fL (78.0-102.0); Platelet Count Result 247 K/mm3 (150-420); Red Cell Distribution Width 14.3 % (11.6-14.4); White Blood Count 6.6 K/mm3 (4.8-10.8)
[2023-06-05 05:46] LABS: Anion Gap 8 mmol/L (8-16); Blood Urea Nitrogen 27 mg/dL (7-18); Calcium 8.8 mg/dL (8.5-10.1); Carbon Dioxide 26 mmol/L (21-32); Chloride 107 mmol/L (98-108); Estimated CRCL calculation 54 ml/min; Estimated Glomerular Filt Rate > 60; Glucose 117 mg/dL (70-99); INR 2.2; Osmolality Calculated 298 mOsm/kg (285-295); Potassium 3.9 mmol/L (3.5-5.1); Prothrombin Time 22.9 Seconds (9.50-12.10); Sodium 141 mmol/L (136-145)
[2023-06-05 07:55] LABS: Glucose Point of Care 115 mg/dl (65-105)
[2023-06-05 08:00] VITALS: BP 110/58; PULSE 80; RESP 14; TEMP 36.6; O2SAT 98
[2023-06-05 08:51] LABS: NT Pro B Type Natriuretic Pept 2552 pg/mL (0-450)
[2023-06-05] MEDS: BUMETANIDE 0.5 MG TABLET PO (09:41)
[2023-06-05 09:42] VITALS: PULSE 80
[2023-06-05] MEDS: SOLIFENACIN 5 MG TABLET PO (09:42)
[2023-06-05] MEDS: TAMSULOSIN HCL 0.4 MG CAPSULE PO (09:42)
[2023-06-05] MEDS: METOPROLOL SUCCINATE EXT REL 12.5 MG TABCR PO (09:42)
[2023-06-05] MEDS: EMPAGLIFLOZIN 10 MG TABLET PO (09:42)
[2023-06-05] MEDS: MIDODRINE HCL 2.5 MG TABLET 10 MG PO (09:43)
[2023-06-05] MEDS: metFORMIN HCL 500 MG TABLET 250 MG PO (09:43)
[2023-06-05] MEDS: FLUDROCORTISONE ACETATE 0.1 MG TABLET PO (09:44)
[2023-06-05] MEDS: ATORVASTATIN 40 MG TABLET PO (09:44)
[2023-06-05] MEDS: glipiZIDE XL 2.5 MG TAB.ER.24 PO (09:44)
[2023-06-05] MEDS: ASPIRIN 81 MG ENTERIC TABLET PO (09:44)
--- NOTE | 2023-06-05 09:45 | PM.DS ---
DS: Admitting Diagnosis Discharge Date 06/05/2023 Admitting Diagnosis rEHAB, DEBILITY, WEAKNESS DS: Summary Hospital Course Reason for hospitalization: Rehab, Weakness, back Pain, DM Type II Hospital Course: This is an 82-year-old male patient with extensive past medical history Hypertension, CHF, diabetes type 2, chronic back pain, back surgery, chronic diarrhea, prostate issues, urinary problems, poor EF, chronic narcotic use for back painwas recently admitted to [facility] with frequent falls and syncopal episodes suspected to be related to chronic hypotension.? Patient is on midodrine and Florinef to maintain blood pressure.?? Patient reports chronic low back pain that has not been relieved or improved by tramadol that was ordered instead of [place].? He denies any dizziness or lightheadedness with standing at this time.? He reports his appetite is good.? Patient is being discharged from a swing bed will have output physical therapy and occupational therapy will follow-up with his primary care provider. Patient is quite hesitant on discharge although he does seem quite ready insurance states that he is ready to go and he will go at this time patient will utilize a walker. Sat for over an hour with patient went over his medications discussed when to use when not to use and to ensure that he takes medication as directed. Time Spent with Patient Time attestation: Total time spent providing and/or coordinating discharge services: Exam Narrative: GENERAL:Well-appearing, well-nourished, and in no acute distress. HEAD:Normocephalic, atraumatic. EYES: PERRLA and EOMI. ENT: Nares clear, no rhinorrhea or epistaxis. Mucous membranes moist. CHEST: Clear to auscultation. No respiratory distress. HEART: irregular Regular rate and rhythm. Normal peripheral pulses. ABDOMEN: Soft, nontender, nondistended, normal active bowel sounds. EXTREMITIES: Normal range of motion. 2+ edema. Patient is is hunched over due to back pain SKIN: Warm, dry, no rash. NEURO: No focal deficits. Alert and oriented x3. DS: Data Data Completed and Pending Labs on day of discharge: Labs from last 24 hours 06/05/23 06/05/23 06/04/23 07:50 05:19 20:22 WBC 6.6 RBC 3.80 L Hgb 11.7 L Hct 37.9 MCV 99.7 MCH 30.8 MCHC 30.9 L RDW 14.3 Plt Count 247 MPV 9.0 PT 22.9 H INR 2.2 Sodium 141 Potassium 3.9 Chloride 107 Carbon Dioxide 26 Anion Gap 8 BUN 27 H Creatinine 1.10 Estim Creat Clear Calc 54 Estimated GFR > 60 Glucose 117 H POC Capillary Glucose 115 H 144 H Calculated Osmolality 298 H Calcium 8.8 NT-Pro-B Natriuret Pep 2552 H 06/04/23 06/04/23 16:46 11:37 WBC RBC Hgb Hct MCV MCH MCHC RDW Plt Count MPV PT INR Sodium Potassium Chloride Carbon Dioxide Anion Gap BUN Creatinine Estim Creat Clear Calc Estimated GFR Glucose POC Capillary Glucose 90 126 H Calculated Osmolality Calcium NT-Pro-B Natriuret Pep Discharge Plan Discharge Attending physician on discharge: Mayito Jennings Consulting providers: Hieu Ramirez; Tita Stroud Discharging Clinician: Hieu Ramirez Anticipated Discharge Date/Time: 06/05/23 09:44 Patient Disposition: Home, Self-Care Activity: as tolerated Diet: diabetic Patient Instructions: Antibiotic Form, Spironolactone (By mouth), Hydrocodone/Acetaminophen (By mouth), Warfarin (By mouth), Heart Failure (DC), Fall Prevention for Older Adults (DC) Stand Alone Forms: General Discharge Information Follow-up/Referrals: Kathi Branham MD [Primary Care Provider] - 06/09/23 2:30 pm (June 09 at 2:30 pm) Discharge Medications: New spironolactone 100 mg tablet 100 mg PO DAILY Qty: 90 0RF Continued Jardiance 10 mg Tablet 10 mg PO DAILY Qty: 90 0RF atorvastatin 40 mg tablet 40 mg PO DAILY fludrocortisone
--- NOTE | 2023-06-05 11:14 | PC.NURSE ---
Pt discharged to home. Yoly AGUDELO did 45 minutes of medication instruction with pt prior to discharge. Pt verbalized understanding of medications. Pt A/Ox3. walks with walker and is independent in his room. Pt is able to bath self and change his own cloths. Pt help to the family car with WC by RN.
--- NOTE | 2023-06-09 09:12 | PC.NURSE ---
Discharge call back complete, states did not get therapy order sent to [facility] in [facility], advised we would have case management look in to this for him. Care was good, understood instructions, no concerns except needs to continue therapy
== END 2023-06-05 10:25 | disposition home or self-care (01) | DRG 948 ==
PROVIDERS: Nurse Practitioner; Nurse Practitioner Acute Care; Nurse Practitioner Family; Admitting Provider Internal Medicine; PCP Family Medicine; Visit Provider Internal Medicine
DX: R53.81 Other malaise (principal); I13.0 Hypertensive heart and chronic kidney disease with heart failure and stage 1 through stage 4 chronic kidney disease, or unspecified chronic kidney disease; I48.20 Chronic atrial fibrillation, unspecified; I42.9 Cardiomyopathy, unspecified; I50.32 Chronic diastolic (congestive) heart failure; N18.30 Chronic kidney disease, stage 3 unspecified; E11.22 Type 2 diabetes mellitus with diabetic chronic kidney disease; E11.42 Type 2 diabetes mellitus with diabetic polyneuropathy; I25.10 Atherosclerotic heart disease of native coronary artery without angina pectoris; I95.9 Hypotension, unspecified; I49.5 Sick sinus syndrome; K76.89 Other specified diseases of liver; K52.9 Noninfective gastroenteritis and colitis, unspecified; N40.0 Benign prostatic hyperplasia without lower urinary tract symptoms; M15.9 Polyosteoarthritis, unspecified; M54.50 Low back pain, unspecified; G89.29 Other chronic pain; R29.6 Repeated falls; Z96.641 Presence of right artificial hip joint; Z96.612 Presence of left artificial shoulder joint; Z96.611 Presence of right artificial shoulder joint; Z95.5 Presence of coronary angioplasty implant and graft; Z95.0 Presence of cardiac pacemaker; Z79.82 Long term (current) use of aspirin; Z79.01 Long term (current) use of anticoagulants
CPT/HCPCS: 36415; 80048; 82948; 83880; 85027; 85610; 97110; 97161; 97165; 97530; 97535; A9270; J1815